=== PATIENT | male | born 1935 | race Caucasian/White ===

== ENCOUNTER 2019-10-06 13:11 | Observation (INO) | payer MEDICARE, OTHER, SELFPAY ==
[2019-10-06] VITALS (19 sets, daily range): BP systolic 125–166; BP diastolic 60–96; PULSE 50–80; RESP 14–20; TEMP 36–36.2; O2SAT 95–98; BMI 34.2
[2019-10-06 13:55] LABS: Add Manual Diff / Slide Review NO; Basophils Absolute Auto 100 /uL (0-100); Basophils Percent Auto 0.7 % (0-2); Eosinophils Absolute Auto 200 /uL (0-450); Eosinophils Percent Auto 2.9 % (2-4); Hematocrit 39.7 % (41-53); Hemoglobin 13.9 g/dL (13.5-17.5); Lymphocytes Absolute Auto 1700 /uL (1100-4500); Lymphocytes Percent Auto 21.8 % (25-40); Mean Corpuscular HGB Conc 35.1 % (30-36); Mean Corpuscular Hemoglobin 31.5 PG (26-34); Mean Corpuscular Volume 89.9 fL (80-100); Monocytes Absolute Auto 400 /uL (0-900); Monocytes Percent Auto 5.6 % (3-14); Neutrophils Absolute Auto 5500 /uL (1500-7000); Platelet Count 211 X10^3/uL (150-400); Prothrombin Time 11.9 SECONDS (10.1-12.7); Red Blood Cell Count 4.41 X10^6/uL (4.5-5.9); Red Cell Distribution Width 13.6 % (11.6-14.8); White Blood Cell Count 7.9 X10^3/uL (4.5-11.0)
[2019-10-06 14:00] LABS: Alanine Aminotransferase 28 IU/L (<50); Albumin 4.4 g/dL (3.5-5.0); Albumin Globulin Ratio 1.3 (1.0-2.8); Alkaline Phosphatase 88 U/L (38-126); Aspartate Aminotransferase 28 IU/L (17-59); BUN Creatinine Ratio 22.4 (6-22); Bilirubin Total 0.8 mg/dL (0.2-1.3); Blood Urea Nitrogen 32 mg/dL (9-20); Calcium 9.6 mg/dL (8.4-10.2); Carbon Dioxide 25 mmol/L (22-32); Chloride 96 mmol/L (98-107); Estimated Glomerular Filt Rate 47.3 mL/min (>60); Globulin 3.3 g/dL (1.7-4.1); HEMOLYSIS < 15 (0-50); Potassium 3.6 mmol/L (3.4-5.1); Sodium 133 mmol/L (137-145); Total Protein 7.7 g/dL (6.3-8.2)
[2019-10-06 14:11] LABS: Troponin I < 0.012 ng/mL (0.01-0.034)
[2019-10-06 14:18] LABS: Glucose 572 mg/dL (80-110)
--- NOTE | 2019-10-06 14:22 | DI.RAD.S_ITS ---
PROCEDURE: XR CHEST 1V INDICATIONS: dyspnea TECHNIQUE: One view of the chest was acquired. COMPARISON: None. FINDINGS: Surgical changes and devices: None. Lungs and pleura: Lungs are clear. No pleural effusions or pneumothorax. Mediastinum: Mediastinal contours appear normal. Heart size is normal. Bones and chest wall: No suspicious bony lesions. Overlying soft tissues appear unremarkable. IMPRESSION: No acute cardiopulmonary process is evident. Dictated by: Иван Rosario M.D. on 10/06/2019 at 14:09 Approved by: Иван Rosario M.D. on 10/06/2019 at 14:09
--- NOTE | 2019-10-06 14:24 | ED.GENADULT ---
HPI - General Adult General Chief complaint: Diabetic Problem Stated complaint: blood sugar elevated,thinks abn blood pressure Time Seen by Provider: 10/06/19 13:44 Source: patient Mode of arrival: Wheelchair Limitations: no limitations History of Present Illness HPI narrative: Patient brought here by son power of [employer], from retirement that his assisted living for multiple complaints.. Son is not completely sure of all of his medical problems and how long it has been going on but there is history of stroke. Patient is nonverbal. 3 days ago. Patient here for dyspnea right leg swelling high glucose. No prior history of diabetes. Again, unknown time onset of the symptoms Related Data Home Medications Medication Instructions Recorded Confirmed acetaminophen 650 mg PO Q4-6H PRN 10/06/19 10/06/19 albuterol sulfate 0.63 mg INHALATION Q4H PRN 10/06/19 10/06/19 cholecalciferol (vitamin D3) 50 mcg PO DAILY 10/06/19 10/06/19 [Vitamin D3] clopidogrel 75 mg PO DAILY 10/06/19 10/06/19 famotidine 20 mg PO DAILY 10/06/19 10/06/19 hydrochlorothiazide 25 mg PO DAILY 10/06/19 10/06/19 lactulose 30 g PO DAILY PRN 10/06/19 10/06/19 metformin 500 mg PO BIDAC 10/06/19 10/06/19 simvastatin 40 mg PO BEDTIME 10/06/19 10/06/19 tizanidine 2 mg PO DAILY 10/06/19 10/06/19 venlafaxine 75 mg PO BID 10/06/19 10/06/19 Allergies Allergy/AdvReac Type Severity Reaction Status Date / Time aspirin Allergy Verified 10/06/19 13:25 Penicillins Allergy Verified 10/06/19 13:25 Review of Systems Review of Systems Narrative: GENERAL: Denies chills, fatigue, malaise, fever, sweats. HEENT: Denies sinus pain, ear pain, sore throat, difficulty swallowing, dizziness. RESPIRATORY: Denies cough, wheezing, hemoptysis, sputum. Complains of dyspnea CARDIOVASCULAR: Denies chest pain, palpitations, orthopnea, edema, GASTROINTESTINAL: Denies nausea, vomiting, abdominal pain, diarrhea, constipation, melena. : Denies dysuria, frequency, incontinence, hematuria, urinary retention. MUSCULOSKELETAL: denies weakness, joint pain, or bony pain SKIN: Denies rash, skin lesions, or other NEUROLOGIC: Denies weakness, headache, numbness, change in speech, confusion, seizures, incoordination. PSYCHIATRIC: No concerning psychosocial issues. ROS Unobtainable: All systems reviewed & are unremarkable except as noted in HPI and below Patient History Social History household members: other Smoking Status: Former smoker alcohol intake: never Smoking Status: Former smoker Substance Use Type: does not use Exam Narrative Exam Narrative: GENERAL: patient appears stated age. Well-nourished, well-developed patient, in no distress, not toxic HEAD: Atraumatic. Normocephalic. EYES: Pupils equal round and reactive. Extraocular motions intact. No scleral icterus. No injection or drainage. ENT: Nose without bleeding, purulent drainage. Throat without erythema, tonsillar hypertrophy or exudate. Airway patent. NECK: Trachea midline. Non tender CARDIOVASCULAR: Regular rate and rhythm without murmurs, gallops, or rubs. RESPIRATORY: Clear to auscultation. Breath sounds equal bilaterally. No wheezes, rales, or rhonchi. GASTROINTESTINAL: Abdomen soft, non-tender, nondistended. EXTREMITIES: No edema or joint tenderness. Right leg and supportive splint, splint removed, right calf slightly grossly larger than the left, 2+ pedal edema, leg and foot warm soft and pink. BACK: Nontender without deformity or crepitance. No flank tenderness. 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 Right-sided deficits or weakness. SKIN: No rash or erythema of visible areas PSYCH: Not anxious, is cooperative Initial Vital Signs Initial Vital Signs: Vital Signs Temperature 97.0 F L 10/06/19 13:19 Pulse Rate 80 10/06/19 13:19 Respiratory Rate 18 10/06/19 13:19 Blood Pressure 163/79 H 10/06/19 13:19 Pulse Oximetry 98 10/06/19 13:19 Course Course Course Narrative: Patient was seen by hospitalist Dr. Cortez..will admit start insulin Decision to Admit Date: 10/06/19 Decision to Admit time: 18:36 Orders Ordered: Acetaminophen (Tylenol) 650 mg PO Q4H PRN PRN Reason: Pain (Scale Score 1-3) Clopidogrel Bisulfate (Plavix) 75 mg PO DAILY [facility] Dextrose (D50w) 25 gm IV PRN PRN PRN Reason: Hypoglycemia Enoxaparin Sodium (Lovenox) 40 mg SUBCUT DAILY [facility] Sodium Chloride (Normal Saline 0.9%) 1,000 mls @ 100 mls/hr IV CONT [facility] Last Admin: 10/06/19 23:44 Dose: 100 mls/hr Documented by: GEORGI Insulin Aspart (Novolog Flexpen) 0 unit SUBCUT ACHS [facility]; Protocol Last Admin: 10/06/19 21:38 Dose: 7 unit Documented by: ALEX Cosigned by: JUNAID Insulin Glargine (Lantus Solostar (Pen)) 15 unit SUBCUT 2100 [facility] Last Admin: 10/06/19 21:38 Dose: 15 unit Documented by: ALEX Cosigned by: JUNAID Naloxone HCl (Narcan) 0.2 mg IV Q2MIN PRN PRN Reason: Opiate Reversal Ondansetron HCl (Zofran) 4 mg IV Q8HR PRN PRN Reason: Nausea And Vomiting Simvastatin (Zocor) 40 mg PO BEDTIME [facility] Venlafaxine HCl (Effexor) 75 mg PO BID [facility] Discontinued Medications Sodium Chloride (Normal Saline 0.9%) 1,000 mls @ 1,000 mls/hr IV BOLUS ONE Stop: 10/06/19 21:39 Last Admin: 10/06/19 21:40 Dose: 1,000 mls/hr Documented by: ALEX Insulin Human NPH (Humulin N) 10 unit SUBCUT NOW ONE Stop: 10/06/19 18:36 Last Admin: 10/06/19 20:13 Dose: 10 unit Documented by: JUNAID Mckeonigned by: ALEX Potassium Chloride (Klor-Con M20) 40 meq PO NOW ONE Stop: 10/07/19 06:51 Reevaluation(s) Reevaluation #1: No new issues.. Awaiting evaluation by hospitalist which is now complete. Time: 18:36 Consultations Consultation #1: Spoke with hospitalist, he wants the patient before being admitted Vital Signs Vital signs: Vital Signs - 8 hr 10/06/19 13:19 10/06/19 15:30 10/06/19 16:36 Temperature 97.0 F L Pulse Rate 80 72 72 Respiratory Rate 18 16 20 Blood Pressure 163/79 H 138/63 132/75 Pulse Oximetry 98 97 96 10/06/19 17:40 Temperature Pulse Rate 70 Respiratory Rate 20 Blood Pressure 130/60 Pulse Oximetry 97 Medical Decision Making Lab Data Result diagrams: 10/07/19 05:38 10/07/19 05:38 Labs: Lab Results 10/06/19 10/06/19 10/06/19 Range/Units 13:40 13:40 13:40 WBC 7.9 (4.5-11.0) X10^3/uL RBC 4.41 L (4.5-5.9) X10^6/uL Hgb 13.9 (13.5-17.5) g/dL Hct 39.7 L (41-53) % MCV 89.9 (80-100) fL MCH 31.5 (26-34) PG MCHC 35.1 (30-36) % RDW 13.6 (11.6-14.8) % Plt Count 211 (150-400) X10^3/uL Neut % (Auto) 69.0 (50-75) % Lymph % (Auto) 21.8 L (25-40) % Morgan % (Auto) 5.6 (3-14) % Eos % (Auto) 2.9 (2-4) % Baso % (Auto) 0.7 (0-2) % Neut # (Auto) 5500 (4057-4504) /uL Lymph # (Auto) 1700 (8756-9415) /uL Morgan # (Auto) 400 (0-900) /uL Eos # (Auto) 200 (0-450) /uL Baso # (Auto) 100 (0-100) /uL PT 11.9 (10.1-12.7) SECONDS INR 1.0 (0.9-1.3) APTT (26.4-36.2) SECONDS D-Dimer (<230) ng/mL Sodium (137-145) mmol/L Potassium (3.4-5.1) mmol/L Chloride (98-107) mmol/L Carbon Dioxide (22-32) mmol/L BUN (9-20) mg/dL Creatinine (0.66-1.25) mg/dL Estimated GFR (>60) mL/min BUN/Creatinine Ratio (6-22) Glucose (80-110) mg/dL Hemoglobin A1c (4.0-6.0) % Calcium (8.4-10.2) mg/dL Total Bilirubin (0.2-1.3) mg/dL AST (17-59) IU/L ALT (<50) IU/L Alkaline Phosphatase (38-126) U/L Troponin I < 0.012 (0.01-0.034) ng/mL NT-Pro-B Natriuret Pep (<450) pg/mL Total Protein (6.3-8.2) g/dL Albumin (3.5-5.0) g/dL Globulin (1.7-4.1) g/dL Albumin/Globulin Ratio (1.0-2.8) Lipase (23-300) U/L Ketones (<0.27) mmol/L 10/06/19 10/06/19 10/06/19 Range/Units 13:40 13:40 13:40 WBC (4.5-11.0) X10^3/uL RBC (4.5-5.9) X10^6/uL Hgb (13.5-17.5) g/dL Hct (41-53) % MCV (80-100) fL MCH (26-34) PG MCHC (30-36) % RDW (11.6-14.8) % Plt Count (150-400) X10^3/uL Neut % (Auto) (50-75) % Lymph % (Auto) (25-40) % Morgan % (Auto) (3-14) % Eos % (Auto) (2-4) % Baso % (Auto) (0-2) % Neut # (Auto) (7010-9616) /uL Lymph # (Auto) (7944-5980) /uL Morgan # (Auto) (0-900) /uL Eos # (Auto) (0-450) /uL Baso # (Auto) (0-100) /uL PT (10.1-12.7) SECONDS INR (0.9-1.3) APTT 29 (26.4-36.2) SECONDS D-Dimer < 200 (<230) ng/mL Sodium 133 L (137-145) mmol/L Potassium 3.6 (3.4-5.1) mmol/L Chloride 96 L (98-107) mmol/L Carbon Dioxide 25 (22-32) mmol/L BUN 32 H (9-20) mg/dL Creatinine 1.43 H (0.66-1.25) mg/dL Estimated GFR 47.3 L (>60) mL/min BUN/Creatinine Ratio 22.4 H (6-22) Glucose 572 H* (80-110) mg/dL Hemoglobin A1c (4.0-6.0) % Calcium 9.6 (8.4-10.2) mg/dL Total Bilirubin 0.8 (0.2-1.3) mg/dL AST 28 (17-59) IU/L ALT 28 (<50) IU/L Alkaline Phosphatase 88 (38-126) U/L Troponin I (0.01-0.034) ng/mL NT-Pro-B Natriuret Pep (<450) pg/mL Total Protein 7.7 (6.3-8.2) g/dL Albumin 4.4 (3.5-5.0) g/dL Globulin 3.3 (1.7-4.1) g/dL Albumin/Globulin Ratio 1.3 (1.0-2.8) Lipase 50 (23-300) U/L Ketones (<0.27) mmol/L 10/06/19 10/06/19 10/06/19 Range/Units 13:40 13:40 16:20 WBC (4.5-11.0) X10^3/uL RBC (4.5-5.9) X10^6/uL Hgb (13.5-17.5) g/dL Hct (41-53) % MCV (80-100) fL MCH (26-34) PG MCHC (30-36) % RDW (11.6-14.8) % Plt Count (150-400) X10^3/uL Neut % (Auto) (50-75) % Lymph % (Auto) (25-40) % Morgan % (Auto) (3-14) % Eos % (Auto) (2-4) % Baso % (Auto) (0-2) % Neut # (Auto) (4679-0388) /uL Lymph # (Auto) (8348-0692) /uL Morgan # (Auto) (0-900) /uL Eos # (Auto) (0-450) /uL Baso # (Auto) (0-100) /uL PT (10.1-12.7) SECONDS INR (0.9-1.3) APTT (26.4-36.2) SECONDS D-Dimer (<230) ng/mL Sodium (137-145) mmol/L Potassium (3.4-5.1) mmol/L Chloride (98-107) mmol/L Carbon Dioxide (22-32) mmol/L BUN (9-20) mg/dL Creatinine (0.66-1.25) mg/dL Estimated GFR (>60) mL/min BUN/Creatinine Ratio (6-22) Glucose (80-110) mg/dL Hemoglobin A1c 9.7 H (4.0-6.0) % Calcium (8.4-10.2) mg/dL Total Bilirubin (0.2-1.3) mg/dL AST (17-59) IU/L ALT (<50) IU/L Alkaline Phosphatase (38-126) U/L Troponin I (0.01-0.034) ng/mL NT-Pro-B Natriuret Pep 210 (<450) pg/mL Total Protein (6.3-8.2) g/dL Albumin (3.5-5.0) g/dL Globulin (1.7-4.1) g/dL Albumin/Globulin Ratio (1.0-2.8) Lipase (23-300) U/L Ketones 0.13 (<0.27) mmol/L Imaging Data US - DVT: Radiologist's Impression: [place] [address] Ultrasound Report Signed Patient: Dhruv Hernandez [facility]#: [id number] : 8Acct:[id number] Age/Sex: 84 / MDate of Service: 10/06/19 Loc: ED Accession Number: [id number] Procedure: US periph venous low extrem rt Ordering Provider: Ray More MD PROCEDURE: US PERIPH VENOUS LOW EXTREM RT INDICATIONS: EDEMA TECHNIQUE: Real-time imaging, as well as color and pulse Doppler interrogation, were performed of the lower extremity deep veins from the inguinal ligament to the popliteal fossa. COMPARISON: None. FINDINGS: The common femoral, femoral and popliteal veins are normally compressible, and free of intraluminal thrombus. Color and pulse Doppler demonstrate normal phasic intraluminal flow. There is normal augmentation response to distal compression maneuver. IMPRESSION: No evidence of deep vein thrombosis involving the right lower extremity. Dictated by: Jessica Pedro MD, PhD on 10/06/2019 at 14:51 Approved by: Jessica Pedro MD, PhD on 10/06/2019 at 14:52 Chest x-ray: Radiologist's Impression: [place] [address] XRay Report Signed Patient: Dhruv Hernandez [facility]#: [id number] : 8Acct:[id number] Age/Sex: 84 / MDate of Service: 10/06/19 Loc: ED Accession Number: [id number] Procedure: XR chest 1V Ordering Provider: Ray More MD PROCEDURE: XR CHEST 1V INDICATIONS: dyspnea TECHNIQUE: One view of the chest was acquired. COMPARISON: None. FINDINGS: Surgical changes and devices: None. Lungs and pleura: Lungs are clear. No pleural effusions or pneumothorax. Mediastinum: Mediastinal contours appear normal. Heart size is normal. Bones and chest wall: No suspicious bony lesions. Overlying soft tissues appear unremarkable. IMPRESSION: No acute cardiopulmonary process is evident. Dictated by: Иван Rosario M.D. on 10/06/2019 at 14:09 Approved by: Иван Rosario M.D. on 10/06/2019 at 14:09 ECG Data Attestation: I personally reviewed and interpreted this ECG as follows: Interpretation: Sinus rhythm ventricular rate [address] elevation depression MDM Narrative Medical decision making narrative: Spoke with son regarding code status. There is a forming has that patient is full code however another form that patient is no any IV fluids or antibiotic treatment. Son is power of civil rights attorney he states as of right now he would like everything done. There is limited nursing care at the detention that patient is at. Appropriate for admission to the hospital today Discharge Plan Departure Patient Disposition: Admitted as Observation Clinical Impression: Acute hyperglycemia Discharge Date/Time: 10/06/19 19:00 Admit Date/Time: 10/06/19 18:26 Admit Provider: Daniel Cortez
[2019-10-06 14:37] LABS: Lipase 50 U/L (23-300)
[2019-10-06 14:38] LABS: PTT Partial Thromboplastin Tim 29 SECONDS (26.4-36.2)
[2019-10-06 14:40] LABS: D Dimer < 200 ng/mL (<230)
[2019-10-06 15:57] LABS: NT-proBNP (BNP-Adult 18+) 210 pg/mL (<450)
[2019-10-06 16:32] LABS: Ketones (Beta-Hydroxybutyrate) 0.13 mmol/L (<0.27)
--- NOTE | 2019-10-06 19:00 | PC.NURSE ---
NPH insulin ordered-acknowledged.No NPH available in the ED.Report given to incendiaries supervisor Marisela GRACIA with note that insulin has not been given because of unavailability.
--- NOTE | 2019-10-06 19:24 | P.HP_ITS ---
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 Patient's spouse and previous health care proxy 3 days ago and the son, jaylan COX, is present at the bed side. He does not know much about the patient's history given he took over now 3 days ago. He was told a similar story and we telephoned his living facility in [place]. Patient has had increasing blood sugars over the past few months, up to >500 today. He also has been appearing short of breath the past few days with little exertion and R lower extremity swelling more than usual. In the ER, patient's vitals were notable for mild HTN, but otherwise unremarkable. CBC was unremarkable. Sodium was 133, corrected normal for glucose of 572. Creatinine of 1.43 (unknown baseline). AG was 12. Ketones were negative. Troponin was negative. Covid 19 was negative. CXR negative and RLE US negative for DVT. Patient was admitted under observation status for hyperglycemia with possible HHS. Patient History Family & Social History Tobacco & Substance use: Smoking Status Former smoker Substance Use Type does not use Meds Home Medications and Allergies Home Medications Medication Instructions Recorded Confirmed Type acetaminophen 650 mg PO Q4-6H PRN 10/06/19 10/06/19 History albuterol sulfate 0.63 mg INHALATION Q4H PRN 10/06/19 10/06/19 History cholecalciferol (vitamin D3) 50 mcg PO DAILY 10/06/19 10/06/19 History [Vitamin D3] clopidogrel 75 mg PO DAILY 10/06/19 10/06/19 History famotidine 20 mg PO DAILY 10/06/19 10/06/19 History hydrochlorothiazide 25 mg PO DAILY 10/06/19 10/06/19 History lactulose 30 g PO DAILY PRN 10/06/19 10/06/19 History metformin 500 mg PO BIDAC 10/06/19 10/06/19 History simvastatin 40 mg PO BEDTIME 10/06/19 10/06/19 History tizanidine 2 mg PO DAILY 10/06/19 10/06/19 History venlafaxine 75 mg PO BID 10/06/19 10/06/19 History Allergies Allergy/AdvReac Type Severity Reaction Status Date / Time aspirin Allergy Verified 10/06/19 13:25 Penicillins Allergy Verified 10/06/19 13:25 Review of Systems Review of Systems Narrative: All other systems reviewed with the patient and are negative unless otherwise stated. Exam Vital Signs (past 8 hours): - 10/06/19 13:19 10/06/19 15:30 10/06/19 15:37 Temperature 97.0 F L Pulse Rate 80 72 71 Respiratory Rate 18 16 14 Blood Pressure 163/79 H 138/63 Pulse Oximetry 98 97 95 10/06/19 16:00 10/06/19 16:01 10/06/19 16:30 Temperature Pulse Rate 75 73 72 Respiratory Rate 15 14 17 Blood Pressure 166/78 H Pulse Oximetry 96 95 96 10/06/19 16:31 10/06/19 16:36 10/06/19 17:00 Temperature Pulse Rate 71 72 68 Respiratory Rate 17 20 14 Blood Pressure 132/75 132/75 135/65 Pulse Oximetry 96 96 95 10/06/19 17:30 10/06/19 17:31 10/06/19 17:40 Temperature Pulse Rate 68 70 70 Respiratory Rate 14 17 20 Blood Pressure 130/60 130/60 Pulse Oximetry 96 96 97 10/06/19 18:00 10/06/19 18:01 10/06/19 18:30 Temperature Pulse Rate 74 72 65 Respiratory Rate 20 18 14 Blood Pressure 146/96 H Pulse Oximetry 96 96 95 10/06/19 19:00 Temperature Pulse Rate 71 Respiratory Rate Blood Pressure Pulse Oximetry 96 Oxygen Delivery Method Room Air Narrative Exam Narrative: GENERAL APPEARANCE: Well developed, well nourished, in no acute distress. SKIN: Inspection of the skin reveals no rashes, ulcerations or petechiae. HEENT: Normocephalic atraumatic, extraocular muscles are intact, oropharynx is clear and mucous membranes are moist, neck is supple without adenopathy NECK: Supple and symmetric. There was no thyroid enlargement, and no tenderness, or masses were felt. CHEST: Normal AP diameter and normal contour without any kyphoscoliosis. LUNGS: Auscultation of the lungs revealed no wheezes, rhonchi, or rales. CARDIOVASCULAR: There was a regular rate and rhythm without any murmurs, gallops, rubs. Peripheral pulses were 2+ and symmetric. ABDOMEN: Soft and nontender with normal bowel sounds. MUSCULOSKELETAL: There was no tenderness or effusions noted. RLE in boot for foot drop. EXTREMITIES: No cyanosis, clubbing. Mild bilateral lower extremity edema, R somewhat > L. NEUROLOGIC: aphasic with R hemiplegia. Follows very simple commands sometimes but not others. Objective Labs Result Diagrams: 10/06/19 13:40 10/06/19 13:40 Labs: Laboratory Results - last 24 hr 10/06/19 10/06/19 10/06/19 13:40 13:40 13:40 WBC 7.9 RBC 4.41 L Hgb 13.9 Hct 39.7 L MCV 89.9 MCH 31.5 MCHC 35.1 RDW 13.6 Plt Count 211 Neut % (Auto) 69.0 Lymph % (Auto) 21.8 L Valley % (Auto) 5.6 Eos % (Auto) 2.9 Baso % (Auto) 0.7 Neut # (Auto) 5500 Lymph # (Auto) 1700 [place] # (Auto) 400 Eos # (Auto) 200 Baso # (Auto) 100 PT 11.9 INR 1.0 APTT D-Dimer Sodium Potassium Chloride Carbon Dioxide BUN Creatinine Estimated GFR BUN/Creatinine Ratio Glucose Calcium Total Bilirubin AST ALT Alkaline Phosphatase Troponin I < 0.012 NT-Pro-B Natriuret Pep Total Protein Albumin Globulin Albumin/Globulin Ratio Lipase Ketones 10/06/19 10/06/19 10/06/19 13:40 13:40 13:40 WBC RBC Hgb Hct MCV MCH MCHC RDW Plt Count Neut % (Auto) Lymph % (Auto) Valley % (Auto) Eos % (Auto) Baso % (Auto) Neut # (Auto) Lymph # (Auto) Valley # (Auto) Eos # (Auto) Baso # (Auto) PT INR APTT 29 D-Dimer < 200 Sodium 133 L Potassium 3.6 Chloride 96 L Carbon Dioxide 25 BUN 32 H Creatinine 1.43 H Estimated GFR 47.3 L BUN/Creatinine Ratio 22.4 H Glucose 572 H* Calcium 9.6 Total Bilirubin 0.8 AST 28 ALT 28 Alkaline Phosphatase 88 Troponin I NT-Pro-B Natriuret Pep Total Protein 7.7 Albumin 4.4 Globulin 3.3 Albumin/Globulin Ratio 1.3 Lipase 50 Ketones 10/06/19 10/06/19 13:40 16:20 WBC RBC Hgb Hct MCV MCH MCHC RDW Plt Count Neut % (Auto) Lymph % (Auto) Valley % (Auto) Eos % (Auto) Baso % (Auto) Neut # (Auto) Lymph # (Auto) Valley # (Auto) Eos # (Auto) Baso # (Auto) PT INR APTT D-Dimer Sodium Potassium Chloride Carbon Dioxide BUN Creatinine Estimated GFR BUN/Creatinine Ratio Glucose Calcium Total Bilirubin AST ALT Alkaline Phosphatase Troponin I NT-Pro-B Natriuret Pep 210 Total Protein Albumin Globulin Albumin/Globulin Ratio Lipase Ketones 0.13 Assessment & Plan Assessment & Plan narrative: Dhruv Hernandez is an 84 year old male with 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 1. type 2 diabetes with hyperglycemia and possible HHS. - patient with elevated glucose of 572 on admission with some reports of confusion and vague symptoms described by assisted living facility in [facility]. - no anion gap or ketones - patient was just started today on metformin despite rising blood sugars at care facility. - given 10 units of NPH in ER. Start lantus 15 units tonight with sliding scale and continue to adjust as necessary. - will give NS bolus and continue on 100 cc per hour for possible HHS 2. Elevated creatine - Cr 1.43 on admission. Unknown baseline. Possible JOSE C given presentation with relative dehydration in severe hyperglycemia. - continue to follow creatinine 3. Shortness of breath - reported by care facility, patient is not hypoxic and unable to futher communicate. Mild b/l LE edema. Pro-BNP 210. - will obtain TTE. May be vague symptoms in the setting of HHS and hyperglycemia. 4. prior CVA - contineu home plavix, lipitor 5. HTN - will hold home HCTZ given relative dehydration, consider alternative agent if hypertensive like an bessie or arb. Code: Full DVT: Lovenox daily
[2019-10-06] MEDS: INSULIN NPH 100 UNIT/ML VIAL 10 UNIT SUBCUT (20:13)
[2019-10-06 20:29] LABS: COVID19 -Nasal RAPID Negative (Negative)
--- NOTE | 2019-10-06 20:39 | PC.NURSE ---
Addendum entered by Nena Henderson R.N. 10/06/19 22:55: 2130 - ICU reports possible A-fib per cardiac rhythm strip. EKG obtained. Pt found to be SA/SB. Resting in bed. Original Note: Pt to room from ER. Expressive and Receptive aphasia, right sided paralysis as a result of a CVA 4 years ago per son. Pt uses a brace on RLE with activity and a quad cane for stand pivot transfers. Pt was his primary caregiver until the time of her 3 days ago. Pt son denies swallow issues, however reports that pt will spit out meds if not crushed, per Assisted Living Facility, [facility]. Pt son assisted with admission assessment. BG 423, 10 units NPH given per ER order (not previously administered). Lety Rodas notified of patient arrival.
[2019-10-06] MEDS: INSULIN GLARGINE 100 UNIT/ML 3ML PEN 15 UNIT SUBCUT (21:38)
[2019-10-06] MEDS: INSULIN ASPART 100 UNIT/ML INSULN PEN SUBCUT (21:38)
[2019-10-06] MEDS: SODIUM CHLORIDE 0.9% 1,000 ML 1000 ML IV (21:40)
--- NOTE | 2019-10-06 21:57 | DI.ECHO.S_ITS ---
[facility] +---------+ : : [address] : [address] : : : : [id number] : : : : Phone: [phone] Echocardiogram Report + + :Name: BRAD BUENO Study Date: 10/07/2019 Height: 66 in : :[facility] Weight: 211 lb : : Gender: Male BSA: 2.0 m2 : :: 1935 Age: 84 yrs BP: 135/55 mmHg: :Reason For Study: DYSPNEA : :Ordering Physician: HOSPITALIST, : :NANCY Performed By: Myra Beebe : :Referring: MELLY FERREIRA : + + Interpretation Summary The left ventricle is normal in size and wall thickness. Left ventricular systolic function is normal without focal wall motion abnormalities. The ejection fraction is estimated to be 55-60%. LVEF has not changed since prior study. Diastolic parameters suggest probable normal left ventricular diastolic function and normal filling pressures. The right ventricle is not well visualized. The right ventricle is grossly normal size. The right ventricular systolic function is normal. Right ventricular systolic pressure is estimated to be 22 mmHg plus the clinically estimated CVP which cannot be estimated on this exam. The left atrial size is normal. Right atrial size is normal. There is no significant valvular heart disease. Procedure: A two-dimensional transthoracic echocardiogram with color flow and Doppler was performed. The study quality was technically difficult. Comparison is made with the echocardiogram of 05/12/2013. The subcostal views were difficult to obtain and are suboptimal in quality. The heart rate ranged between 58-64 bpm during the study. Left Ventricle: The left ventricle is normal in size and wall thickness. Left ventricular systolic function is normal without focal wall motion abnormalities. The ejection fraction is estimated to be 55-60%. Diastolic parameters suggest probable normal left ventricular diastolic function and normal filling pressures. Right Ventricle: The right ventricle is not well visualized. The right ventricle is grossly normal size. The right ventricular systolic function is normal. Atria: The left atrial size is normal. Right atrial size is normal. There is no Doppler evidence for an interatrial shunt. Mitral Valve: The mitral valve leaflets appear mildly thickened, but open well. There is trace mitral regurgitation. Aortic Valve: The aortic valve is not well visualized. The aortic valve is mildly calcified. There is no aortic valve stenosis. No aortic regurgitation is present. Tricuspid Valve: The tricuspid valve is not well visualized, but is grossly normal. There is trace tricuspid regurgitation. Right ventricular systolic pressure is estimated to be 22 mmHg plus the clinically estimated CVP which cannot be estimated on this exam. Pulmonic Valve: The pulmonic valve is not well visualized. There is no pulmonic valvular regurgitation. There is no significant valvular heart disease. Great Vessels: The aortic root is not well visualized. The ascending aorta could not be visualized. The inferior vena cava was not well visualized. Pericardium/ Pleura There is an anterior echo-free space consistent with a fat pad. There is no pleural effusion. MMode/2D Measurements & Calculations LVIDd: 3.9 cm LA A2 area: 14.9 cm2 LVIDs: 2.7 cm LA A4 area: 15.6 cm2 FS: 31.1 % LA length (vol): 4.6 cm EPSS: 0.59 cm LA vol: 42.9 ml IVSd: 1.0 cm LA vol index: 21.0 ml/m2 LVPWd: 0.80 cm LV [place]. diameter/BSA (cm/m^2): 1.9 LV sys. diameter/BSA (cm/m^2): 1.3 RA long axis: 4.5 cm TAPSE: 2.0 cm RA area: 12.9 cm2 RA vol: 31.1 ml RA : 15.2 ml/m2 Doppler Measurements & Calculations Ao V2 max: 156.8 cm/sec LVOT Max Davion: 85.2 cm/sec Ao V2 mean: 117.8 cm/sec LV V1 max P.9 mmHg Ao max P.8 mmHg LV V1 VTI: 20.3 cm Ao mean P.0 mmHg sev ratio: 0.61 Ao V2 VTI: 33.2 cm MV E max davion: 76.5 cm/sec TR max davion: 235.9 cm/sec MV A max davion: 74.6 cm/sec TR max P.4 mmHg MV E/A: 1.0 PA V2 max: 83.5 cm/sec Med Peak E' Davion: 5.8 cm/sec PA V2 mean: 58.8 cm/sec E/E' med: 13.3 PA mean P.6 mmHg Lat Peak E' Davion: 6.7 cm/sec PA pr(Accel): 22.5 mmHg E/E' lat: 11.3 E/e' average: 12.3 MV dec time: 0.22 sec Reading Physician:03:30 PM
[2019-10-06 22:03] LABS: Hemoglobin A1C% w Est Avg Glu 9.7 % (4.0-6.0)
[2019-10-06] MEDS: SODIUM CHLORIDE 0.9% 1,000 ML 100 ML IV (23:44)
[2019-10-07] VITALS (7 sets, daily range): BP systolic 110–135; BP diastolic 50–71; PULSE 46–78; RESP 16–20; TEMP 36–36.7; O2SAT 93–98
--- NOTE | 2019-10-07 03:04 | PC.NURSE ---
Pt found to be in Afib, rate in 50's. VSS, asymptomatic - resting comfortably. FYI to MAURICIO Rodas. No new orders at this time.
[2019-10-07 05:53] LABS: Add Manual Diff / Slide Review NO; Basophils Absolute Auto 100 /uL (0-100); Basophils Percent Auto 0.8 % (0-2); Eosinophils Absolute Auto 300 /uL (0-450); Eosinophils Percent Auto 4.3 % (2-4); Hematocrit 36.2 % (41-53); Hemoglobin 12.7 g/dL (13.5-17.5); Lymphocytes Absolute Auto 2500 /uL (1100-4500); Lymphocytes Percent Auto 31.7 % (25-40); Mean Corpuscular HGB Conc 35.1 % (30-36); Mean Corpuscular Hemoglobin 31.3 PG (26-34); Mean Corpuscular Volume 89.1 fL (80-100); Monocytes Absolute Auto 500 /uL (0-900); Monocytes Percent Auto 6.7 % (3-14); Neutrophils Absolute Auto 4400 /uL (1500-7000); Neutrophils Percent Auto 56.5 % (50-75); Platelet Count 186 X10^3/uL (150-400); Red Blood Cell Count 4.06 X10^6/uL (4.5-5.9); Red Cell Distribution Width 13.7 % (11.6-14.8); White Blood Cell Count 7.7 X10^3/uL (4.5-11.0)
[2019-10-07 05:59] LABS: Alanine Aminotransferase 22 IU/L (<50); Albumin 3.7 g/dL (3.5-5.0); Albumin Globulin Ratio 1.2 (1.0-2.8); Alkaline Phosphatase 67 U/L (38-126); Aspartate Aminotransferase 23 IU/L (17-59); BUN Creatinine Ratio 23.5 (6-22); Bilirubin Total 0.7 mg/dL (0.2-1.3); Bilirubin Unconjugated 0.6 mg/dL (0.0-1.1); Blood Urea Nitrogen 27 mg/dL (9-20); Calcium 8.9 mg/dL (8.4-10.2); Carbon Dioxide 30 mmol/L (22-32); Chloride 100 mmol/L (98-107); Estimated Glomerular Filt Rate > 60.0 mL/min (>60); Globulin 3.1 g/dL (1.7-4.1); Glucose 216 mg/dL (80-110); HEMOLYSIS < 15 (0-50); Magnesium 1.8 mg/dL (1.6-2.3); Potassium 3.1 mmol/L (3.4-5.1); Sodium 136 mmol/L (137-145); Total Protein 6.8 g/dL (6.3-8.2)
[2019-10-07 06:35] LABS: TSH w/ Reflex to FT4 1.57 uIU/mL (0.47-4.68)
--- NOTE | 2019-10-07 06:52 | PC.NURSE ---
Addendum entered by Reji Amado R.N. 10/07/19 06:52: New replete K+ orders received. Original Note: K+ = 3.1. MAURICIO Rodas notified. No new orders.
[2019-10-07] MEDS: INSULIN ASPART 100 UNIT/ML INSULN PEN SUBCUT ×2 (09:33→13:16)
[2019-10-07] MEDS: VENLAFAXINE 37.5 MG TABLET 75 MG PO (10:20)
[2019-10-07] MEDS: CLOPIDOGREL 75 MG TABLET PO (10:20)
[2019-10-07] MEDS: ENOXAPARIN 40 MG/0.4 ML SYRINGE SUBCUT (10:21)
[2019-10-07] MEDS: POTASSIUM CHLORIDE 20 MEQ TAB 40 MEQ PO (10:21)
--- NOTE | 2019-10-07 12:35 | CM.IDA ---
Initial DCP Assessment Note Patient is an 84 yo male, resident [facility] [place]. Patient presents w/elevated blood sugar, increasing blood sugar over the last few months, SOB and LE swelling PCP: Dr Junior Payer: EPHRAIM/Maya Reviewed chart. Patient has h/o stroke and is non verbal. Patient's spouse 3 days ago and son Arnulfo has stepped in as DPOA. Patient's spouse and son Arnulfo's step mom, was the primary contact for patient and managed all details of patient's care and coordination. Spoke w/son Arnulfo today P# [phone], who admits he is only 4 days on the job and trying to learn more details about his Dad's care needs. Patient has been a resident at [facility] for 4 years since suffering from a stroke. [facility] provides total care and Arnulfo expects patient to return upon DC. Placed call to [facility] P# [phone], spoke w/ jeff Prakash. She expects patient to return home when medically cleared and requests DC Summary, DC instructions and Rx for Insulin (if going home on insulin) be faxed to F# [phone]. Transport TBD. Updated Dr Aguayo w/above. DC back to [facility] expected this afternoon. CORBY Blanco
--- NOTE | 2019-10-07 12:38 | PC.NURSE ---
DAy Shift- Pt's son Arnulfo visited this morning, stated pt is mainly non-verbal, does state yes, no, water. Not always consistent with the question being asked. Pt's son states pt is at his baseline. Pt OOB to BSC using right leg brace and 4 pronged cane pivot transfer from bed to BSC. Pt was able to move himself with little assist into sitting position from lying in bed, also from sitting to lying was able to lift both legs in the bed himself. Pt inc of urine in brief and also had large formed BM on BSC. ECHO done at 1230. Dr. evans aware echo was being performed at that time. Pt does use call light for TV control but does press call light assist button by mistake. High fall risk precautions in place, frequent rounding done. Pt appears comfortable.
--- NOTE | 2019-10-07 15:48 | DIET.PN ---
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 Per nursing, pt is mostly non-verbal, may answer yes/no, but occasionally answers c water. Pt has been observed attempting to pour apple sauce in cup and use spoon as straw. When set up with meals, pt able to successfully self-feed using L hand. Pt lives at adult family home which often have less rigorous dietary oversight than SNFs. Pt admitted c med list showing Metformin 500mg bid but no other DM meds. HT: 167.6cm WT: 96.1kg BMI:34.2 Labs:Admit BG 572 H, A1c 9.7, K+ 3.1 L Nutrition Diagnosis: altered nutrition-related laboratory values r/t endocrine dysfunction aeb A1c 9.7, admit BG 572. Interventions: 1. Recc relaying to [facility] dietary reccs for Consistant Carbohydrate Diet (45g per meal) in addition to hospitalist reccs for insulin dosing. Diet Order: CCD3
--- NOTE | 2019-10-07 15:51 | PM.DS.1 ---
History of Present Illness History of Present Illness Date Patient Seen: 10/06/19 Chief complaint: blood sugar elevated,thinks abn blood pressure Narrative: Written by Daniel Cortez: Dhruv Hernandez is an 84 year old male with 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 Patient's spouse and previous health care proxy 3 days ago and the son, jaylan COX, is present at the bedside. He does not know much about the patient's history given he took over now 3 days ago. He was told a similar story and we telephoned his living facility in [place]. Patient has had increasing blood sugars over the past few months, up to >500 today. He also has been appearing short of breath the past few days with little exertion and R lower extremity swelling more than usual. In the ER, patient's vitals were notable for mild HTN, but otherwise unremarkable. CBC was unremarkable. Sodium was 133, corrected normal for glucose of 572. Creatinine of 1.43 (unknown baseline). AG was 12. Ketones were negative. Troponin was negative. Covid 19 was negative. CXR negative and RLE US negative for DVT. Patient was admitted under observation status for hyperglycemia with possible HHS. Discharge Providers Provider Date of admission: 10/06/19 18:26 Discharge Date: 10/07/19 Primary care physician: Petros Junior MD Consults: 10/06/19 20:06 Consult to Dietitian, Adult Routine Comment: Reason For Exam: high risk Discharge provider: Liz Aguayo DO Summary Hospital Course Discharge Diagnosis: 1. Diabetes Mellitus type II with symptomatic HHS, present on admission. HHS resolved. 2. JOSE C, present on admission. Resolved. 3. Shortness of breath, likely secondary to HHS, present on admission. Resolved. 4. History of prior CVA with right-sided hemiparesis. 5. Hypertension, chronic, present on admission. Stable. Hospital Course: Dhruv Hernandez is an 84-year-old male with a past medical history significant for CVA 4 years ago with residual right-sided hemiparesis, aphasia, and difficulty with comprehension, diabetes, hypertension who presented from his assisted living facility with elevated blood sugars, blood pressures, and shortness of breath. 1. Diabetes Mellitus type II with symptomatic HHS, present on admission. HHS resolved. -Patient with elevated glucose of 572 on admission with some reports of confusion and vague symptoms described by assisted living facility in [place]. No anion gap or ketones. -Patient was just started today on metformin despite rising blood glucoses at care facility. -Received NPH 10 unitsx 1 in ED. Continued lantus 15 units and discharged on Tresiba which was on patients insurance coverage formulary. -Continued [facility] blood glucose checks and low dose correctional scale insulin. -Received 1 L blus NS and continued IV fluid hydration until adequately hydrated then discontinued. 2. JOSE C, present on admission. Resolved. -Secondary to dehydration and severe hyperglycemia. -Initial creatinine 1.43. Unknown baseline. Creatinine normalized at 1.15. -Continued IV fluid hydration until adequately hydrated then discontinued. -Continued to avoid nephrotoxic agents. 3. Shortness of breath, likely secondary to HHS, present on admission. Resolved. -Reported by care facility. -Patient was not hypoxemic and unable to futher communicate. Mild bilateral lower extremity edema that is chronic and likely due to venous insufficiency. -Chest x-ray did not demonstrate any acute cardiopulmonary process Pro-BNP 210. -Echocardiogram did not demonstrate any CHF or significant valve disease to cause shortness of breath. -Shortness of breath resolved with control of blood glucose. 4. History of prior CVA with right-sided hemiparesis. -Continued home Plavix 75 mg daily and simvastatin 40 mg daily at bedtime. 5. Hypertension, chronic, present on admission. Stable. -Initially held home hydrochlorothiazide due to HHS and dehydration. Restarted hydrochlorothiazide 25 mg daily at time of discharge. Exam Vital Signs (past 8 hours): - 10/07/19 08:00 10/07/19 09:30 10/07/19 12:00 Temperature 98.0 F 96.8 F L Pulse Rate 78 69 Respiratory Rate 18 16 Blood Pressure 128/50 L 135/55 L Pulse Oximetry 98 94 95 Oxygen Delivery Method Room Air Oxygen Flow Rate 0 Narrative Exam Narrative: General: Elderly male sitting in bed and in no acute distress, well-developed, well-nourished, aphasic and attempts to communicate but unable to do so. HEENT: Normocephalic, atraumatic. External ears without defect. Pupils equal, round, and reactive to light. Anicteric sclerae, moist conjunctivae, and no lid lag. Oropharynx free of erythema and cobble stoning with moist mucosa. Neck: Supple with full range of motion. No jugular venous distension. No lymphadenopathy or thyromegaly. Cardiovascular: Regular rate and rhythm without murmurs, rubs, or gallops appreciated. Pulmonary: Clear to auscultation bilaterally without crackles, wheezes, or rhonchi. Normal respiratory effort with no use of accessory muscles. Abdomen: Soft, bowel sounds present, nontender, nondistended. No hepatosplenomegaly or masses appreciated. Extremities: No clubbing or cyanosis. Mild bipedal edema. Skin: Normal temperature, turgor, and texture; no rash, ulcers, or subcutaneous nodules appreciated. Neurological: Aphasic. Right sided hemiparesis. Objective Labs Result Diagrams: 10/07/19 05:38 10/07/19 05:38 Labs: Laboratory Results - last 24 hr 10/06/19 10/06/19 10/06/19 13:40 13:40 16:20 WBC RBC Hgb Hct MCV MCH MCHC RDW Plt Count Neut % (Auto) Lymph % (Auto) Grimes % (Auto) Eos % (Auto) Baso % (Auto) Neut # (Auto) Lymph # (Auto) Grimes # (Auto) Eos # (Auto) Baso # (Auto) Sodium Potassium Chloride Carbon Dioxide BUN Creatinine Estimated GFR BUN/Creatinine Ratio Glucose Hemoglobin A1c 9.7 H Calcium Magnesium Total Bilirubin Conjugated Bilirubin Unconjugated Bilirubin AST ALT Alkaline Phosphatase NT-Pro-B Natriuret Pep 210 Total Protein Albumin Globulin Albumin/Globulin Ratio TSH Ketones 0.13 COVID-19 PCR 10/06/19 10/07/19 10/07/19 19:25 05:38 05:38 WBC 7.7 RBC 4.06 L Hgb 12.7 L Hct 36.2 L MCV 89.1 MCH 31.3 MCHC 35.1 RDW 13.7 Plt Count 186 Neut % (Auto) 56.5 Lymph % (Auto) 31.7 Grimes % (Auto) 6.7 Eos % (Auto) 4.3 H Baso % (Auto) 0.8 Neut # (Auto) 4400 Lymph # (Auto) 2500 Grimes # (Auto) 500 Eos # (Auto) 300 Baso # (Auto) 100 Sodium 136 L Potassium 3.1 L Chloride 100 Carbon Dioxide 30 BUN 27 H Creatinine 1.15 Estimated GFR > 60.0 BUN/Creatinine Ratio 23.5 H Glucose 216 H D Hemoglobin A1c Calcium 8.9 Magnesium 1.8 Total Bilirubin 0.7 Conjugated Bilirubin 0.0 Unconjugated Bilirubin 0.6 AST 23 ALT 22 Alkaline Phosphatase 67 NT-Pro-B Natriuret Pep Total Protein 6.8 Albumin 3.7 Globulin 3.1 Albumin/Globulin Ratio 1.2 TSH Ketones COVID-19 PCR Negative 10/07/19 05:38 WBC RBC Hgb Hct MCV MCH MCHC RDW Plt Count Neut % (Auto) Lymph % (Auto) Grimes % (Auto) Eos % (Auto) Baso % (Auto) Neut # (Auto) Lymph # (Auto) Grimes # (Auto) Eos # (Auto) Baso # (Auto) Sodium Potassium Chloride Carbon Dioxide BUN Creatinine Estimated GFR BUN/Creatinine Ratio Glucose Hemoglobin A1c Calcium Magnesium Total Bilirubin Conjugated Bilirubin Unconjugated Bilirubin AST ALT Alkaline Phosphatase NT-Pro-B Natriuret Pep Total Protein Albumin Globulin Albumin/Globulin Ratio TSH 1.57 Ketones COVID-19 PCR Discharge Plan Discharge Plan Patient Disposition: Assisted Living Transportation: Private vehicle Discharge comment: You are being discharged back to your adult family home. You had a high blood sugar due to uncontrolled diabetes mellitus type 2. Your hemoglobin A1c was 9.7% which correlates to an average blood sugar level of 200-250 at all times. Your goal hemoglobin A1c is 7.0% or less. You have been started on insulin called Tresiba 15 units daily at bedtime to better control blood sugar level. Continue metformin 500 mg twice daily and may want to considered increasing this medication and will defer this to his primary care physician. Please follow-up with his primary care physician, Dr. Junior, regarding his hospitalization and for tighter diabetic management. His echocardiogram did not demonstrate significant heart failure or reason for shortness of breath or swelling of extremities. He was likely short of breath due to the high blood sugar level. His intermittent lower extremity swelling is likely due to venous insufficiency or vein disease and could consider compression stockings and/or elevation of lower extremities as tolerated to help reduce swelling. Discharge orders & Medications Discharge Orders: Discharge (Order); Ordered 10/07/19 Ordered By: Liz Aguayo Prescriptions: New Tresiba FlexTouch U-100 100 unit/mL (3 mL) insulin pen 15 unit SUBCUT BEDTIME Qty: 15 RF: 0 Continued clopidogrel 75 mg tablet 75 mg PO DAILY RF: 0 albuterol sulfate 0.63 mg/3 mL Solution For Nebulization 0.63 mg INHALATION Q4H PRN (Reason: SOB) RF: 0 acetaminophen 325 mg Tablet 650 mg PO Q4-6H PRN (Reason: Pain (Scale Score 1-3)) RF: 0 venlafaxine 75 mg tablet 75 mg PO BID RF: 0 tizanidine 2 mg tablet 2 mg PO DAILY RF: 0 simvastatin 40 mg tablet 40 mg PO BEDTIME RF: 0 famotidine 20 mg tablet 20 mg PO DAILY RF: 0 lactulose 10 gram Packet 30 g PO DAILY PRN (Reason: Constipation) RF: 0 hydrochlorothiazide 25 mg tablet 25 mg PO DAILY RF: 0 metformin 500 mg Tablet Extended Release 24hr 500 mg PO BIDAC RF: 0 cholecalciferol (vitamin D3) [Vitamin D3] 50 mcg (2,000 unit) Tablet 50 mcg PO DAILY RF: 0 Follow up/Referrals: Petros Junior MD [Primary Care Provider] - 1 Week Diet/Activity/Treatments Diet: Carb-consistent/Diabetic, Low-fat, Low-sodium and Low-cholesterol Activity: Continue wheel chair and transfer as tolerated Visit Report/Discharge Packet Instructions: Chronic Venous Insufficiency, Glycosylated Hemoglobin Test, DI for High Blood Pressure, DI for Diabetes Type 2, How to Prevent Falls, DI for Hyperglycemia -- Adult Visit Report Forms: Patient Portal/API, Stroke Signs & Symptoms Discharge Data Primary Care Provider: Petros Junior Attending Provider: Daniel Cortez Admit Date/Time: 10/06/19 18:26 Discharges patient from system. Discharge Date/Time: 10/07/19 16:45 Quality VTE Deep Vein Thrombosis/Pulmonary Embolism Present on Admission: No
== END 2019-10-07 16:45 ==
LOC: ED 14:13 → AC 18:28
PROVIDERS: Admitting Provider Internal Medicine; Emergency Provider Emergency Medicine; Family Provider Family Medicine; PCP Family Medicine; Visit Provider Internal Medicine
DX: E11.65 Type 2 diabetes mellitus with hyperglycemia (principal); R06.02 Shortness of breath; I10 Essential (primary) hypertension; I69.320 Aphasia following cerebral infarction; I69.359 Hemiplegia and hemiparesis following cerebral infarction affecting unspecified side; I69.319 Unspecified symptoms and signs involving cognitive functions following cerebral infarction; Z79.84 Long term (current) use of oral hypoglycemic drugs; E86.0 Dehydration; Z11.59 Encounter for screening for other viral diseases
CPT/HCPCS: 36415; 71045; 80048; 80053; 80076; 82009; 82962; 83036; 83690; 83735; 83880; 84443; 84484; 85025; 85379; 85610; 85730; 87635; 93005; 93306; 93971; 96360; 96361; 96372; 99284; G0378; J1650

== ENCOUNTER 2019-12-30 14:43 | Emergency (ER) | payer MEDICARE, OTHER, SELFPAY ==
[2019-10-06 19:53] VITALS: BMI 34.2
[2019-12-30] VITALS (12 sets, daily range): BP systolic 135–171; BP diastolic 67–79; PULSE 61–90; RESP 12–20; TEMP 36.8; O2SAT 95–99; BMI 33.2
--- NOTE | 2019-12-30 15:21 | DI.RAD.S_ITS ---
PROCEDURE: XR CHEST 1V INDICATIONS: shaking, chills, headache TECHNIQUE: One view of the chest was acquired. COMPARISON: [facility], CR, CHEST 1VW (PORTABLE), 09/01/2013, 15:02. [facility], CR, CHEST 2VW, 08/05/2010, 12:20. [facility], CR, XR CHEST 1V, 10/06/2019, 14:53. FINDINGS: Surgical changes and devices: None. Lungs and pleura: Lungs are clear. No pleural effusions or pneumothorax. Mediastinum: Mediastinal contours appear normal. Heart size is normal. Bones and chest wall: No suspicious bony lesions. Overlying soft tissues appear unremarkable. 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 IMPRESSION: No acute cardiopulmonary disease. Dictated by: Deonte Paul M.D. on 12/30/2019 at 16:55 Approved by: Deonte Paul M.D. on 12/30/2019 at 16:56
--- NOTE | 2019-12-30 15:22 | PC.NURSE ---
patient came into to the ED and son is with him. Son was called by the [facility] and was informed that at 1000 am today his father woke up and was tired and slightly more confused than usual. The patient was also inconsistent. The patient had a stroke and was left aphasic as a result. He was recently diagnosed with diabetes and was given a prescription of metformin. He has been having diarrhea ever since
--- NOTE | 2019-12-30 15:24 | ED.GENADULT ---
HPI - General Adult General Chief complaint: Urogenital-Male Stated complaint: Chills, headache Time Seen by Provider: 12/30/19 15:06 Source: family (son) Mode of arrival: Wheelchair Limitations: language barrier History of Present Illness HPI narrative: This is an 84-year-old male who is brought by his son for chills and not feeling well. Patient has a history of stroke and has difficulty expressing himself verbally he also has right-sided deficits with near paralysis. Patient lives at a skilled facility. His son states he was with him last night and noticed that he seemed chills on and off, he has not had any documented fevers at the facility they have been checking regularly. He seemed to indicate he may have had a little bit of a headache, he has not had any cold cough or congestion, patient expresses no shortness of breath or chest pain. He has not had any vomiting. He has had diarrhea but that has been since he started metformin in the last several months. Patient does have urinary incontinence intermittently for the last 3 months since his . When asked if the patient has pain he expresses no. Patient also is a diabetic and is on insulin as well as metformin, medication for dyslipidemia, Plavix and several other medications. He does not have any prior surgeries that his son is aware of. He is allergic to aspirin and penicillins. Related Data Home Medications Medication Instructions Recorded Confirmed acetaminophen 650 mg PO Q4-6H PRN 10/06/19 10/06/19 albuterol sulfate 0.63 mg INHALATION Q4H PRN 10/06/19 10/06/19 cholecalciferol (vitamin D3) 50 mcg PO DAILY 10/06/19 10/06/19 [Vitamin D3] clopidogrel 75 mg PO DAILY 10/06/19 10/06/19 famotidine 20 mg PO DAILY 10/06/19 10/06/19 hydrochlorothiazide 25 mg PO DAILY 10/06/19 10/06/19 lactulose 30 g PO DAILY PRN 10/06/19 10/06/19 metformin 500 mg PO BIDAC 10/06/19 10/06/19 simvastatin 40 mg PO BEDTIME 10/06/19 10/06/19 tizanidine 2 mg PO DAILY 10/06/19 10/06/19 venlafaxine 75 mg PO BID 10/06/19 10/06/19 Previous Rx's Medication Instructions Recorded insulin degludec [Tresiba 15 unit SUBCUT BEDTIME #15 ml 10/07/19 FlexTouch U-100] Allergies Allergy/AdvReac Type Severity Reaction Status Date / Time aspirin Allergy Verified 10/06/19 13:25 Penicillins Allergy Verified 10/06/19 13:25 Review of Systems Review of Systems ROS Unobtainable: Unobtainable due to medical condition Patient History Medical History (Updated 12/30/19 @ 18:43 by Ree Marie DO) CVA (cerebral vascular accident) (Acute) Social History household members: other Smoking Status: Former smoker alcohol intake: never Smoking Status: Former smoker Substance Use Type: does not use Exam Narrative Exam Narrative: GEN: well nourished, well appearing male, alert, patient appears to be in no distress. HEENT: Atraumatic, pupils are equal round reactive to light, extraocular movements are intact, nares are clear, TMs are clear with no fluid, there is no conjunctival pallor. Throat is clear without any exudates, erythema, tonsillar enlargement or uvular deviation, no meningeal signs. HEART: Regular rate and rhythm without murmur, clicks, rubs. LUNGS:Lungs clear to auscultation, no wheezes, rales, crackles, chest moves symmetrically, no tachypnea, no accessory muscle use. ABD:bowel sounds normal, soft, non-tender, nondistended, no guarding, rebound, rigidity, no masses noted, no hepatosplenomegaly :No CVA tenderness MSCL: Non-tender, patient has a brace on the right leg. Decreased movement on the right side. NEURO:CN 2-12 intact SKIN: No rashes, erythema or other skin changes noted. Initial Vital Signs Initial Vital Signs: Vital Signs Temperature 98.2 F 12/30/19 15:11 Pulse Rate 63 12/30/19 15:11 Respiratory Rate 14 12/30/19 15:11 Blood Pressure 159/78 H 12/30/19 15:11 Pulse Oximetry 98 12/30/19 15:11 Course Orders Ordered: Discontinued Medications Sodium Chloride (Normal Saline 0.9%) 1,000 mls @ 125 mls/hr IV CONT LANDY Last Infusion: 12/30/19 16:55 Dose: 500 mls/hr Documented by: Admin: 12/30/19 15:57 Dose: 125 mls/hr Documented by: BOGDAN Sodium Chloride (Normal Saline 0.9%) 1,000 mls @ 500 mls/hr IV BOLUS ONE Stop: 12/30/19 18:52 Last Admin: 12/30/19 16:56 Dose: Not Given Documented by: BOGDAN Reevaluation(s) Reevaluation #1: Patient is feeling improved. He has had appropriate vitals besides hypertension in department, lactate is trending down. Patient unable to give ua and after discussion with son and patient they both prefer to return to facility knowing that UA is needed to rule out UTI. Plan to d/c home with plan for UA as outpatient. Time: 18:44 Vital Signs Vital signs: Vital Signs - 8 hr 12/30/19 15:11 12/30/19 15:23 12/30/19 15:30 Temperature 98.2 F Pulse Rate 63 67 63 Respiratory Rate 14 12 12 Blood Pressure 159/78 H 135/70 Pulse Oximetry 98 97 97 12/30/19 16:00 12/30/19 16:30 12/30/19 17:00 Temperature Pulse Rate 66 66 62 Respiratory Rate 16 13 12 Blood Pressure 142/76 H 154/79 H Pulse Oximetry 97 97 97 12/30/19 17:01 12/30/19 17:30 12/30/19 17:31 Temperature Pulse Rate 61 65 66 Respiratory Rate 12 19 19 Blood Pressure 171/67 H 145/71 H Pulse Oximetry 96 98 97 12/30/19 18:00 12/30/19 18:01 Temperature Pulse Rate 61 Respiratory Rate 17 Blood Pressure 161/71 H Pulse Oximetry 99 Medical Decision Making Lab Data Lab results reviewed: Yes I reviewed the patient's lab results. Result diagrams: 12/30/19 15:09 12/30/19 15:09 Labs: Lab Results 12/30/19 12/30/19 12/30/19 Range/Units 15:09 15:09 15:09 WBC 8.4 (4.5-11.0) X10^3/uL RBC 4.21 L (4.5-5.9) X10^6/uL Hgb 13.2 L (13.5-17.5) g/dL Hct 37.6 L (41-53) % MCV 89.3 (80-100) fL MCH 31.5 (26-34) PG MCHC 35.2 (30-36) % RDW 13.8 (11.6-14.8) % Plt Count 220 (150-400) X10^3/uL Neut % (Auto) 60.0 (50-75) % Lymph % (Auto) 26.7 (25-40) % Daniels % (Auto) 7.2 (3-14) % Eos % (Auto) 5.4 H (2-4) % Baso % (Auto) 0.7 (0-2) % Neut # (Auto) 5000 (1141-0880) /uL Lymph # (Auto) 2200 (6985-8077) /uL Daniels # (Auto) 600 (0-900) /uL Eos # (Auto) 400 (0-450) /uL Baso # (Auto) 100 (0-100) /uL PT 11.8 (10.1-12.7) SECONDS INR 1.0 (0.9-1.3) APTT 32 D (26.4-36.2) SECONDS Sodium 138 (137-145) mmol/L Potassium 3.7 (3.4-5.1) mmol/L Chloride 101 (98-107) mmol/L Carbon Dioxide 30 (22-32) mmol/L BUN 24 H (9-20) mg/dL Creatinine 1.12 (0.66-1.25) mg/dL Estimated GFR > 60.0 (>60) mL/min BUN/Creatinine Ratio 21.4 (6-22) Glucose 139 H (80-110) mg/dL Lactate (0.7-2.1) mmol/L Calcium 9.0 (8.4-10.2) mg/dL Total Bilirubin 0.7 (0.2-1.3) mg/dL AST 29 (17-59) IU/L ALT 23 (<50) IU/L Alkaline Phosphatase 49 (38-126) U/L Total Creatine Kinase (55-170) U/L CK-MB (CK-2) CK-MB (CK-2) Rel Index Troponin I (0.01-0.034) ng/mL NT-Pro-B Natriuret Pep (<450) pg/mL Total Protein 7.7 (6.3-8.2) g/dL Albumin 4.2 (3.5-5.0) g/dL Globulin 3.5 (1.7-4.1) g/dL Albumin/Globulin Ratio 1.2 (1.0-2.8) Procalcitonin (<0.5) ng/mL COVID-19 PCR (Negative) 12/30/19 12/30/19 12/30/19 Range/Units 15:09 15:09 15:09 WBC (4.5-11.0) X10^3/uL RBC (4.5-5.9) X10^6/uL Hgb (13.5-17.5) g/dL Hct (41-53) % MCV (80-100) fL MCH (26-34) PG MCHC (30-36) % RDW (11.6-14.8) % Plt Count (150-400) X10^3/uL Neut % (Auto) (50-75) % Lymph % (Auto) (25-40) % Daniels % (Auto) (3-14) % Eos % (Auto) (2-4) % Baso % (Auto) (0-2) % Neut # (Auto) (0141-7621) /uL Lymph # (Auto) (8301-0256) /uL Daniels # (Auto) (0-900) /uL Eos # (Auto) (0-450) /uL Baso # (Auto) (0-100) /uL PT (10.1-12.7) SECONDS INR (0.9-1.3) APTT (26.4-36.2) SECONDS Sodium (137-145) mmol/L Potassium (3.4-5.1) mmol/L Chloride (98-107) mmol/L Carbon Dioxide (22-32) mmol/L BUN (9-20) mg/dL Creatinine (0.66-1.25) mg/dL Estimated GFR (>60) mL/min BUN/Creatinine Ratio (6-22) Glucose (80-110) mg/dL Lactate 2.3 H (0.7-2.1) mmol/L Calcium (8.4-10.2) mg/dL Total Bilirubin (0.2-1.3) mg/dL AST (17-59) IU/L ALT (<50) IU/L Alkaline Phosphatase (38-126) U/L Total Creatine Kinase 66 (55-170) U/L CK-MB (CK-2) TNP CK-MB (CK-2) Rel Index TNP Troponin I < 0.012 (0.01-0.034) ng/mL NT-Pro-B Natriuret Pep 265 (<450) pg/mL Total Protein (6.3-8.2) g/dL Albumin (3.5-5.0) g/dL Globulin (1.7-4.1) g/dL Albumin/Globulin Ratio (1.0-2.8) Procalcitonin < 0.05 (<0.5) ng/mL COVID-19 PCR (Negative) 12/30/19 12/30/19 Range/Units 15:35 17:55 WBC (4.5-11.0) X10^3/uL RBC (4.5-5.9) X10^6/uL Hgb (13.5-17.5) g/dL Hct (41-53) % MCV (80-100) fL MCH (26-34) PG MCHC (30-36) % RDW (11.6-14.8) % Plt Count (150-400) X10^3/uL Neut % (Auto) (50-75) % Lymph % (Auto) (25-40) % Daniels % (Auto) (3-14) % Eos % (Auto) (2-4) % Baso % (Auto) (0-2) % Neut # (Auto) (7836-9129) /uL Lymph # (Auto) (4532-4016) /uL Daniels # (Auto) (0-900) /uL Eos # (Auto) (0-450) /uL Baso # (Auto) (0-100) /uL PT (10.1-12.7) SECONDS INR (0.9-1.3) APTT (26.4-36.2) SECONDS Sodium (137-145) mmol/L Potassium (3.4-5.1) mmol/L Chloride (98-107) mmol/L Carbon Dioxide (22-32) mmol/L BUN (9-20) mg/dL Creatinine (0.66-1.25) mg/dL Estimated GFR (>60) mL/min BUN/Creatinine Ratio (6-22) Glucose (80-110) mg/dL Lactate 1.8 (0.7-2.1) mmol/L Calcium (8.4-10.2) mg/dL Total Bilirubin (0.2-1.3) mg/dL AST (17-59) IU/L ALT (<50) IU/L Alkaline Phosphatase (38-126) U/L Total Creatine Kinase (55-170) U/L CK-MB (CK-2) CK-MB (CK-2) Rel Index Troponin I (0.01-0.034) ng/mL NT-Pro-B Natriuret Pep (<450) pg/mL Total Protein (6.3-8.2) g/dL Albumin (3.5-5.0) g/dL Globulin (1.7-4.1) g/dL Albumin/Globulin Ratio (1.0-2.8) Procalcitonin (<0.5) ng/mL COVID-19 PCR Negative (Negative) Imaging Data Chest x-ray: Radiologist's Impression: [address] [address] XRay Report Signed Patient: Dhruv Hernandez [facility]#: [id number] : 8Acct:[id number] Age/Sex: 84 / MDate of Service: 12/30/19 Loc: ED Accession Number: [id number] Procedure: XR chest 1V Ordering Provider: Ree Marie D.O. PROCEDURE: XR CHEST 1V INDICATIONS: shaking, chills, headache TECHNIQUE: One view of the chest was acquired. COMPARISON: [facility], CR, CHEST 1VW (PORTABLE), 09/01/2013, 15:02. [facility], CR, CHEST 2VW, 08/05/2010, 12:20. [facility], , XR CHEST 1V, 10/06/2019, 14:53. FINDINGS: Surgical changes and devices: None. Lungs and pleura: Lungs are clear. No pleural effusions or pneumothorax. Mediastinum: Mediastinal contours appear normal. Heart size is normal. Bones and chest wall: No suspicious bony lesions. Overlying soft tissues appear unremarkable. 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 IMPRESSION: No acute cardiopulmonary disease. Dictated by: Deonte Paul M.D. on 12/30/2019 at 16:55 Approved by: Deonte Paul M.D. on 12/30/2019 at 16:56 ECG Data Attestation: I personally reviewed and interpreted this ECG as follows: Interpretation: Sinus rhythm occasional supraventricular complex, rate of 69, pr 192, qrs of 88, qtc 429. No ST elevation, nonspecific. MDM Narrative Medical decision making narrative: Patient comes in with and nonspecific symptoms. Patient's labs show that is at baseline, lactate that is initially 2.3 but on repeat is 1.8 with a BUN of 24 and otherwise normal electrolytes and renal function. LFTs, troponin and BNP as well as procalcitonin are normal, covered is negative and patient's EKG does not show acute findings and chest x-ray is negative. Currently awaiting a urinalysis to evaluate for infection, patient has tried multiple times and they have not been able to obtain a catheter secondary to patient habitus. Patient's son and I discussed they are welcome to stay longer to try and get a sample but they prefer to return to there facility and obtain a sample. Discharge Plan Departure Patient Disposition: Home Clinical Impression: Chills Discharge Date/Time: 12/30/19 19:04 Activity Restrictions/Additional Instructions: Follow-up with your physician for urinalysis as we were not able to obtain one today, no other clear source of infection was found today. Patient may continue all other home medications as prescribed Return to the ER for fevers greater 100.4 F, new alterations in mental status, severe headaches, new chest pain or shortness of breath, difficulty breathing, persistent vomiting, black or bloody stools, inability to urinate or other new or concerning symptoms Prescriptions: No Action clopidogrel 75 mg tablet 75 mg PO DAILY RF: 0 albuterol sulfate 0.63 mg/3 mL Solution For Nebulization 0.63 mg INHALATION Q4H PRN (Reason: SOB) RF: 0 acetaminophen 325 mg Tablet 650 mg PO Q4-6H PRN (Reason: Pain (Scale Score 1-3)) RF: 0 venlafaxine 75 mg tablet 75 mg PO BID RF: 0 tizanidine 2 mg tablet 2 mg PO DAILY RF: 0 simvastatin 40 mg tablet 40 mg PO BEDTIME RF: 0 famotidine 20 mg tablet 20 mg PO DAILY RF: 0 lactulose 10 gram Packet 30 g PO DAILY PRN (Reason: Constipation) RF: 0 hydrochlorothiazide 25 mg tablet 25 mg PO DAILY RF: 0 metformin 500 mg Tablet Extended Release 24hr 500 mg PO BIDAC RF: 0 cholecalciferol (vitamin D3) [Vitamin D3] 50 mcg (2,000 unit) Tablet 50 mcg PO DAILY RF: 0 Tresiba FlexTouch U-100 100 unit/mL (3 mL) insulin pen 15 unit SUBCUT BEDTIME Qty: 15 RF: 0 Referrals: Petros Junior MD [Primary Care Provider] -
[2019-12-30 15:31] LABS: Prothrombin Time 11.8 SECONDS (10.1-12.7)
[2019-12-30 15:33] LABS: Add Manual Diff / Slide Review NO; Basophils Absolute Auto 100 /uL (0-100); Basophils Percent Auto 0.7 % (0-2); Eosinophils Absolute Auto 400 /uL (0-450); Eosinophils Percent Auto 5.4 % (2-4); Hematocrit 37.6 % (41-53); Hemoglobin 13.2 g/dL (13.5-17.5); Lymphocytes Absolute Auto 2200 /uL (1100-4500); Lymphocytes Percent Auto 26.7 % (25-40); Mean Corpuscular HGB Conc 35.2 % (30-36); Mean Corpuscular Hemoglobin 31.5 PG (26-34); Mean Corpuscular Volume 89.3 fL (80-100); Monocytes Absolute Auto 600 /uL (0-900); Monocytes Percent Auto 7.2 % (3-14); Neutrophils Absolute Auto 5000 /uL (1500-7000); Platelet Count 220 X10^3/uL (150-400); Red Blood Cell Count 4.21 X10^6/uL (4.5-5.9); Red Cell Distribution Width 13.8 % (11.6-14.8); White Blood Cell Count 8.4 X10^3/uL (4.5-11.0)
[2019-12-30 15:34] LABS: PTT Partial Thromboplastin Tim 32 SECONDS (26.4-36.2)
[2019-12-30 15:35] LABS: Lactate (Lactic Acid) 2.3 mmol/L (0.7-2.1)
[2019-12-30 15:36] LABS: Alanine Aminotransferase 23 IU/L (<50); Albumin 4.2 g/dL (3.5-5.0); Albumin Globulin Ratio 1.2 (1.0-2.8); Alkaline Phosphatase 49 U/L (38-126); Aspartate Aminotransferase 29 IU/L (17-59); BUN Creatinine Ratio 21.4 (6-22); Bilirubin Total 0.7 mg/dL (0.2-1.3); Blood Urea Nitrogen 24 mg/dL (9-20); Carbon Dioxide 30 mmol/L (22-32); Chloride 101 mmol/L (98-107); Estimated Glomerular Filt Rate > 60.0 mL/min (>60); Globulin 3.5 g/dL (1.7-4.1); Glucose 139 mg/dL (80-110); HEMOLYSIS 48 (0-50); Potassium 3.7 mmol/L (3.4-5.1); Sodium 138 mmol/L (137-145); Total Protein 7.7 g/dL (6.3-8.2)
[2019-12-30 15:45] LABS: Creatine Kinase 66 U/L (55-170)
[2019-12-30] MEDS: SODIUM CHLORIDE 0.9% 1,000 ML 125 ML IV (15:57)
[2019-12-30 15:59] LABS: NT-proBNP (BNP-Adult 18+) 265 pg/mL (<450); Troponin I < 0.012 ng/mL (0.01-0.034)
[2019-12-30 16:23] LABS: COVID19 -Nasal RAPID Negative (Negative)
[2019-12-30 17:26] LABS: Reflexed Lactate in 2 Hours Y
[2019-12-30 17:43] LABS: Procalcitonin < 0.05 ng/mL (<0.5)
[2019-12-30 18:17] LABS: Lactate 2HR (Lactic Acid Rflx) 1.8 mmol/L (0.7-2.1)
== END 2019-12-30 19:04 | disposition home or self-care (01) ==
PROVIDERS: Emergency Provider Emergency Medicine; Family Provider Family Medicine; PCP Family Medicine
DX: R68.83 Chills (without fever) (principal); R51.9 Headache, unspecified; Z86.73 Personal history of transient ischemic attack (TIA), and cerebral infarction without residual deficits; R07.9 Chest pain, unspecified
CPT/HCPCS: 36415; 71045; 80053; 82550; 83605; 83880; 84145; 84484; 85025; 85610; 85730; 87040; 87635; 93005; 93010; 96360; 99284

== ENCOUNTER 2023-08-11 20:08 | Inpatient (IN) | payer MEDICARE, OTHER, SELFPAY ==
[2019-10-06 19:53] VITALS: BMI 34.2
[2023-08-11] VITALS (8 sets, daily range): BP systolic 141–183; BP diastolic 69–80; PULSE 65–82; RESP 18–27; TEMP 36.3; O2SAT 94–98; BMI 33.2
--- NOTE | 2023-08-11 20:22 | DI.RAD.S_ITS ---
PROCEDURE: XR HIP W PEL IF DONE RT 2V INDICATIONS: GLF, thinners, pain TECHNIQUE: AP pelvis with lateral view(s) of the right hip(s). COMPARISON: None. FINDINGS: Bones: No acute fracture or dislocation. Pelvic ring appears intact. No suspicious bony lesions. There is mild asymmetric bilateral joint space narrowing and osteophytosis. Soft tissues: The visualized bowel gas pattern is normal. No suspicious soft tissue calcifications. IMPRESSION: No acute radiographic abnormality. Mild bilateral degenerative changes of the hip. If there is high clinical concern for internal derangement, recommend further evaluation with CT or MRI. Approved by: Diane Allison M.D.,Ph.D. on 08/11/2023 at 21:33
--- NOTE | 2023-08-11 21:46 | ED_ITS ---
HPI - Fall General Chief Complaint: Fall Stated Complaint: GLF Time Seen by Provider: 08/11/23 21:43 Source: patient and family Mode of arrival: Wheelchair History of Present Illness HPI Narrative: Patient is an 87-year-old male. Has a history of a CVA with right-sided deficits. He does use a walker/cane to ambulate but is able to put pressure on his lower extremities. He has a difficult time expressing himself given the history of the stroke. He was also an insulin-dependent diabetic. Not on anticoagulation. He is here with family. He sustained a fall earlier today where he landed on his right hip. There was no other apparent discomfort. Did not hit his head. No loss of consciousness. Patient arrived in a wheelchair and has been unable to put pressure on his right hip since the fall. Related Data Home Medications Medication Instructions Recorded Confirmed acetaminophen 325 mg tablet 650 mg PO Q4-6H PRN Pain (Scale 10/06/19 10/06/19 Score 1-3) albuterol sulfate 0.63 mg/3 mL 0.63 mg inhalation Q4H PRN SOB 10/06/19 10/06/19 solution for nebulization cholecalciferol (vitamin D3) 50 50 mcg PO DAILY 10/06/19 10/06/19 mcg (2,000 unit) tablet (Vitamin D3) clopidogrel 75 mg tablet 75 mg PO DAILY 10/06/19 10/06/19 famotidine 20 mg tablet 20 mg PO DAILY 10/06/19 10/06/19 hydrochlorothiazide 25 mg tablet 25 mg PO DAILY 10/06/19 10/06/19 lactulose 10 gram oral packet 30 g PO DAILY PRN Constipation 10/06/19 10/06/19 metformin 500 mg tablet,extended 500 mg PO BIDAC 10/06/19 10/06/19 release 24hr (osmotic) simvastatin 40 mg tablet 40 mg PO BEDTIME 10/06/19 10/06/19 tizanidine 2 mg tablet 2 mg PO DAILY 10/06/19 10/06/19 venlafaxine 75 mg tablet 75 mg PO BID 10/06/19 10/06/19 Previous Rx's Medication Instructions Recorded insulin degludec 100 unit/mL (3 15 unit (0.15 mL) SUBCUT BEDTIME 10/07/19 mL) subcutaneous pen (Tresiba #15 mL FlexTouch U-100 insulin) Allergies Allergy/AdvReac Type Severity Reaction Status Date / Time aspirin Allergy Verified 08/11/23 20:17 Penicillins Allergy Verified 08/11/23 20:17 Review of Systems Constitutional Constitutional: Reports system reviewed and no additional complaints, except as documented Musculoskeletal Musculoskeletal: Reports system reviewed and no additional complaints, except as documented Integumentary/Breasts Skin/Breast: Reports system reviewed and no additional complaints, except as documented Neurologic Neurologic: Reports system reviewed and no additional complaints, except as documented Hematologic/Lymphatic On Anticoagulants: No Patient History Medical History CVA (cerebral vascular accident) Social History household members: other Smoking Status: Former smoker alcohol intake: never Smoking Status: Former smoker Substance Use Type: does not use Exam Initial Vital Signs Initial Vital Signs: Vital Signs Temperature 97.3 F L 08/11/23 20:17 Pulse Rate 65 08/11/23 20:17 Respiratory Rate 18 08/11/23 20:17 Blood Pressure 158/74 H 08/11/23 20:17 Pulse Oximetry 98 08/11/23 20:17 Oxygen Delivery Method Room Air 08/11/23 20:17 HENMT Head: normal to inspection and normocephalic Resp Effort & Inspection: normal respiratory effort Auscultation: clear to auscultation bilaterally Cardio Rate: regular rate Rhythm: regular rhythm GI Inspection: normal to inspection and non-distended Neuro Other: Baseline neurologic status per his family at bedside. Extrem Other: Patient does have contractures of his right upper extremity but this is baseline. He does have a posterior brace on his right ankle which is baseline. Left upper extremity left lower extremity are unremarkable. Course Orders Ordered: ED Orders 08/11/23 20:22 XR hip w pel if done RT 2V Stat 08/11/23 21:47 CT pelvis wo con Stat 08/12/23 00:35 Consult to Orthopedic Surgery Stat Discontinued Medications Hydrocodone Bitart/Acetaminophen (Hydrocodone/Acet 5/325 Tablet) 1 tab PO NOW ONE Stop: 08/11/23 22:45 Last Admin: 08/11/23 22:51 Dose: 1 tab Documented By: SB Vital Signs Vital signs: Vital Signs - 8 hr 08/11/23 20:17 08/11/23 21:35 08/11/23 21:36 Temperature 97.3 F L Pulse Rate 65 82 Respiratory Rate 18 Blood Pressure 158/74 H 183/80 H Pulse Oximetry 98 95 Oxygen Delivery Method Room Air 08/11/23 21:36 08/11/23 22:00 08/11/23 22:30 Temperature Pulse Rate 81 77 74 Respiratory Rate 23 27 H Blood Pressure Pulse Oximetry 95 96 96 Oxygen Delivery Method 08/11/23 22:58 08/11/23 22:58 08/11/23 23:00 Temperature Pulse Rate 81 Respiratory Rate Blood Pressure 153/74 H 155/75 H Pulse Oximetry 95 Oxygen Delivery Method 08/11/23 23:00 08/11/23 23:30 08/11/23 23:30 Temperature Pulse Rate 77 75 Respiratory Rate 18 Blood Pressure 141/69 H Pulse Oximetry 96 94 Oxygen Delivery Method 08/12/23 00:00 08/12/23 00:00 Temperature Pulse Rate 71 Respiratory Rate 19 Blood Pressure 147/70 H Pulse Oximetry 95 Oxygen Delivery Method MDM - Fall Imaging Data Extremity x-ray #1: Radiologist's Impression: PROCEDURE: XR HIP W PEL IF DONE RT 2V INDICATIONS: GLF, thinners, pain TECHNIQUE: AP pelvis with lateral view(s) of the right hip(s). COMPARISON: None. FINDINGS: Bones: No acute fracture or dislocation. Pelvic ring appears intact. No suspicious bony lesions. There is mild asymmetric bilateral joint space narrowing and osteophytosis. Soft tissues: The visualized bowel gas pattern is normal. No suspicious soft tissue calcifications. IMPRESSION: No acute radiographic abnormality. Mild bilateral degenerative changes of the hip. If there is high clinical concern for internal derangement, recommend further evaluation with CT or MRI. CT scan - abdomen/pelvis: Radiologist's Impression: PROCEDURE: CT PEL WO CON INDICATIONS: R hip pain after fall TECHNIQUE: Noncontrast 3 mm axial sections acquired through the bony pelvis, with coronal and sagittal reformatting. [facility], 08/11/2023, 20:21. FINDINGS: Image quality: Excellent. Bones: Nondisplaced intra-articular fracture is seen involving the right acetabular rim superiorly. No definite involvement of the anterior or posterior columns. Proximal femurs are intact. No additional pelvic fracture is seen. Degenerative changes are seen in the hips and spine. Soft tissues: Small right hip effusion. The musculature surrounding the pelvis is symmetric. No acute abnormalities seen in the pelvic soft tissues. IMPRESSION: Nondisplaced intra-articular fracture of the superior right acetabular rim. MDM Narrative Medical decision making narrative: Initial x-ray shows no signs of a fracture however the patient could not put any pressure on his right lower extremity. A CT scan was ordered which does show an acetabular fracture. I did discuss the case with Dr. Sarabia on-call for Orthopedic surgery who recommended that I discuss the case with the orthopedic trauma service at [facility]. I then discussed the case with Dr. Latham with the Orthopedic Service who stated that currently this is a nonsurgical fracture. He recommended toe-touch weight-bearing or these protected weight-bearing to the patient's right lower extremity. He stated that patient should be seen by Physical therapy. Ambulated approximately 20 yd and then repeat x-rays to make sure that there was no displacement of the fracture. I then discussed the case with Dr. Sarabia with Orthopedic surgery once again who asked that the patient be admitted to the medicine service that she would consult. I then discussed the case with Dr. Mendoza hospitalist on-call who will admit. I did discuss the need for admission with the patient and his family. Family expressed understanding and agreement with plan. Discharge Plan Departure Patient Disposition: Admitted as Observation Clinical Impression: Acetabulum fracture, right Admit Date/Time: 08/12/23 00:45 Admit Provider: Jordi Benson
[2023-08-11] MEDS: HYDROCODONE/ACET 5/325 TABLET 1 TAB PO (22:51)
[2023-08-12] VITALS (9 sets, daily range): BP systolic 114–147; BP diastolic 56–71; PULSE 58–71; RESP 16–20; TEMP 36.2–36.9; O2SAT 93–96; BMI 33.2
--- NOTE | 2023-08-12 01:45 | PM.HP.1 ---
History of Present Illness History of Present Illness Date Patient Seen: 08/12/23 Time Patient Seen: 02:00 Chief complaint: GLF Narrative: 87 y/o with PMH of chronic right hemiparesis and expressive aphasia, from past Lt MCA CVA, who ambulates with a walker and cane, sustained ground level fall and landed on right hip. Xrays non-revealing but CT showing fracture of superior rim of Rt acetabulum. Orthopedic oracle security consultant recommended non-operative management, WBTT, pain management, PT, OT. Patient aphasic on admission, w/o family members that left earlier and Hx was practically unobtainable. [facility] Medical History (Updated 08/12/23 @ 03:44 by Jordi Mendoza MD) HTN (hypertension) Depression GERD (gastroesophageal reflux disease) History of stroke Hemiparesis affecting right side as late effect of cerebrovascular accident Expressive aphasia CVA (cerebral vascular accident) Social History household members: other Smoking Status: Former smoker alcohol intake: never Meds Home Medications and Allergies Home Medications Medication Instructions Recorded Confirmed Type acetaminophen 325 mg tablet 650 mg PO Q4-6H PRN Pain (Scale 10/06/19 10/06/19 History Score 1-3) albuterol sulfate 0.63 mg/3 mL 0.63 mg inhalation Q4H PRN SOB 10/06/19 10/06/19 History solution for nebulization cholecalciferol (vitamin D3) 50 50 mcg PO DAILY 10/06/19 08/12/23 History mcg (2,000 unit) tablet (Vitamin D3) clopidogrel 75 mg tablet 75 mg PO DAILY 10/06/19 08/12/23 History famotidine 20 mg tablet 20 mg PO DAILY 10/06/19 10/06/19 History hydrochlorothiazide 25 mg tablet 25 mg PO DAILY 10/06/19 10/06/19 History lactulose 10 gram oral packet 10 g PO DAILY PRN Constipation 10/06/19 08/12/23 History metformin 500 mg tablet,extended 500 mg PO BIDAC 10/06/19 10/06/19 History release 24hr (osmotic) simvastatin 40 mg tablet 40 mg PO BEDTIME 10/06/19 08/12/23 History tizanidine 2 mg tablet 2 mg PO BEDTIME 10/06/19 08/12/23 History venlafaxine 75 mg tablet 75 mg PO BID 10/06/19 08/12/23 History insulin degludec 100 unit/mL (3 15 unit (0.15 mL) SUBCUT BEDTIME 10/07/19 Rx mL) subcutaneous pen (Tresiba #15 mL FlexTouch U-100 insulin) Allergies Allergy/AdvReac Type Severity Reaction Status Date / Time aspirin Allergy Verified 08/11/23 20:17 Penicillins Allergy Verified 08/11/23 20:17 Review of Systems Review of Systems Narrative: Unobtainable due to aphasia Exam Vital Signs (past 8 hours): - 08/11/23 20:17 08/11/23 21:35 08/11/23 21:36 Temperature 97.3 F L Pulse Rate 65 82 Respiratory Rate 18 Blood Pressure 158/74 H 183/80 H Pulse Oximetry 98 95 Oxygen Delivery Method Room Air 08/11/23 21:36 08/11/23 22:00 08/11/23 22:30 Temperature Pulse Rate 81 77 74 Respiratory Rate 23 27 H Blood Pressure Pulse Oximetry 95 96 96 Oxygen Delivery Method 08/11/23 22:58 08/11/23 22:58 08/11/23 23:00 Temperature Pulse Rate 81 Respiratory Rate Blood Pressure 153/74 H 155/75 H Pulse Oximetry 95 Oxygen Delivery Method 08/11/23 23:00 08/11/23 23:30 08/11/23 23:30 Temperature Pulse Rate 77 75 Respiratory Rate 18 Blood Pressure 141/69 H Pulse Oximetry 96 94 Oxygen Delivery Method 08/12/23 00:00 08/12/23 00:00 08/12/23 00:30 Temperature Pulse Rate 71 70 Respiratory Rate 19 16 Blood Pressure 147/70 H Pulse Oximetry 95 94 Oxygen Delivery Method 08/12/23 00:31 08/12/23 00:31 08/12/23 01:00 Temperature Pulse Rate 71 68 Respiratory Rate 18 20 Blood Pressure 145/68 H Pulse Oximetry 94 93 Oxygen Delivery Method 08/12/23 01:01 08/12/23 01:01 Temperature Pulse Rate 67 Respiratory Rate 19 Blood Pressure 135/64 Pulse Oximetry 93 Oxygen Delivery Method Room Air Oxygen Delivery Method Room Air Narrative Exam Narrative: laying in bed in no distress HENMT Other: normocephalic Resp Other: normal respiratory effort Cardio Other: RRR GI Other: abdomen not distended Skin Other: w/o rashes Extrem Other: w/o swelling pain with Rt hip weightbearing and ROMs Psych Other: appropriate mood Assessment & Plan Assessment and plan (1) Acetabulum fracture, right: Status: Acute (2) Ground-level fall: Status: Acute (3) Impaired mobility and ADLs: Status: Acute (4) History of stroke: Status: Acute (5) Expressive aphasia: Status: Acute (6) Hemiparesis affecting right side as late effect of cerebrovascular accident: Status: Acute (7) HTN (hypertension): Status: Acute (8) GERD (gastroesophageal reflux disease): Status: Acute (9) Depression: Status: Acute Assessment & Plan narrative: Rt Acetabulum Fracture - due to GLF on right hip - small, superior rim. Orthopedist recommended WBTT and repeating images after he is able to walk at least short distance with PT - pain management - impaired mobility at baseline from old stroke, now worsened Hx of Lt MCA / chronic Rt HP and expressive aphasia - Plavix, statin, BP management - his left side is strong, hopefuly enough to compensate for right leg toe-touch WB HTN - HCTZ 25 mg daily DM - IDT2, Lantus, SS, CCD - GERD - Pepcid 20 mg daily Depression - Effexor 75 mg bid Constipation - laxatives DVT prophylaxis - Lovenox
[2023-08-12] MEDS: METFORMIN XR 500 MG TABLET PO ×2 (06:27→16:13)
--- NOTE | 2023-08-12 07:10 | PM.CN ---
History of Present Illness Consult details Date Patient Seen: 08/12/23 Time Patient Seen: 07:10 Chief complaint: GLF Reason for consult: r acetabulum fx Requesting provider: Adarsh Duff Narrative: 87 y/o with PMH of chronic right hemiparesis and expressive aphasia, from past Lt MCA CVA, who ambulates with a walker and cane, sustained ground level fall and landed on right hip. After fall patient was unable to weightbear and was brought to [facility]. CT showing nondisplaced fracture of superior rim of Rt acetabulum--this does go through the weight-bearing dome.--this was also discussed with the Orthopedic Trauma at [facility] and the patient has been recommended for non operative treatment. Was admitted for physical therapy occupational therapy, pain management and placement. Patient aphasic on admission, w/o family members that left earlier and Hx obtained from the chart. Patient is able to answer simple ?yeah/nah? to some questions. Endorses hip pain. Denies other pain. Meds Home Medications and Allergies Home Medications Medication Instructions Recorded Confirmed Type acetaminophen 325 mg tablet 650 mg PO Q4-6H PRN Pain (Scale 10/06/19 10/06/19 History Score 1-3) albuterol sulfate 0.63 mg/3 mL 0.63 mg inhalation Q4H PRN SOB 10/06/19 10/06/19 History solution for nebulization cholecalciferol (vitamin D3) 50 50 mcg PO DAILY 10/06/19 08/12/23 History mcg (2,000 unit) tablet (Vitamin D3) clopidogrel 75 mg tablet 75 mg PO DAILY 10/06/19 08/12/23 History famotidine 20 mg tablet 20 mg PO DAILY 10/06/19 10/06/19 History hydrochlorothiazide 25 mg tablet 25 mg PO DAILY 10/06/19 10/06/19 History lactulose 10 gram oral packet 10 g PO DAILY PRN Constipation 10/06/19 08/12/23 History metformin 500 mg tablet,extended 500 mg PO BIDAC 10/06/19 10/06/19 History release 24hr (osmotic) simvastatin 40 mg tablet 40 mg PO BEDTIME 10/06/19 08/12/23 History tizanidine 2 mg tablet 2 mg PO BEDTIME 10/06/19 08/12/23 History venlafaxine 75 mg tablet 75 mg PO BID 10/06/19 08/12/23 History insulin degludec 100 unit/mL (3 15 unit (0.15 mL) SUBCUT BEDTIME 10/07/19 Rx mL) subcutaneous pen (Tresiba #15 mL FlexTouch U-100 insulin) Allergies Allergy/AdvReac Type Severity Reaction Status Date / Time aspirin Allergy Verified 08/11/23 20:17 Penicillins Allergy Verified 08/11/23 20:17 Review of Systems Review of Systems Narrative: Unobtainable due to aphasia Exam Vital Signs (past 8 hours): - 08/11/23 23:30 08/11/23 23:30 08/12/23 00:00 Temperature Pulse Rate 75 71 Respiratory Rate 18 19 Blood Pressure 141/69 H Pulse Oximetry 94 95 Oxygen Delivery Method Oxygen Flow Rate 08/12/23 00:00 08/12/23 00:30 08/12/23 00:31 Temperature Pulse Rate 70 71 Respiratory Rate 16 18 Blood Pressure 147/70 H Pulse Oximetry 94 94 Oxygen Delivery Method Oxygen Flow Rate 08/12/23 00:31 08/12/23 01:00 08/12/23 01:01 Temperature Pulse Rate 68 Respiratory Rate 20 Blood Pressure 145/68 H 135/64 Pulse Oximetry 93 Oxygen Delivery Method Oxygen Flow Rate 08/12/23 01:01 08/12/23 01:29 08/12/23 01:30 Temperature 97.1 F L Pulse Rate 67 63 Respiratory Rate 19 16 Blood Pressure 119/60 Pulse Oximetry 93 95 Oxygen Delivery Method Room Air Room Air Oxygen Flow Rate 0 Oxygen Delivery Method Room Air Oxygen Flow Rate 0 Narrative Exam Narrative: Lying in bed. Predominantly aphasic answers with a ?yes? to most simple questions No acute distress Hemiparesis of right side no active motion of right upper extremity, contractures present. Right lower extremity no active motion of dorsiflexion or plantar flexion. There has an equinus contracture. He has AFO that is sitting at bedside. No swelling or pain around the knee and thigh with palpation. Endorses pain around the hip. No visible bruises or wounds. Left lower extremity demonstrates active dorsiflexion and plantar flexion. No tenderness to palpation. No gross deformities. Left upper extremity demonstrates full range of motion without limitations no tenderness. Barnett in place. Bilateral palpable dorsalis pedis pulses Objective Imaging CT scan pelvis: My impression: Nondisplaced right acetabular rim and does fracture extends into the mid weight-bearing dome best seen on series 3, image 57 Radiologist's impression: IMPRESSION:??Nondisplaced?intra-articular?fracture?of?the?superior?right?acetabular?rim Labs 08/12/23 06:02 [facility] Medical History HTN (hypertension) Depression GERD (gastroesophageal reflux disease) History of stroke Hemiparesis affecting right side as late effect of cerebrovascular accident Expressive aphasia CVA (cerebral vascular accident) Social History household members: other Tobacco & Substance Use Smoking Status: Former smoker alcohol intake: never Assessment & Plan Assessment and plan (1) Acetabulum fracture, right: Qualifiers: Encounter type: initial encounter Sublocation of acetabulum: dome Fracture type: closed Fracture alignment: nondisplaced Qualified Code(s): S32.484A - Nondisplaced dome fracture of right acetabulum, initial encounter for closed fracture Status: Acute Plan Nondisplaced right acetabulum fracture does extend through dome. Nondisplaced. Recommend non operative treatment with toe-touch weight-bearing on the right. This may be a significant challenge due to the patient's underlying hemiparesis. And may require predominantly wheelchair mobilization for the next 6 weeks, but may be touchdown weight-bearing on the right side with a walker if he is able to complete that. He will need to work with physical therapy and occupational therapy and may need additional placement regarding care, turning and pressure sore prevention. He will work with physical therapy and occupational therapy. If he is able to get up and mobilize toe-touch weight-bearing and walk at least 20 yd , then we would do repeat x-rays afterwards. If he has not able to complete this mobilization while in the hospital then would do repeat x-rays in 7-10 days this would be an AP pelvis and Judet views of the acetabulum try the iliac (external) oblique and obturator (internal) oblique views. If he is unable to lift himself these will need to be done at [facility] and not in the orthopedic clinic. We will maintain toe-touch or wheelchair use for the next 6 weeks then advance weight-bearing as tolerated after that. If displacement is noted then would have consultation with arthroplasty partner. will need DVT prophylaxis. Recommend Lovenox 40 mg subcutaneous daily times 35 days--- (oral alternative would be Xarelto 10 mg daily for 35 days)-- then after this is finished, can be converted to aspirin 81 mg b.i.d.
[2023-08-12 07:17] LABS: BUN Creatinine Ratio 20.3 (6-22); Blood Urea Nitrogen 29 mg/dL (9-20); Calcium 8.7 mg/dL (8.4-10.2); Carbon Dioxide 25 mmol/L (22-32); Chloride 103 mmol/L (98-107); Estimated Glomerular Filt Rate 48 mL/min (>60); Glucose 135 mg/dL (80-110); HEMOLYSIS 25 (0-50); Potassium 4.5 mmol/L (3.4-5.1); Sodium 134 mmol/L (137-145)
[2023-08-12 07:25] LABS: NT-proBNP (BNP-Adult 18+) 496 pg/mL (<450)
--- NOTE | 2023-08-12 07:57 | P.HP_ITS ---
History of Present Illness History of Present Illness Chief complaint: GLF Narrative: From overnight provider: 87 y/o with PMH of chronic right hemiparesis and expressive aphasia, from past Lt MCA CVA, who ambulates with a walker and cane, sustained ground level fall and landed on right hip. Xrays non-revealing but CT showing fracture of superior rim of Rt acetabulum. Orthopedic organizational development consultant recommended non-operative management, WBTT, pain management, PT, OT. Patient aphasic on admission, w/o family members that left earlier and Hx was practically unobtainable. This morning: Patient worked with PT/OT and SNF recommended. He is max 2 person assist. [facility] where he lives assessed and are hopeful for SNF before taking him back there. Patient is aphasic and cannot tell me if he is in pain, but he appears comfortable. [facility] Medical History HTN (hypertension) Depression GERD (gastroesophageal reflux disease) History of stroke Hemiparesis affecting right side as late effect of cerebrovascular accident Expressive aphasia CVA (cerebral vascular accident) Social History household members: other Smoking Status: Former smoker alcohol intake: never Meds Home Medications and Allergies Home Medications Medication Instructions Recorded Confirmed Type acetaminophen 325 mg tablet 650 mg PO Q4-6H PRN Pain (Scale 10/06/19 08/12/23 History Score 1-3) albuterol sulfate 0.63 mg/3 mL 0.63 mg inhalation Q4H PRN SOB 10/06/19 08/12/23 History solution for nebulization cholecalciferol (vitamin D3) 50 50 mcg PO DAILY 10/06/19 08/12/23 History mcg (2,000 unit) tablet (Vitamin D3) clopidogrel 75 mg tablet 75 mg PO DAILY 10/06/19 08/12/23 History famotidine 20 mg tablet 20 mg PO DAILY PRN GERD 10/06/19 08/12/23 History metformin 500 mg tablet,extended 500 mg PO BIDAC 10/06/19 08/12/23 History release 24hr (osmotic) tizanidine 2 mg tablet 2 mg PO BEDTIME 10/06/19 08/12/23 History venlafaxine 75 mg tablet 75 mg PO BID 10/06/19 08/12/23 History insulin degludec 100 unit/mL (3 15 unit (0.15 mL) SUBCUT BEDTIME 10/07/19 08/12/23 Rx mL) subcutaneous pen (Tresiba #15 mL FlexTouch U-100 insulin) amlodipine 5 mg tablet 7.5 mg PO DAILY 08/12/23 08/12/23 History atorvastatin 40 mg tablet 40 mg PO BEDTIME 08/12/23 08/12/23 History losartan 100 mg tablet 100 mg PO DAILY 08/12/23 08/12/23 History Allergies Allergy/AdvReac Type Severity Reaction Status Date / Time aspirin Allergy Verified 08/11/23 20:17 Penicillins Allergy Verified 08/11/23 20:17 Review of Systems Review of Systems Narrative: Unobtainable due to aphasia Exam Vital Signs (past 8 hours): - 08/12/23 00:00 08/12/23 00:00 08/12/23 00:30 Temperature Pulse Rate 71 70 Respiratory Rate 19 16 Blood Pressure 147/70 H Pulse Oximetry 95 94 Oxygen Delivery Method Oxygen Flow Rate 08/12/23 00:31 08/12/23 00:31 08/12/23 01:00 Temperature Pulse Rate 71 68 Respiratory Rate 18 20 Blood Pressure 145/68 H Pulse Oximetry 94 93 Oxygen Delivery Method Oxygen Flow Rate 08/12/23 01:01 08/12/23 01:01 08/12/23 01:29 Temperature 97.1 F L Pulse Rate 67 63 Respiratory Rate 19 16 Blood Pressure 135/64 119/60 Pulse Oximetry 93 95 Oxygen Delivery Method Room Air Oxygen Flow Rate 0 08/12/23 01:30 Temperature Pulse Rate Respiratory Rate Blood Pressure Pulse Oximetry Oxygen Delivery Method Room Air Oxygen Flow Rate Oxygen Delivery Method Room Air Oxygen Flow Rate 0 Narrative Exam Narrative: laying in bed in no distress, aphasic HENMT Other: normocephalic Resp Other: normal respiratory effort Cardio Other: RRR GI Other: abdomen not distended Skin Other: w/o rashes Extrem Other: w/o swelling pain with Rt hip weightbearing and ROMs Psych Other: appropriate mood Objective Labs 08/12/23 06:02 Labs: Laboratory Results - last 24 hr 08/12/23 06:02 Sodium 134 L Potassium 4.5 Chloride 103 Carbon Dioxide 25 BUN 29 H Creatinine 1.43 H Estimated GFR 48 L BUN/Creatinine Ratio 20.3 Glucose 135 H Calcium 8.7 NT-Pro-B Natriuret Pep 496 H Assessment & Plan Assessment & Plan narrative: Rt Acetabulum Fracture - due to GLF on right hip, ortho consulted - small, superior rim. Orthopedist recommended WBTT and repeating images after he is able to walk at least short distance with PT - PT/OT rec SNF - pain management - impaired mobility at baseline from old stroke, now worsened Hx of Lt MCA / chronic Rt HP and expressive aphasia - Plavix, statin, BP management HTN - HCTZ 25 mg daily DM - IDT2, Lantus, SS, CCD GERD - Pepcid 20 mg daily Depression - Effexor 75 mg bid Constipation - laxatives DVT prophylaxis - Lovenox Dispo: Likely to SNF on 08/14.
[2023-08-12] MEDS: hydroCHLOROthiazide 25 MG TABLET PO (09:55)
[2023-08-12] MEDS: CLOPIDOGREL 75 MG TABLET PO (09:55)
[2023-08-12] MEDS: TIZANIDINE 4 MG TABLET 2 MG PO (09:55)
[2023-08-12] MEDS: FAMOTIDINE 20 MG TABLET PO (09:56)
[2023-08-12] MEDS: VENLAFAXINE 37.5 MG TABLET 75 MG PO ×2 (09:56→20:15)
[2023-08-12] MEDS: DOCUSATE 100 MG CAPSULE PO ×2 (09:56→20:15)
[2023-08-12] MEDS: ENOXAPARIN 40 MG/0.4 ML SYRINGE SUBCUT (09:56)
--- NOTE | 2023-08-12 11:10 | PT.IIE ---
Current Diagnoses Depression, unspecified (08/12/23) Essential (primary) hypertension (08/12/23) Hemiplegia and hemiparesis following cerebral infarction affecting right dominant side (08/12/23) Gastro-esophageal reflux disease without esophagitis (08/12/23) Aphasia (08/12/23) Unspecified fracture of right acetabulum, initial encounter for closed fracture (08/12/23) Nondisplaced dome fracture of right acetabulum, initial encounter for closed fracture (08/12/23) Fall on same level, unspecified, initial encounter (08/12/23) Other reduced mobility (08/12/23) Other specified health status (08/12/23) Personal history of transient ischemic attack (TIA), and cerebral infarction without residual deficits (08/12/23) Medical History (Last Reviewed 08/12/23 @ 07:35 by Twila Sarabia MD) CVA (cerebral vascular accident) Depression Expressive aphasia GERD (gastroesophageal reflux disease) Hemiparesis affecting right side as late effect of cerebrovascular accident History of stroke HTN (hypertension) Physical Therapy Inpatient Evaluation/Re-Eval M1 PT/OT-IP Prior Functional Status Start: 08/12/23 13:56 Freq: NEEDED Status: Active Protocol: Document 08/12/23 11:10 AB (Rec: 08/12/23 14:18 AB [id number]) Medical Review Prior Functional Status Medical History Reviewed Yes Communication pt with h/o CVA and has aphasia; able to follow one step commands inconsistently Mobility and Gait PLOF and home set up obtained from pt's son: stated that pt requires assists with all mobility with one person assist him with bed mobility, transfers and ambulation using a SBQC. pt usually just ambulates in/out toilet using SBQC and usually sits on a chair. pt has a power w/c but only uses outdoors and with supervision due to safety issues; pt has a manual w/c but needs assist with maneuvering w/c. pt uses a R AFO. Activities of Daily Living and IADL's per OT note: Pt gets assist for all his ADL and IADL needs . Pt able to do eating and grooming after set-up assist. Social History Household Members other Living Arrangements Adult Family Home Number of Floors (Floors) One Floor Number of Stairs To Enter/Railing? pt lives at [facility] has a ramp to enter Home Environment High Toilet,Walk in Shower, Ramp Home Equipment Quad Cane,Manual Wheelchair, Power Wheelchair/Scooter, Bedside Commode,Shower Seat with Backrest,Grab Bars In Shower Additional Social History Comment pt has an adjustable bed with bilateral bed canes M2 PT-IP Current Condition Start: 08/12/23 13:56 Freq: NEEDED Status: Active Protocol: Document 08/12/23 11:10 AB (Rec: 08/12/23 14:18 AB [id number]) Physical Therapy Current Condition Current Condition Evaluation Date 08/12/23 Treatment Diagnosis GLF; R acetabular fx; difficulty in walking Onset Date 08/12/23 M3 PT-IP Subjective Start: 08/12/23 13:56 Freq: NEEDED Status: Active Protocol: Document 08/12/23 11:10 AB (Rec: 08/12/23 14:18 AB [id number]) Subjective Physical Therapy Visit Type Type Initial Evaluation Visit Start Time 11:10 Visit Stop Time 12:00 Number of AMBULATORY CARE NURSE Visits 0 Therapy Pain Assessment Pain When Pain Assessed At Rest Pain Present Pain Present Pain Reported Location Right Hip Scale Used a lot of pain per pt but unable to stated pain scale Pain Behaviors Guarding,Holding Area Pain Management Techniques Distraction,Modification of Treatment,Re-positioning, Timing of Activity with Medications M4 PT-IP Mobility and Gait Start: 08/12/23 13:56 Freq: NEEDED Status: Active Protocol: Document 08/12/23 11:10 AB (Rec: 08/12/23 14:18 AB [id number]) PT-Bed Mobility Assessment Supine to Sit Supine to Sit Maximum Assistance,2 Person Assistance,Head of Bed Elevated,Bedrails Scooting Scooting to Edge of Bed Maximum Assistance PT-Transfer Assessment Sit to and From Stand Sit to and from Stand Maximum Assistance,2 Person Assistance,Use of Upper Extremities Equipment Transfer Assistive Device Magdiel Walker Orthotic/Prosthetic Devices or Brace: Yes Transfers Transfer Destination Chair Transfer Technique Squat Pivot Transfer Ability Level of Assist Maximum Assistance,2 Person Assistance,Use of Upper Extremities Comments Mobility Comments pt supine in bed. pt's son in room and provided pt's PLOF and home set up. pt with h/o CVA ~ 8 years and has R sided weakness and uses R AFO. pt completed supine to sit max A x 2 and max cues with HOB elevated and use of bed rail. pt requiring mod A for initial sitting balance but able to sit SBA after repositioning. pt is impulsive and needs cues for safety. Per ortho MD: pt is TTWB but pt will not be able to follow TTWB and PT opted to do NWB on RLE for safety at this time. pt educated on weight bearing restriction and how to maintain NWB on RLE. pt completed sit to stand max A x 2 and max cues using hemiwalker for support. pt required max A for maintaining NWB on RLE. pt only tolerated ~ 3 sec partial standing max A and needs to sit down. (+) SOB: o2 satP 92 -95%. BP: 138/78. pt agreed to stand again max A x 2 and max cues and able to stand more upright max A x 2 for standing balance using hemiwalker. pt tolerated ~ 5 sec of standing. pt completed squat pivot transfer to chair max A x 2 and max cues with one person assisting to maintain NWB on RLE. positioned pt on the chair. Left pt with OT. PT-Balance Assessment Sitting Balance and Reactions Static Sitting Balance Ability Good Dynamic Sitting Balance Ability Fair Standing Balance and Reactions Static Standing Balance Ability Poor Dynamic Standing Balance Ability Poor Device Used hemiwalker M5 PT-IP Objective Assessments Start: 08/12/23 13:56 Freq: NEEDED Status: Active Protocol: Document 08/12/23 11:10 AB (Rec: 08/12/23 14:18 AB [id number]) Orientation Orientation/Cognition Level of Alertness Confusional State Orientation Name Language Function Ability Expressive Aphasia,Receptive Aphasia Safety Awareness Decreased Safety Awareness Gross Range of Motion Lower Extremity ROM Assessment Right Impaired Impairments R ankle tightness with limitied DF Strength Lower Extremity Strength Assessment Right Impaired Hip 3-/5 Knee 3+/5 Ankle 0/5 Muscle Tone Muscle Tone Location Right Upper Extremity Type of Tone Hypotonicity Severity of Tone Moderate Other Assessments Other Other Assessments with hand/finger contractures M6 PT-IP Treatment Start: 08/12/23 13:56 Freq: NEEDED Status: Active Protocol: Document 08/12/23 11:10 AB (Rec: 08/12/23 14:18 AB [id number]) Physical Therapy Treatment Education Education Provided Safety M7 PT-IP Assessment and Plan Start: 08/12/23 13:56 Freq: NEEDED Status: Active Protocol: Document 08/12/23 11:10 AB (Rec: 08/12/23 14:18 AB [id number]) PT Summary Assessment and Plan Potential Rehabilitation Potential Fair Status of Condition at Evaluation Evolving Summary Impairments Pain,ROM,Strength,Balance, Coordination,Sensation,Tone, Cognition,Bed Mobility, Transfers,Gait,Activity Tolerance Assessment Summary Pt is an 87 y/o M who had a GLF and sustained a R acetabular fx. pt's fx is non- operative at this time and per ortho MD: TTWB. pt with h/o CVA with R sided weakness and with aphasia. PT opted to do NWB at this time for safety due to pt's inability to follow TTWB. pt requiring max A x 2 and max cues with bed mobility and transfers and is non-ambulatory at this time. Recommending mechanical lift transfers with nursing staff. pt will benefit from SNF rehab . will continue to assess progress. Goals Bed Mobility Goal Minimal Assistance Transfer Goal Moderate Assistance Days to Meet Goals 10 Frequency of Treatment Frequency Of Treatment Once a Day Treatment Plan Physical Therapy Treatment Plan Bed Mobility Training,Transfer Training,Gait Training, Therapeutic Exercise,Balance Retraining,Discharge Planning, Hot or Cold Pack,Neuromuscular Re-ed,Coordination Retraining ,Manual Therapy Precautions Other Precautions falls Weight Bearing Status Weight Bearing Status Touch Down Weight Bearing Allowed Weight Bearing Amount (enter % RLE TTWB or #) (%) Recommendations To Nursing Amount of Assist Needed Mechanical Lift Discharge Recommendations PT Discharge Recommendations SNF Rehab Transportation Needs at Discharge Wheelchair/Cabulance,Stretcher /Ambulance
--- NOTE | 2023-08-12 11:57 | OT.IP.EVAL ---
Current Diagnoses Depression, unspecified (08/12/23) Essential (primary) hypertension (08/12/23) Hemiplegia and hemiparesis following cerebral infarction affecting right dominant side (08/12/23) Gastro-esophageal reflux disease without esophagitis (08/12/23) Aphasia (08/12/23) Unspecified fracture of right acetabulum, initial encounter for closed fracture (08/12/23) Nondisplaced dome fracture of right acetabulum, initial encounter for closed fracture (08/12/23) Fall on same level, unspecified, initial encounter (08/12/23) Other reduced mobility (08/12/23) Other specified health status (08/12/23) Personal history of transient ischemic attack (TIA), and cerebral infarction without residual deficits (08/12/23) Past Medical History (Last Reviewed 08/12/23 @ 07:35 by Twila Sarabia MD) CVA (cerebral vascular accident) Depression Expressive aphasia GERD (gastroesophageal reflux disease) Hemiparesis affecting right side as late effect of cerebrovascular accident History of stroke HTN (hypertension) Occupational Therapy Inpatient Evaluation/Re-Eval M1 PT/OT-IP Prior Functional Status Start: 08/12/23 12:14 Freq: NEEDED Status: Active Protocol: Document 08/12/23 12:14 [facility] (Rec: 08/12/23 12:44 [facility] [id number]) Medical Review Prior Functional Status Communication Pt has aphasia. Mobility and Gait Pt uses a SBQC to get around with one person assist mainly just for in home distances. Pt also has a manual wc, which someone has to push him or use of power chair which is questionable for safety for pt to use per son. Activities of Daily Living and IADL's Pt gets assist for all his ADL and IADL needs. Pt able to do eating and grooming after set -up assist. Prior Functional Level (Other details) Pt lives at [facility]. Social History Household Members other Living Arrangements Assisted Living Number of Floors (Floors) One Floor Number of Stairs To Enter/Railing? Pt lives on the first floor and has a ramp to enter. Home Environment High Toilet,Walk in Shower Home Equipment Quad Cane,Manual Wheelchair, Power Wheelchair/Scooter, Bedside Commode,Shower Seat with Backrest,Grab Bars In Shower Additional Social History Comment Pt has had a CVA approx 8 years ago resulting in right sided deficits RUE> RLE. M2 OT-IP Current Condition Start: 08/12/23 12:14 Freq: Status: Active Protocol: Document 08/12/23 12:14 [facility] (Rec: 08/12/23 12:44 [facility] [id number]) Occupational Therapy Current Condition Current Condition Evaluation Date 08/12/23 Treatment Diagnosis GLF with right acetabular fracture Diagnosis Onset Date 08/12/23 Weight Bearing Status Weight Bearing Status Touch Down Weight Bearing Allowed Weight Bearing Amount (enter % RLE TTWB at this time. or #) (%) M3 OT- IP Subjective and Pain Start: 08/12/23 12:14 Freq: Status: Active Protocol: Document 08/12/23 12:14 [facility] (Rec: 08/12/23 12:44 [facility] [id number]) OT- Subjective Occupational Therapy Visit Type Type Initial Evaluation Visit Start Time 11:10 Visit Stop Time 11:57 Occupational Therapy Visit Comments Patient Comments Pt agreed to get up and his son present in the room. Patient/Caregiver Goals To get better. OT Pain Assessment Pain When Pain Assessed During Mobility Pain Present Pain Present Pain Reported Location Right Hip Pain Behaviors Facial Grimacing,Holding Area, Moaning M4 OT- IP ADL's Start: 08/12/23 12:14 Freq: Status: Active Protocol: Document 08/12/23 12:14 [facility] (Rec: 08/12/23 12:44 [facility] [id number]) OT [id number] Comments OT Self-Feeding Comments At this time pt valeri need set- up assist for all eating needs . OT ADL-Grooming General Evaluation Grooming Ability Standby Assistance Areas Needing Assistance Retrieving/Set-up of Grooming Items Comments OT Grooming Comments Set-up assist due to right hand contracture and decreased functional use of RUE. OT ADL-Oral Care General Eval Oral Care Ability Standby Assistance Areas of Assistance Retrieving/Set-Up of Items Comments Oral Care Comments Set-up assist while in the recliner. OT ADL-Dressing General Eval Upper Body Dressing Ability Maximum Assistance Lower Body Dressing Ability Total Assistance Areas Needing Assistance Socks,Shoes,Orthosis/ Prosthesis Comments OT Dressing Comments MODA to assist with gown management needs and total assist for socks, shoes and right AFO. OT ADL-Toileting Comments OT Toileting Comments Pt not having to go at this time. OT ADL-Bathing Bathing Type Bathing Type Sponge Bath Comments OT Bathing Comments Sponge bath more appropriate at this time. M5 OT- IP IADL's Start: 08/12/23 12:14 Freq: Status: Active Protocol: Document 08/12/23 12:14 [facility] (Rec: 08/12/23 12:44 [facility] [id number]) OT-Instrumental Activities of Daily Living Home Safety Awareness Awareness of Need for Assistance at Home Decreased Awareness Ability to Problem Solve Emergency Unable to Problem Solve Situations Medication Management Medication Management Caregiver Administers Money Management Money Management Caregiver Provides Assistance Meal Preparation Meal Preparation Caregiver Provides Assist Gre Instructor Gre Instructor Caregiver Provides Assist M6 OT- IP Functional Cognition Start: 08/12/23 12:14 Freq: Status: Active Protocol: Document 08/12/23 12:14 [facility] (Rec: 08/12/23 12:44 [facility] [id number]) Cognitive Factors Limiting Selfcare Function Cognitive Ability Level of Alertness Alert Patient Orientation Name Attention Span Ability Capable of Focused Attention, Unable to Sustain Attention Ability to Follow Commands Able to Follow One Step Commands with Increased Time, Able to Follow One Step Commands with Repetition Memory Description Short Term Impaired,Asset Accountant Impaired,Working Impaired Safety Awareness Underestimates Need for Assistance Problem Solving Ability Unable to Identify Errors, Needs Assist to Identify Solutions Cognitive Comments Cognitive Assessment Comments Pt has aphasia and able to follow simple routine needs for oral care. Pt needing step by step commands to follow, in addition to visual and tactile cues. Pt is a bit impulsive at time, but once able to understand what is being said, does much better. OT- Vision and Hearing OT- Vision Assessment Visual Acuity Glasses All The Time Visual Attentiveness WFL Occular Pursuits WFL M7 OT- IP Mobility and Balance Start: 08/12/23 12:14 Freq: Status: Active Protocol: Document 08/12/23 12:14 [facility] (Rec: 08/12/23 12:44 [facility] [id number]) OT- Bed Mobility Assessment Rolling Level of Assistance Moderate Assistance,Maximum Assistance,2 Person Assistance ,Head of Bed Elevated Scooting Scooting to Edge of Bed Moderate Assistance,1 Person Assistance OT-Transfer Assessment Sit to and From Stand Sit to and from Stand Maximum Assistance,2 Person Assistance Transfers Transfer Ability Maximum Assistance,2 Person Assistance Technique Transfer Destination Bed,Chair Transfer Technique Stand Step Pivot Devices Transfer Assistive Devices Gait Belt,Magdiel Walker Comments Mobility Comments MOD/MAX A x2 with HOB to get to the edge of the bed. MAX AX 2 to stand to the magdiel walker and assist to help keep pt off his RLE as not able to follow TTWB for RLE at this time, especially while having his AFO on. Able to transfer squat pivot with MAXA X 2 assist for RLE and RUE and to assist to pivot to the recliner. At this time safer to use patrizia lift for nursing needs. OT- Balance Assessment Sitting Balance and Reactions Static Sitting Balance Ability Good Dynamic Sitting Balance Ability Fair Standing Balance and Reactions Static Standing Balance Ability Poor Dynamic Standing Balance Ability Poor M8 OT- IP Objective Assessments Start: 08/12/23 12:14 Freq: Status: Active Protocol: Document 08/12/23 12:14 [facility] (Rec: 08/12/23 12:44 [facility] [id number]) OT Gross Range of Motion Upper Extremity Range of Motion Assessment Right Impaired OT Strength Upper Extremity Strength Assessment Right Impaired Comments Strength Comments RUE internally rotated, with right wrist and finger flexion . Pt does not have any use of his RUE or movements- per pt pt had a CVA 8 years ago. OT- Coordination Assessment Upper Extremity Finger to Nose Test Right UE Impaired Finger Tapping Test Right UE Impaired OT-Muscle Tone Assessment Muscle Tone WNL No Comments Muscle Tone Comments Increased tone with RUE and RLE M9 OT- IP Assessment and Plan Start: 08/12/23 12:14 Freq: Status: Active Protocol: Document 08/12/23 12:14 [facility] (Rec: 08/12/23 12:44 [facility] [id number]) OT Summary Assessment and Plan Potential Rehabilitation Potential Fair Analytic Complexity at Evaluation Moderate Summary OT Impairments Pain,Strength,Balance, Functional Mobility,Toilet Transfers,Shower Transfers Progress Towards Goals Progressing Toward Goals Assessment Summary Pt MOD complexity and nathan barriers are pain, having prior history of CVA with right sided deficits, now TTWB for RLE and now needing extensive two person assist for all ADL and mobility needs. Prior pt is mostly one person assist at his Adult family home. Pt will benefit from skilled rehab to increased overall independence with mobility needs to one person assist so able to go back to his adult family home. Able to talk to pt's son for equipment needs, especially if wanting to go back to his adult family home- would benefit from patrizia lift and other equipment needs. Goals Toilet Transfer Goal Moderate Assistance,Bedside Commode Shower Transfer Goal Moderate Assistance,Shower Chair,Tub Transfer Bench Days to Meet Goals 15 Frequency of Treatment Frequency Of Treatment Once a Day Treatment Plan OT Treatment Plan ADL Training,Functional Mobility,Patient/Family Education,Discharge Planning Other Treatment Recommendations and Next squat pivot transfer to drop Treatment Focus arm BSC with MODA X 2 and hemiwalker. Discharge Recommendations OT Discharge Recommendations SNF Rehab Transportation Needs at Discharge Wheelchair/Cabulance
--- NOTE | 2023-08-12 14:32 | CM.DANOTE ---
Addendum entered by CORBY Terry 08/12/23 15:40: From Kelly at , likely able to accept but asked for this CM team to continue to check in/update her closer to dc date for bed availability. SL Original Note: DCP Assessment Note Pt is a 87yo M here under INPT status under the care of the hospital team/ortho surgeons consulting. Pt had a GLF resulting in a non operable Nondisplaced right acetabulum fracture. Current ortho rec is toe touch or w/c use then advance to weight-bearing as tolerated. PCP Dr. Edenilson Martinez(?) in [place] Payer Medicare and [facility] CRISIS COUNSELOR reviewed EMR. Per PT/OT, rec SNF placement at this time. CRISIS COUNSELOR met with pt, son Arnulfo ( [phone]) and Mirta/Dorothy, owners of the [facility] pt lives at, [place]. Pt approved CM team contacted Arnulfo/giving appropriate DCP information to Arnulfo and Mirta/Dorothy. Pt has a PMH of expressive aphasia from previous CVA that limits his ability to articulate, however, is able to yes/no throughout conversation to express preferences and understanding. Pt lives at [facility] and uses a walker/cane at baseline. [facility] owners retired a few years ago and are no longer an active facility per say, but remain as essentially private caregivers for Arnulfo as their sole remaining resident. CRISIS COUNSELOR reviewed INS benefit/SNF placement options/barriers to dc. CRISIS COUNSELOR explained the 3 midnight of INPT status, Medicare benefit timeline, and that if after 3 midnights of INPT status they decide to DC home, Medicare SNF benefit remains an option it just needs to be arranged by PCP not hospital and it could take a few days. Pt/son expressed understanding. After Mirta/Dorothy completed their bedside assessment, they determined based on pt's current needs he would be better served at SNF for rehab prior to returning home. Mirta/Dorothy would be willing to rereview throughout pt's stay here and if he improves, they would be willing to take him back home/to their [facility]. As backup, Mirta/Dorothy plan to get different equip/hospital bed (working to contact PCP for hospital bed) for pt's either dc from here or after rehab. If pt decides to dc home, pt/son/Mirta/Dorothy hopeful for w/c van transport, report verbal understanding that it would be PP and could likely be a few hundred dollars but this CRISIS COUNSELOR is not able to give an exact cost estimate. CRISIS COUNSELOR spoke with Kelly from [facility] to review referral. DANICA Liya kindly agreed to email clinicals. Acceptance pending. CRISIS COUNSELOR updated RN/hospitalist. P: Home to [facility] with the support of CGs/son, transport via wheelchair van vs [facility], pending acceptance. PASRR needed if SNF. Pt preference pending improvement with therapies. DC anticipated for Friday for 3rd midnight INPT. CORBY Terry Discharge Planning/Care Management CM Discharge Assessment Start: 08/12/23 14:28 Freq: Status: Active Protocol: Document 08/12/23 14:28 (Rec: 08/12/23 14:32 [id number]) Discharge Planning Assessment Assigned Skip Tracer CORBY Wade DPOA/Assigned Designee Name nancy Arredondo Contact Information [phone] Advance Directives? Yes Advance Directives on File Yes History Provided By Family Member Prior Living Arrangements Assisted Living Household Members other Type of transporation used prior to Relies on Others admit Facility Name Admitted From: [facility] Willing to Return to Facility? Yes Independent with ADL's No Is patient alert and oriented? Yes Needs Assistance With Meal Prep,Managing Medications ,Home Chores / Shopping DME Already Rented / Owned FWW / Walker,Cane Patient/Family Preference Group Home Facility Comment SNF vs return to [facility] Discharge Plan Group Home Facility Transportation Arrangement wheelchair van transport Referrals Initiated Group Home SNF/HH Preference [facility] Has Agency SNF been contacted Yes Comment Kelly from [facility] reviewing Whiteboard Updated in Patient Room with Yes name and ext. # of Skip Tracer Review Status In Process Please Provide Date Initial DC 08/12/23 Assessment Was Performed Next Review Type Continued Stay Review
--- NOTE | 2023-08-12 16:43 | PC.NURSE ---
Pt requested to get back into bed. Hoyered back to bed-tolerated well. Attempted to place condom cath but Pt was unable to retain in place. Brief changed. Pt set up for dinner and bed alarm is on for safety.
[2023-08-12] MEDS: SENNOSIDES 8.6 MG TABLET 17.2 MG PO (20:15)
[2023-08-12] MEDS: ATORVASTATIN 20 MG TABLET PO (20:15)
[2023-08-12] MEDS: INSULIN GLARGINE 100 UNIT/ML 3ML PEN 15 UNIT SUBCUT (20:55)
[2023-08-13 04:35] VITALS: BP 138/48; PULSE 71; RESP 20; TEMP 36.6; O2SAT 93
[2023-08-13] MEDS: METFORMIN XR 500 MG TABLET PO (06:09)
--- NOTE | 2023-08-13 07:47 | PM.PN.1 ---
Subjective Subjective Date Patient Seen: 08/13/23 Time Patient Seen: 07:48 Interval history: Arnulfo is lying comfortably in bed. He is able to point to his right hip as to where he has pain. He is only able to answer directed questions in a yes or no fashion. When asked if he is currently in pain he says no. Exam Vital Signs (past 8 hours): - 08/13/23 04:35 Temperature 97.9 F Pulse Rate 71 Respiratory Rate 20 Blood Pressure 138/48 L Pulse Oximetry 93 Oxygen Flow Rate 0 Oxygen Delivery Method Room Air Oxygen Flow Rate 0 Narrative Exam Narrative: Hemiparesis of right side no active motion of right upper extremity, contractures present. Right lower extremity no active motion of dorsiflexion or plantar flexion. Patient states he has no increase in pain to palpation over the right greater trochanteric region. Does point he has pain along the right inguinal canal. No swelling or pain around the right knee and thigh with palpation or compression. Left lower extremity demonstrates active dorsiflexion and plantar flexion. No tenderness to palpation. No gross deformities. Left upper extremity demonstrates full range of motion without limitations no tenderness. Bilateral pedal pulses intact. SCDs are on bilaterally of the calves. Const General: comfortable Resp Effort & Inspection: normal respiratory effort and able to speak in complete sentences (Understands directed questions, but can only respond with yah or nay) Objective Labs 08/12/23 06:02 [facility] Medical History HTN (hypertension) Depression GERD (gastroesophageal reflux disease) History of stroke Hemiparesis affecting right side as late effect of cerebrovascular accident Expressive aphasia CVA (cerebral vascular accident) Social History household members: other Smoking Status: Former smoker alcohol intake: never Assessment & Plan Assessment & Plan narrative: Assessment: Acetabulum fracture, right Plan: Recommend non operative treatment with toe-touch weight-bearing on the right. He may require predominantly wheelchair mobilization for the next 6 weeks, but may be touchdown weight-bearing on the right side with a walker if he is able to complete that. He will need to work with physical therapy and occupational therapy and may need additional placement regarding care, turning and pressure sore prevention. He will work with physical therapy and occupational therapy. If he is able to get up and mobilize toe-touch weight-bearing and walk at least 20 yd , then we would do repeat x-rays afterwards. If he has not able to complete this mobilization while in the hospital then would do repeat x-rays in 7-10 days this would be an AP pelvis and Judet views of the acetabulum try the iliac (external) oblique and obturator (internal) oblique views. If he is unable to lift himself these will need to be done at [facility] and not in the orthopedic clinic. If displacement is noted then would have consultation with arthroplasty surgeon. Will need DVT prophylaxis. Recommend Lovenox 40 mg subcutaneous daily times 35 days--- (oral alternative would be Xarelto 10 mg daily for 35 days)-- then after this is finished, can be converted to aspirin 81 mg b.i.d. Position and turn q2hr Continue with SCD's while admitted. Time Spent With Patient Time with patient: less than 30 minutes
[2023-08-13] MEDS: VENLAFAXINE 37.5 MG TABLET 75 MG PO ×2 (10:21→20:40)
[2023-08-13] MEDS: CLOPIDOGREL 75 MG TABLET PO (10:22)
[2023-08-13] MEDS: FAMOTIDINE 20 MG TABLET PO (10:22)
[2023-08-13] MEDS: TIZANIDINE 4 MG TABLET 2 MG PO (10:22)
[2023-08-13] MEDS: hydroCHLOROthiazide 25 MG TABLET PO (10:22)
[2023-08-13] MEDS: ENOXAPARIN 40 MG/0.4 ML SYRINGE SUBCUT (10:22)
[2023-08-13] MEDS: ACETAMINOPHEN 325 MG TABLET 650 MG PO (10:35)
[2023-08-13 12:00] VITALS: BP 137/70; PULSE 71; RESP 18; TEMP 37.1; O2SAT 94
--- NOTE | 2023-08-13 12:14 | PT.IPTN ---
Current Diagnoses Depression, unspecified (08/12/23) Essential (primary) hypertension (08/12/23) Hemiplegia and hemiparesis following cerebral infarction affecting right dominant side (08/12/23) Gastro-esophageal reflux disease without esophagitis (08/12/23) Aphasia (08/12/23) Unspecified fracture of right acetabulum, initial encounter for closed fracture (08/12/23) Nondisplaced dome fracture of right acetabulum, initial encounter for closed fracture (08/12/23) Fall on same level, unspecified, initial encounter (08/12/23) Other reduced mobility (08/12/23) Other specified health status (08/12/23) Personal history of transient ischemic attack (TIA), and cerebral infarction without residual deficits (08/12/23) Physical Therapy Treatment Note M2 PT-IP Current Condition Start: 08/12/23 13:56 Freq: NEEDED Status: Active Protocol: Document 08/12/23 11:10 AB (Rec: 08/12/23 14:18 AB [id number]) Physical Therapy Current Condition Current Condition Evaluation Date 08/12/23 Treatment Diagnosis GLF; R acetabular fx; difficulty in walking Onset Date 08/12/23 M3 PT-IP Subjective Start: 08/12/23 13:56 Freq: NEEDED Status: Active Protocol: Document 08/13/23 12:57 TS (Rec: 08/13/23 13:10 TS [id number]) Subjective Physical Therapy Visit Type Type Treatment Note Visit Start Time 12:14 Visit Stop Time 12:44 Number of MANAGER SMALL BUSINESS Visits 1 Physical Therapy Visit Comments Patient Comments Pt found sitting EOB, pt is agreeable to PT. Therapy Pain Assessment Pain When Pain Assessed During Mobility Pain Present Pain Present Pain Reported M4 PT-IP Mobility and Gait Start: 08/12/23 13:56 Freq: NEEDED Status: Active Protocol: Document 08/13/23 12:57 TS (Rec: 08/13/23 13:10 TS [id number]) PT-Transfer Assessment Sit to and From Stand Sit to and from Stand Moderate Assistance,2 Person Assistance Equipment Transfer Assistive Device Gait Belt,Magdiel Walker Orthotic/Prosthetic Devices or Brace: Yes Transfers Transfer Destination Chair Transfer Technique Stand Step Pivot Transfer Ability Level of Assist Moderate Assistance,Maximum Assistance,2 Person Assistance Comments Mobility Comments Pt performed STS from EOB ModA x2 with support of LLE, pt follows cues well. Pt attempted stand pivot to chair with hemiwalker, could not maintain TTWB on RLE, pt required to sit down. He performed squat pivot to chair with max cues and ModA x2. Pt performed slideboard transfer to bed from chair with MaxA x2 with max cue for sequencing . Sldieboard transfer back to chair MaxA x2 with support of RLE. Pt was left in chair, all needs met. Gait Assessment Comments Gait Comments Unable PT-Balance Assessment Sitting Balance and Reactions Static Sitting Balance Ability Good Dynamic Sitting Balance Ability Fair Standing Balance and Reactions Static Standing Balance Ability Fair Dynamic Standing Balance Ability Poor Device Used hemiwalker M5 PT-IP Objective Assessments Start: 08/12/23 13:56 Freq: NEEDED Status: Active Protocol: Document 08/12/23 11:10 AB (Rec: 08/12/23 14:18 AB [id number]) Orientation Orientation/Cognition Level of Alertness Confusional State Orientation Name Language Function Ability Expressive Aphasia,Receptive Aphasia Safety Awareness Decreased Safety Awareness Gross Range of Motion Lower Extremity ROM Assessment Right Impaired Impairments R ankle tightness with limitied DF Strength Lower Extremity Strength Assessment Right Impaired Hip 3-/5 Knee 3+/5 Ankle 0/5 Muscle Tone Muscle Tone Location Right Upper Extremity Type of Tone Hypotonicity Severity of Tone Moderate Other Assessments Other Other Assessments with hand/finger contractures M6 PT-IP Treatment Start: 08/12/23 13:56 Freq: NEEDED Status: Active Protocol: Document 08/13/23 12:57 TS (Rec: 08/13/23 13:10 TS [id number]) Physical Therapy Treatment Education Education Provided Safety M7 PT-IP Assessment and Plan Start: 08/12/23 13:56 Freq: NEEDED Status: Active Protocol: Document 08/13/23 12:57 TS (Rec: 08/13/23 13:10 TS [id number]) PT Summary Assessment and Plan Potential Rehabilitation Potential Fair Summary Impairments Pain,ROM,Strength,Balance, Coordination,Sensation,Tone, Cognition,Bed Mobility, Transfers,Gait,Activity Tolerance Progress Towards Goals Slow Progress due to Pain,Slow Progress due to Activity Tolerance Assessment Summary Arnulfo is making some progress with his mobility but remains limited. He performed STS ModA x2 with use of hemiwalker. Pt attempted to perform pivot transfer to chair with hemiwalker but could no complete. He completed squat pivot to chair ModA x2 with max cues and performed x2 slideboard transfers with MaxA x2. Pt requires RLE maintained off ground to complete all transfers. He follows instructions most of the time, can be impulsive. PT is recommending Home vs SNF at this time. Goals Bed Mobility Goal Minimal Assistance Transfer Goal Moderate Assistance Days to Meet Goals 10 Frequency of Treatment Frequency Of Treatment Once a Day Treatment Plan Physical Therapy Treatment Plan Bed Mobility Training,Transfer Training,Gait Training, Therapeutic Exercise,Balance Retraining,Discharge Planning, Hot or Cold Pack,Neuromuscular Re-ed,Coordination Retraining ,Manual Therapy Precautions Other Precautions falls Weight Bearing Status Weight Bearing Status Touch Down Weight Bearing Allowed Weight Bearing Amount (enter % RLE TTWB at this time. or #) (%) Recommendations To Nursing Amount of Assist Needed Mechanical Lift Discharge Recommendations PT Discharge Recommendations Home with 30/09 Assist Available,Home Health,SNF Rehab,Home vs SNF Transportation Needs at Discharge Wheelchair/Cabulance,Stretcher /Ambulance
[2023-08-13] MEDS: OXYCODONE IR 5 MG TABLET PO (12:28)
--- NOTE | 2023-08-13 12:45 | OT.IP.TRT ---
Current Diagnoses Depression, unspecified (08/12/23) Essential (primary) hypertension (08/12/23) Hemiplegia and hemiparesis following cerebral infarction affecting right dominant side (08/12/23) Gastro-esophageal reflux disease without esophagitis (08/12/23) Aphasia (08/12/23) Unspecified fracture of right acetabulum, initial encounter for closed fracture (08/12/23) Nondisplaced dome fracture of right acetabulum, initial encounter for closed fracture (08/12/23) Fall on same level, unspecified, initial encounter (08/12/23) Other reduced mobility (08/12/23) Other specified health status (08/12/23) Personal history of transient ischemic attack (TIA), and cerebral infarction without residual deficits (08/12/23) Occupational Therapy Treatment Note M2 OT-IP Current Condition Start: 08/12/23 12:14 Freq: Status: Active Protocol: Document 08/12/23 12:14 [facility] (Rec: 08/12/23 12:44 [facility] [id number]) Occupational Therapy Current Condition Current Condition Evaluation Date 08/12/23 Treatment Diagnosis GLF with right acetabular fracture Diagnosis Onset Date 08/12/23 Weight Bearing Status Weight Bearing Status Touch Down Weight Bearing Allowed Weight Bearing Amount (enter % RLE TTWB at this time. or #) (%) M3 OT- IP Subjective and Pain Start: 08/12/23 12:14 Freq: Status: Active Protocol: Document 08/13/23 12:53 [facility] (Rec: 08/13/23 13:20 [facility] [id number]) OT- Subjective Occupational Therapy Visit Type Type Treatment Note Visit Start Time 12:05 Visit Stop Time 12:34 Occupational Therapy Visit Comments Patient Comments Pt agreed to get up. CHILD PSYCHOLOGIST present for complex transfer as pt is TTWB for RLE. Patient/Caregiver Goals To get better. OT Pain Assessment Pain When Pain Assessed During Mobility Pain Present Pain Present Pain Reported Location Right Hip Pain Behaviors Facial Grimacing,Moaning M4 OT- IP ADL's Start: 08/12/23 12:14 Freq: Status: Active Protocol: Document 08/13/23 12:53 [facility] (Rec: 08/13/23 13:20 [facility] [id number]) OT [id number] Comments OT Self-Feeding Comments Pt needs set-up assist. When drinking water, noted pt coughing and voice sounding wet, suggested to nursing for DRYING FRAME OPERATOR eval. OT ADL-Grooming Comments OT Grooming Comments Not performed. OT ADL-Oral Care Comments Oral Care Comments Not performed. OT ADL-Dressing General Eval Upper Body Dressing Ability Maximum Assistance Lower Body Dressing Ability Total Assistance Areas Needing Assistance Socks,Shoes,Orthosis/ Prosthesis OT ADL-Toileting General Evaluation Toileting Ability Total Assistance Comments OT Toileting Comments Pt has an external catheter on . OT ADL-Bathing Comments OT Bathing Comments Sponge bath more appropriate at this time, or use of rolling shower chair. M5 OT- IP IADL's Start: 08/12/23 12:14 Freq: Status: Active Protocol: Document 08/12/23 12:14 [facility] (Rec: 08/12/23 12:44 [facility] [id number]) OT-Instrumental Activities of Daily Living Home Safety Awareness Awareness of Need for Assistance at Home Decreased Awareness Ability to Problem Solve Emergency Unable to Problem Solve Situations Medication Management Medication Management Caregiver Administers Money Management Money Management Caregiver Provides Assistance Meal Preparation Meal Preparation Caregiver Provides Assist Tool Machinist Tool Machinist Caregiver Provides Assist M6 OT- IP Functional Cognition Start: 08/12/23 12:14 Freq: Status: Active Protocol: Document 08/13/23 12:53 [facility] (Rec: 08/13/23 13:20 [facility] [id number]) Cognitive Factors Limiting Selfcare Function Cognitive Comments Cognitive Assessment Comments Pt is inconsistent with yes/no questions at this time, however did finally agreed to pain medications. Pt is pleasant, cooperative but has difficulty to follow commands and can be a little impulsive. M7 OT- IP Mobility and Balance Start: 08/12/23 12:14 Freq: Status: Active Protocol: Document 08/13/23 12:53 [facility] (Rec: 08/13/23 13:20 [facility] [id number]) OT- Bed Mobility Assessment Supine to Sit Supine to Sit Assist Maximum Assistance,Total Assistance,Head of Bed Elevated Scooting Scooting to Edge of Bed Moderate Assistance,1 Person Assistance OT-Transfer Assessment Sit to and From Stand Sit to and from Stand Moderate Assistance,Maximum Assistance,2 Person Assistance Transfers Transfer Ability Moderate Assistance,Maximum Assistance,2 Person Assistance Technique Transfer Destination Bed,Chair Transfer Technique Stand Step Pivot Devices Transfer Assistive Devices Gait Belt,Magdiel Walker Comments Mobility Comments MAXAx1 to get to the edge of the bed. Pt able to move his RLE better, but still needing MAUDE at times. Assist to get his trunk upright and scoot to the edge of the bed. MODA X 2 squat pivot to the recliner, assist to hold his RLE and for balance. Able to try sliding board to the left with use of bed rail and able to do with MODA X 2. As pt tired pt needing more assist when going back to the recliner and needing MAX AX 2. At this time much safer to use the patrizia for mobility needs. OT- Balance Assessment Sitting Balance and Reactions Static Sitting Balance Ability Good Dynamic Sitting Balance Ability Fair Standing Balance and Reactions Static Standing Balance Ability Poor Dynamic Standing Balance Ability Poor M8 OT- IP Objective Assessments Start: 08/12/23 12:14 Freq: Status: Active Protocol: Document 08/12/23 12:14 [facility] (Rec: 08/12/23 12:44 [facility] [id number]) OT Gross Range of Motion Upper Extremity Range of Motion Assessment Right Impaired OT Strength Upper Extremity Strength Assessment Right Impaired Comments Strength Comments RUE internally rotated, with right wrist and finger flexion . Pt does not have any use of his RUE or movements- per pt pt had a CVA 8 years ago. OT- Coordination Assessment Upper Extremity Finger to Nose Test Right UE Impaired Finger Tapping Test Right UE Impaired OT-Muscle Tone Assessment Muscle Tone WNL No Comments Muscle Tone Comments Increased tone with RUE and RLE M9 OT- IP Assessment and Plan Start: 08/12/23 12:14 Freq: Status: Active Protocol: Document 08/13/23 12:53 [facility] (Rec: 08/13/23 13:20 [facility] [id number]) OT Summary Assessment and Plan Potential Rehabilitation Potential Good Analytic Complexity at Evaluation Moderate Summary OT Impairments Pain,Strength,Balance, Functional Mobility,Toilet Transfers,Shower Transfers Progress Towards Goals Progressing Toward Goals Assessment Summary Pt able to participate in several transfers and coming to stand with hemiwalker today but needing 2 person extensive assist. Pt would greatly benefit from skilled rehab to improve his independence and consistency for transfers especially. Otherwise pending if his adult family home is equipped to be able to care for him as may need to use the patrizia lift at times for his safety. Pt very inconsistent with his yes/no verbally and also not fully consistent when pointing to a sign that states yes versus no. Noted pt coughing on thin liquids and appears to sound wet in his voice and suggested pt to have a DRYING FRAME OPERATOR eval. Goals Toilet Transfer Goal Moderate Assistance,Bedside Commode Shower Transfer Goal Moderate Assistance,Shower Chair,Tub Transfer Bench Days to Meet Goals 14 Frequency of Treatment Frequency Of Treatment Once a Day Treatment Plan OT Treatment Plan ADL Training,Functional Mobility,Patient/Family Education,Discharge Planning Other Treatment Recommendations and Next squat pivot transfer to drop Treatment Focus arm BSC with MODA X 2 and hemiwalker. Discharge Recommendations OT Discharge Recommendations SNF Rehab Other Discharge Recommendations Pending assist and equipment set-up, possibly home with / assist and home health. Transportation Needs at Discharge Wheelchair/Cabulance
--- NOTE | 2023-08-13 12:55 | DI.RAD.S_ITS ---
PROCEDURE: XR CHEST 1V INDICATIONS: new wheezing TECHNIQUE: One view of the chest was acquired. COMPARISON: [facility], CR, XR CHEST 1V, 12/30/2019, 15:32. [facility], CR, XR CHEST 1V, 10/06/2019, 14:53. FINDINGS: Surgical changes and devices: None. Lungs and pleura: Lungs are clear. No pleural effusions or pneumothorax. Mediastinum: Mediastinal contours appear normal. Heart size is normal. Bones and chest wall: No suspicious bony lesions. Overlying soft tissues appear unremarkable. IMPRESSION: No acute cardiopulmonary abnormality is seen. Dictated by: Ashok Sexton M.D. on 08/13/2023 at 13:41 Approved by: Ashok Sexton M.D. on 08/13/2023 at 13:41
--- NOTE | 2023-08-13 13:04 | P.PN_ITS ---
Subjective Subjective Interval history: Patient is more wheezy today. OT noted some swallowing difficulty and recommended VETERANS SERVICE REPRESENTATIVE eval. CXR and duonebs ordered. Exam Vital Signs (past 8 hours): - 08/13/23 10:00 Oxygen Delivery Method Room Air Oxygen Delivery Method Room Air Oxygen Flow Rate 0 Narrative Exam Narrative: laying in bed in no distress, aphasic HENMT Other: normocephalic Resp Other: expiratory wheezes present Cardio Other: RRR GI Other: abdomen not distended Skin Other: w/o rashes Extrem Other: w/o swelling pain with Rt hip weightbearing and ROMs Psych Other: appropriate mood Objective Labs 08/12/23 06:02 [facility] Medical History HTN (hypertension) Depression GERD (gastroesophageal reflux disease) History of stroke Hemiparesis affecting right side as late effect of cerebrovascular accident Expressive aphasia CVA (cerebral vascular accident) Social History household members: other Smoking Status: Former smoker alcohol intake: never Assessment & Plan Assessment & Plan narrative: Rt Acetabulum Fracture - due to GLF on right hip, ortho consulted - small, superior rim. Orthopedist recommended WBTT and repeating images after he is able to walk at least short distance with PT - PT/OT rec SNF - pain management - impaired mobility at baseline from old stroke, now worsened Wheezing -obtain CXR -duonebs PRN -VETERANS SERVICE REPRESENTATIVE eval as OT had concerns for aspiration Hx of Lt MCA / chronic Rt HP and expressive aphasia - Plavix, statin, BP management HTN - HCTZ 25 mg daily DM - IDT2, Lantus, SS, CCD GERD - Pepcid 20 mg daily Depression - Effexor 75 mg bid Constipation - laxatives DVT prophylaxis - Lovenox Dispo: Likely to SNF on 08/14.
[2023-08-13] MEDS: ALBUTEROL/IPRATROPIUM 3 ML AMPUL INH (14:17)
--- NOTE | 2023-08-13 14:53 | CM.DPNOTE ---
DCP Note FIXTURE FABRICATOR REPAIRER reviewed EMR. Per chart review, pt remains 2PMA with PT/OT. BUNG REMOVER Shilo confirms wheelchair van/cabulance would remain likely safest transportation plan for pt. FIXTURE FABRICATOR REPAIRER attempted to meet with pt in room. Pt getting breathing treatment from RT. Pt being visited by caregiver Mirta. Mirta reports they are working on getting equipt for pt but would still like to reassess their ability to meet his needs based on pt's presentation Friday. FIXTURE FABRICATOR REPAIRER updated Mirta on pt's likely acceptance to [facility] but that they were unsure of bed availability Friday. Mirta expressed understanding and reported he would pass the information along to son Arnulfo. FIXTURE FABRICATOR REPAIRER completed Level 1 PASRR. Level 2 eval indicated by pt's history of depression/anticipated 6 weeks of being toe touch weight barring. FIXTURE FABRICATOR REPAIRER spoke with Lelo [facility] coordinator. After reviewing case, Lelo invalided the level 1. FIXTURE FABRICATOR REPAIRER faxed level 1 PASRR to Lelo for review. P: home with [facility] vs [facility] Friday (3rd midnight), pending ability of [facility] to meet pt's needs and pt preference. Transport with wheelchair cabluance- CM team will assist in arranging closer to Friday. CM team will continue to follow closely. CORBY Terry
--- NOTE | 2023-08-13 19:43 | PC.NURSE ---
19:36- Received call from patients caregiver, Sampson Ashford, stating that there was some confusion as to whether patient takes metformin and it was added to the medication list. He said that he wanted to clarify that he went back over patients medications and he does not take metformin.
[2023-08-13 20:19] VITALS: BP 168/54; PULSE 72; RESP 18; TEMP 36.5; O2SAT 94
[2023-08-13] MEDS: ATORVASTATIN 20 MG TABLET PO (20:40)
[2023-08-13] MEDS: SENNOSIDES 8.6 MG TABLET 17.2 MG PO (20:40)
[2023-08-13] MEDS: INSULIN GLARGINE 100 UNIT/ML 3ML PEN 15 UNIT SUBCUT (20:47)
[2023-08-14 04:56] VITALS: BP 127/66; PULSE 72; RESP 19; TEMP 36.7; O2SAT 94
[2023-08-14 06:58] LABS: Hemoglobin A1C% w Est Avg Glu 6.4 % (4.0-6.0)
[2023-08-14 08:00] VITALS: BP 116/60; PULSE 75; RESP 16; TEMP 37.2; O2SAT 98
[2023-08-14] MEDS: FAMOTIDINE 20 MG TABLET PO (09:00)
[2023-08-14] MEDS: VENLAFAXINE 37.5 MG TABLET 75 MG PO ×2 (09:00→21:11)
[2023-08-14] MEDS: CLOPIDOGREL 75 MG TABLET PO (09:00)
[2023-08-14] MEDS: hydroCHLOROthiazide 25 MG TABLET PO (09:00)
[2023-08-14] MEDS: METFORMIN HCL 500 MG TABLET PO ×2 (09:00→21:12)
[2023-08-14] MEDS: DOCUSATE 100 MG CAPSULE PO ×2 (09:00→21:11)
[2023-08-14] MEDS: TIZANIDINE 4 MG TABLET 2 MG PO (09:01)
[2023-08-14] MEDS: ENOXAPARIN 40 MG/0.4 ML SYRINGE SUBCUT (09:01)
--- NOTE | 2023-08-14 10:27 | P.PN_ITS ---
Subjective Subjective Interval history: Denies pain Exam Vital Signs (past 8 hours): - 08/14/23 04:56 08/14/23 08:00 Temperature 98.1 F 98.9 F Pulse Rate 72 75 Respiratory Rate 19 16 Blood Pressure 127/66 116/60 Pulse Oximetry 94 98 Oxygen Flow Rate 0 Oxygen Delivery Method Room Air Oxygen Flow Rate 0 Narrative Exam Narrative: 87-year-old male resting comfortably in bed in no apparent distress. Hemiparesis right side with no active motion of the right upper extremity. Right lower extremity no active motion of the ankle. Left lower extremity motor function intact able to dorsiflex plantar flex. No tenderness to palpation. Bilateral palpable dorsalis pedis pulses Const General: comfortable Nutritional Appearance: average body habitus Orientation: alert Objective Labs 08/12/23 06:02 Labs: Laboratory Results - last 24 hr 08/14/23 06:25 Hemoglobin A1c 6.4 H [facility] Medical History HTN (hypertension) Depression GERD (gastroesophageal reflux disease) History of stroke Hemiparesis affecting right side as late effect of cerebrovascular accident Expressive aphasia CVA (cerebral vascular accident) Social History household members: other Smoking Status: Former smoker alcohol intake: never Assessment & Plan Assessment & Plan narrative: Right acetabulum fracture, nondisplaced Dr. Leslie has recommended nonoperative treatment with toe-touch weight-bearing on the right for 6 weeks then advance weight-bearing as tolerated after that. May require predominantly wheelchair for the next 6 weeks due to underlying hemiparesis. Patient has not been able to mobilize/ambulate with physical therapy. Once able to mobilize with toe-touch weight-bearing and walk at least 20 yd he will need a repeat x-ray. If not able to complete 20 yd toe-touch weight-bearing while inpatient he will need repeat x-rays sometime between August 19, 2023 and August 22, 2023. Xrays to include: AP pelvis and Judet views of the acetabulum try the iliac (external) oblique and obturator (internal) oblique views. If he is unable to lift himself these will need to be done at [facility] and not in the orthopedic clinic. If any displacement on repeat x-rays Dr. Sarabia recommends consultation with Dr. Liu or Dr. Cortez. Lovenox 40 mg subcutaneous daily times 35 days or oral alternative would be Xarelto 10 mg daily for 35 days he can then be converted to aspirin 81 mg b.i.d. for DVT prophylaxis. Disposition, per Internal Medicine
--- NOTE | 2023-08-14 11:44 | ST.IPCSEOM ---
Visit Care Team Role Provider Type Twila Sarabia MD Other Providers Physician Specialty: Orthopedics Orthopedic Surgery Address: [address] [place] [address], [place], [address] Email: [email or web address] Petros Junior MD Family Provider Non-Staff Primary Care Provider Specialty: Medical Address: [address] [place] [address], [id number] Email: Adarsh Duff DO Emergency Provider Physician Referring Provider Specialty: Emergency Medicine Address: [address] [place] [address], [address] Email: [email or web address] Jordi Mendoza MD Admit Provider Physician Attending Provider Specialty: Internal Medicine Address: [address] [place] [address], [id number] Email: [email or web address] Diagnoses Depression, unspecified (08/12/23) Essential (primary) hypertension (08/12/23) Hemiplegia and hemiparesis following cerebral infarction affecting right dominant side (08/12/23) Gastro-esophageal reflux disease without esophagitis (08/12/23) Aphasia (08/12/23) Unspecified fracture of right acetabulum, initial encounter for closed fracture (08/12/23) Nondisplaced dome fracture of right acetabulum, initial encounter for closed fracture (08/12/23) Fall on same level, unspecified, initial encounter (08/12/23) Other reduced mobility (08/12/23) Other specified health status (08/12/23) Personal history of transient ischemic attack (TIA), and cerebral infarction without residual deficits (08/12/23) Past Medical History (Last Reviewed 08/14/23 @ 10:29 by Roland Bass PA-C) CVA (cerebral vascular accident) (Medical) right sided deficit and expressive aphasia Depression (Medical) Expressive aphasia (Medical) GERD (gastroesophageal reflux disease) (Medical) Hemiparesis affecting right side as late effect of cerebrovascular accident (Medical) History of stroke (Medical) HTN (hypertension) (Medical) Speech-Language Pathology Swallow Evaluation SOCIAL RESEARCH ASSISTANT Clinical Swallow Evaluation Start: 08/14/23 10:35 Freq: Status: Active Protocol: Document 08/14/23 10:35 MA (Rec: 08/14/23 10:38 MA [id number]) Clinical Swallow Evaluation Session Time Visit Start Time 09:15 Visit Stop Time 09:40 Total Visit Minutes 25 Visit Information Visit Number [address] Eagle Reason for Referral Coughing on thin liquids Setting Assessment Location Acute Care Visit Type Note Type Initial evaluation Next Note Type Next Note Type Treatment Note Patient Information Identification Type Name,Wristband History Per H&P: 87 y/o with PMH of chronic right hemiparesis and expressive aphasia, from past Lt MCA CVA, who ambulates with a walker and cane, sustained ground level fall and landed on right hip. Xrays non-revealing but CT showing fracture of superior rim of Rt acetabulum. Orthopedic siebel consultant recommended non-operative management, WBTT, pain management, PT, OT. Patient aphasic on admission, w/o family members that left earlier and Hx was practically unobtainable. This morning: Patient worked with PT/OT and SNF recommended. He is max 2 person assist. [facility] where he lives assessed and are hopeful for SNF before taking him back there. Patient is aphasic and cannot tell me if he is in pain, but he appears comfortable. PMHx significant for: HTN (hypertension) Depression GERD (gastroesophageal reflux disease) History of stroke Hemiparesis affecting right side as late effect of cerebrovascular accident Expressive aphasia CVA (cerebral vascular accident) Pt referred for ST evaluation d/t OT reporting Pt observed coughing on thin liquids with wet vocal quality. ST to determine safest and most efficient least restrictive diet. Subjective Observations Pt sitting upright in bed, awake, alert. Pt with expressive aphasia at baseline . Nursing reports Pt was coughing on thin liquids when drinking liquids in bed while reclined, however has not showed signs miguel angel coughing on liquids while sitting upright in bed. Reported by Patient/Caregiver Pain/Discomfort No Other Symptoms Coughing,Difficulty swallowing liquids Current Diet Regular (IDDSI 7) Baseline Feeding Method Needs some assistance The IDDSI Framework Protocol: IDDSI.1 Objective Assessment Mental Status Alert,Responsive,Cooperative Comment Unable to complete formal oroal motor exam d/t Pt with difficulties following commands, however Pt with natural dentition, fair condition. Informal assessment indicated Pt with generalized labial and lingual weakness. Pt responded primarily by stating yeah. Food and Liquid Trials Position During Assessment Upright (90 degrees) Liquids Trialed Thin (IDDSI 0) Solid Trials Regular (IDDSI 7) Administration Type Straw,Self-feeding,Needs some assistance Oral Impairment Mildly impaired Oral Phase Comments Pt consumed won crackers and about 8 oz of thin water via straw. He required mild set up assistance, however able to eat and drink independently. For won crackers he exhibited adequate bite size and rate, prolonged mastication however adequate bolus formation and control, minimal oral stasis, extended ap transport. For thin water via straw Pt exhibited consecutive sips, adequate suction, good oral acceptance and containment. Pharyngeal Impairment Mildly impaired Pharyngeal Phase Comments For won crackers Pt demonstrated no overt s/s of aspiration or swallow difficulties. For thin water via straw Pt exhibited suspected delay in swallow, audible swallow reflex, no overt s/s of aspiration such as coughing/choking. Fatigue/Endurance Endurance WNL The IDDSI Framework Protocol: IDDSI.1 Findings Swallowing Function Oropharyngeal phase dysphagia Severity of Swallow Impairment Mildly impaired Prognosis Good Impact on Safety and Functioning No limitations Recommendations Instrumental Assessment No Swallowing Treatment Yes Frequency Daily while inpatient Recommended Solids Regular (IDDSI 7) Recommended Liquids Thin (IDDSI 0) Other Recommendations ST recommends IDDSI 7/IDDSI 0 with the below mentioned safe swallowing strategies in place . ST recommends Pt sitting upright 90 degrees for all PO intake. Safety Precautions/Swallowing 1 to 1 distant supervision, Recommendations Remain upright (90 degrees) during all oral intake,Upright position at least 30 minutes after meals,Small bites and sips when eating,Slow rate; swallow between bites, Alternate liquids and solids, Strict oral care after intake Medication Recommendations As Tolerated Education Patient/Caregiver Education Described results of evaluation Goals Short-term Goals STG 1: Patient will tolerate IDDSI 7 with no clinical s/s of dysphagia 100% of the time in order to consume least restrictive diet. STG 2: Patient will tolerate thin liquids with no clinical s/s of dysphagia 100% of the time in order to consume least restrictive diet. Long-term Goals LTG: Patient will tolerate safest and most efficient diet with no clinical s/s of aspiration or dysphagia 100% of the time in order to consume least restrictive diet .
--- NOTE | 2023-08-14 11:55 | OT.IPNOTE ---
Pt adamantly not wanting to get up at this time and wanting to rest. Pt seems to able to state yeah versus neah more consistently at this time.
--- NOTE | 2023-08-14 13:21 | P.PN_ITS ---
Subjective Subjective Interval history: Patient appears comfortable. Plan is to take him back to his [facility] tomorrow instead of SNF. Exam Vital Signs (past 8 hours): - 08/14/23 08:00 Temperature 98.9 F Pulse Rate 75 Respiratory Rate 16 Blood Pressure 116/60 Pulse Oximetry 98 Oxygen Delivery Method Room Air Oxygen Flow Rate 0 Narrative Exam Narrative: laying in bed in no distress, aphasic HENMT Other: normocephalic Resp Other: expiratory wheezes present Cardio Other: RRR GI Other: abdomen not distended Skin Other: w/o rashes Extrem Other: w/o swelling pain with Rt hip weightbearing and ROMs Psych Other: appropriate mood Objective Labs 08/12/23 06:02 Labs: Laboratory Results - last 24 hr 08/14/23 06:25 Hemoglobin A1c 6.4 H [facility] Medical History HTN (hypertension) Depression GERD (gastroesophageal reflux disease) History of stroke Hemiparesis affecting right side as late effect of cerebrovascular accident Expressive aphasia CVA (cerebral vascular accident) Social History household members: other Smoking Status: Former smoker alcohol intake: never Assessment & Plan Assessment & Plan narrative: Rt Acetabulum Fracture - due to GLF on right hip, ortho consulted - small, superior rim. Orthopedist recommended WBTT and repeating images after he is able to walk at least short distance with PT. If unable to walk will need 6 weeks in wheelchair. Then needs repeat XR's during week of 08/18 per ortho. - PT/OT rec SNF, however patient can be managed at his [facility] as he has 30/09 care - pain management -per ortho Lovenox 40 mg subcutaneous daily times 35 days or oral alternative would be Xarelto 10 mg daily for 35 days he can then be converted to aspirin 81 mg b.i.d. for DVT prophylaxis. Wheezing, now resolved -CXR normal -duonebs PRN -BRIM PLATER eval as OT had concerns for aspiration, placed recs Hx of Lt MCA / chronic Rt HP and expressive aphasia - Plavix, statin, BP management HTN - HCTZ 25 mg daily DM - IDT2, Lantus, SS, CCD GERD - Pepcid 20 mg daily Depression - Effexor 75 mg bid Constipation - laxatives DVT prophylaxis - Lovenox Dispo: Back to [facility] at 10am on 08/14.
--- NOTE | 2023-08-14 13:34 | PT.IPTN ---
Current Diagnoses Depression, unspecified (08/12/23) Essential (primary) hypertension (08/12/23) Hemiplegia and hemiparesis following cerebral infarction affecting right dominant side (08/12/23) Gastro-esophageal reflux disease without esophagitis (08/12/23) Aphasia (08/12/23) Unspecified fracture of right acetabulum, initial encounter for closed fracture (08/12/23) Nondisplaced dome fracture of right acetabulum, initial encounter for closed fracture (08/12/23) Fall on same level, unspecified, initial encounter (08/12/23) Other reduced mobility (08/12/23) Other specified health status (08/12/23) Personal history of transient ischemic attack (TIA), and cerebral infarction without residual deficits (08/12/23) Physical Therapy Treatment Note M2 PT-IP Current Condition Start: 08/12/23 13:56 Freq: NEEDED Status: Active Protocol: Document 08/12/23 11:10 AB (Rec: 08/12/23 14:18 AB [id number]) Physical Therapy Current Condition Current Condition Evaluation Date 08/12/23 Treatment Diagnosis GLF; R acetabular fx; difficulty in walking Onset Date 08/12/23 M3 PT-IP Subjective Start: 08/12/23 13:56 Freq: NEEDED Status: Active Protocol: Document 08/14/23 13:50 TS (Rec: 08/14/23 14:03 TS [id number]) Subjective Physical Therapy Visit Type Type Treatment Note Visit Start Time 13:34 Visit Stop Time 13:50 Number of BLOCK LAYER Visits 2 Physical Therapy Visit Comments Patient Comments Pt found resting in bed, is agreeable to PT. Therapy Pain Assessment Pain When Pain Assessed During Mobility Pain Present Pain Present Pain Reported M4 PT-IP Mobility and Gait Start: 08/12/23 13:56 Freq: NEEDED Status: Active Protocol: Document 08/14/23 13:50 TS (Rec: 08/14/23 14:03 TS [id number]) PT-Bed Mobility Assessment Supine to Sit Supine to Sit Moderate Assistance,Total Assistance,Head of Bed Elevated,Bedrails Scooting Scooting to Edge of Bed Maximum Assistance PT-Transfer Assessment Transfers Transfer Destination Chair Transfer Technique Squat Pivot Transfer Ability Level of Assist Moderate Assistance,2 Person Assistance Comments Mobility Comments Supine to sit ModA for uprighting trunk with handheld assist. He required MaxA for scooting to EOB with use of transfer pad. He performed a squat pivot to the chair ModA x2 with cues for sequencing. Pt required assist maintaing RLE off the ground during transfer. Pt was left in chair , all needs met. PT-Balance Assessment Sitting Balance and Reactions Static Sitting Balance Ability Good Dynamic Sitting Balance Ability Fair M5 PT-IP Objective Assessments Start: 08/12/23 13:56 Freq: NEEDED Status: Active Protocol: Document 08/12/23 11:10 AB (Rec: 08/12/23 14:18 AB [id number]) Orientation Orientation/Cognition Level of Alertness Confusional State Orientation Name Language Function Ability Expressive Aphasia,Receptive Aphasia Safety Awareness Decreased Safety Awareness Gross Range of Motion Lower Extremity ROM Assessment Right Impaired Impairments R ankle tightness with limitied DF Strength Lower Extremity Strength Assessment Right Impaired Hip 3-/5 Knee 3+/5 Ankle 0/5 Muscle Tone Muscle Tone Location Right Upper Extremity Type of Tone Hypotonicity Severity of Tone Moderate Other Assessments Other Other Assessments with hand/finger contractures M6 PT-IP Treatment Start: 08/12/23 13:56 Freq: NEEDED Status: Active Protocol: Document 08/14/23 13:50 TS (Rec: 08/14/23 14:03 TS [id number]) Physical Therapy Treatment Education Education Provided Safety M7 PT-IP Assessment and Plan Start: 08/12/23 13:56 Freq: NEEDED Status: Active Protocol: Document 08/14/23 13:50 TS (Rec: 08/14/23 14:03 TS [id number]) PT Summary Assessment and Plan Potential Rehabilitation Potential Fair Summary Impairments Pain,ROM,Strength,Balance, Coordination,Sensation,Tone, Cognition,Bed Mobility, Transfers,Gait,Activity Tolerance Progress Towards Goals Progressing Toward Goals Assessment Summary Arnulfo is making some progress with his mobility thise session. He required decreased assist to ModA x1 for bed mobility with HOB elevated. He continues to require ModA x2 for squat pivot transfer to chair. He requires assistance maintaining RLE off ground for TTWB status. PT is recommending Home 30/09 vs SNF. Goals Bed Mobility Goal Minimal Assistance Transfer Goal Moderate Assistance Days to Meet Goals 10 Frequency of Treatment Frequency Of Treatment Once a Day Treatment Plan Physical Therapy Treatment Plan Bed Mobility Training,Transfer Training,Gait Training, Therapeutic Exercise,Balance Retraining,Discharge Planning, Hot or Cold Pack,Neuromuscular Re-ed,Coordination Retraining ,Manual Therapy Precautions Other Precautions falls Weight Bearing Status Weight Bearing Status Touch Down Weight Bearing Allowed Weight Bearing Amount (enter % RLE TTWB at this time. or #) (%) Recommendations To Nursing Amount of Assist Needed Total Assistance Discharge Recommendations PT Discharge Recommendations Home with 30/09 Assist Available,Home Health,SNF Rehab,Home vs SNF Transportation Needs at Discharge Wheelchair/Cabulance
--- NOTE | 2023-08-14 15:09 | CM.DPNOTE ---
DCP Cont Patient medically ready for discharge tomorrow 6.09.30. According to Kelly at [facility], SNF bed will not be available until Friday. Placed call to nancy Arredondo who explained that caregivers Dorothy and Mirta Ashford (Dorothy P [phone]) have been taking care of patient for 10 years and feel they have what they need, both ability and needed DME, to provide the necessary care to patient while he is non weight bearing. Discussed transport and nancy Arredondo agreeable to paying for patient's cabulance ride home. Arnulfo then requested this STORE MGR coordinate ongoing details with caregiver Dorothy. Spoke with Dorothy who reported their physical address as [address] [place] [address]. Dorothy requests mirta AQUINO RN/PT/OT/DIRECTOR LEARNING, says patient has had INTERMEDIATE DESIGNER in the past and patient is maximized on that service, no longer benefits. F2F and HH order completed and HOANG Nickerson kindly agreed to send this referral to mirta AQUINO. [facility] contacted and transport arranged for 08.15.23 at 1000. [facility] planned to contact nancy Arredondo directly to discuss payment and update with transport time. Therapies clearing patient for this plan; caregivers report they have the DME to care for patient at home. Updated Kelly at [facility] with plan. In addition, for PASRR configuration consultant Lelo Lua with new DCP Plan: Discharge planned for tomorrow, home with caregivers via [facility] at 1000, mirta AQUINO RN/PT/OT/DIRECTOR LEARNING CM team following closely for coordination. ROMÁN
--- NOTE | 2023-08-14 15:36 | OT.IPNOTE ---
Able to talk to pt and family member, pt content to stay in the recliner. Plan is for pt to return to his adult family home and in which there are all equipment needs in place. No charge.
[2023-08-14 16:00] VITALS: BP 106/62; PULSE 76; RESP 16; TEMP 36.1; O2SAT 95
[2023-08-14 20:00] VITALS: BP 128/51; PULSE 58; RESP 16; TEMP 37.2; O2SAT 95
[2023-08-14] MEDS: SENNOSIDES 8.6 MG TABLET 17.2 MG PO (21:11)
[2023-08-14] MEDS: ATORVASTATIN 20 MG TABLET PO (21:12)
[2023-08-14] MEDS: INSULIN GLARGINE 100 UNIT/ML 3ML PEN 15 UNIT SUBCUT (21:21)
[2023-08-15 04:00] VITALS: BP 123/53; PULSE 64; RESP 16; TEMP 36.3; O2SAT 94
[2023-08-15 08:00] VITALS: BP 125/73; PULSE 72; RESP 17; TEMP 35.9; O2SAT 94
[2023-08-15] MEDS: METFORMIN HCL 500 MG TABLET PO (09:09)
[2023-08-15] MEDS: FAMOTIDINE 20 MG TABLET PO (09:09)
[2023-08-15] MEDS: DOCUSATE 100 MG CAPSULE PO (09:09)
[2023-08-15] MEDS: CLOPIDOGREL 75 MG TABLET PO (09:09)
[2023-08-15] MEDS: VENLAFAXINE 37.5 MG TABLET 75 MG PO (09:09)
[2023-08-15] MEDS: hydroCHLOROthiazide 25 MG TABLET PO (09:09)
[2023-08-15] MEDS: ENOXAPARIN 40 MG/0.4 ML SYRINGE SUBCUT (09:10)
[2023-08-15] MEDS: TIZANIDINE 4 MG TABLET 2 MG PO (09:10)
--- NOTE | 2023-08-15 09:42 | P.DS_ITS ---
History of Present Illness History of Present Illness Date Patient Seen: 08/15/23 Time Patient Seen: 09:42 Chief complaint: GLF Narrative: From overnight provider: 87 y/o with PMH of chronic right hemiparesis and expressive aphasia, from past Lt MCA CVA, who ambulates with a walker and cane, sustained ground level fall and landed on right hip. Xrays non-revealing but CT showing fracture of superior rim of Rt acetabulum. Orthopedic performance management consultant recommended non-operative management, WBTT, pain management, PT, OT. Patient aphasic on admission, w/o family members that left earlier and Hx was practically unobtainable. This morning: Patient worked with PT/OT and SNF recommended. He is max 2 person assist. [facility] where he lives assessed and are hopeful for SNF before taking him back there. Patient is aphasic and cannot tell me if he is in pain, but he appears comfortable. Discharge Providers Provider Date of admission: 08/12/23 00:45 Discharge Date: 08/15/23 Primary care physician: Petros Junior MD Consults: 08/12/23 00:35 Consult to Orthopedic Surgery Stat Comment: Consulting Provider: Twila Sarabia Reason for consultation: Acetabular fracture Has provider been notified: Yes 08/12/23 01:44 Consult to Occupational Therapy Evaluate & Treat Comment: Physician Instructions: Evaluate and treat Consult to Physical Therapy Evaluate & Treat Comment: Physician Instructions: Evaluate and Treat 08/12/23 08:00 Consult to [facility] DIRECTOR - Manager Pediatric Routine Comment: will likely need SNF 08/13/23 12:46 Consult to Speech Therapy Evaluate & Treat Comment: Physician Instructions: Evaluate and treat 08/14/23 12:35 Consult to Home Health Routine Comment: Reason For Exam: Home health services upon discharge Discharge provider: Daniel Cortez DO Summary Hospital Course Discharge Diagnosis: Rt Acetabulum Fracture Wheezing, now resolved Hx of Lt MCA / chronic Rt HP and expressive aphasia HTN DM GERD Depression Constipation Hospital Course: This is an 87 year old male with PMH of prior CVA with aphasia, DM, HTN, GERD, depression who was admitted with a R acetabular fracture. Orthopedist recommended toe touch weight bearing, but patient unable to ambulate. Will likely need 6 weeks wheelchair. Recommended outpatient repeat imaging as well to check on healing. His pain was controlled with tylenol only in the wheelchair only. Orthopedics recommended prescription of apixaban full dose AC on discharge for DVT prevention which was sent to [facility] local pharmacy ([facility]). Speech did evaluate for possible aspiration possibly noticed during his admission, and recommended more behavioral modifications to prevent aspiration without change of diet consistency. Time Spent with Patient Time spent: Greater than 30 minutes Exam Vital Signs (past 8 hours): - 08/15/23 04:00 08/15/23 08:00 Temperature 97.3 F L 96.6 F L Pulse Rate 64 72 Respiratory Rate 16 17 Blood Pressure 123/53 L 125/73 Pulse Oximetry 94 94 Oxygen Flow Rate 0 Oxygen Delivery Method Room Air Oxygen Flow Rate 0 Narrative Exam Narrative: laying in bed in no distress, aphasic HENMT Other: normocephalic Resp Other: expiratory wheezes present Cardio Other: RRR GI Other: abdomen not distended Skin Other: w/o rashes Extrem Other: w/o swelling pain with Rt hip weightbearing and ROMs Psych Other: appropriate mood Objective Labs 08/12/23 06:02 [facility] Medical History HTN (hypertension) Depression GERD (gastroesophageal reflux disease) History of stroke Hemiparesis affecting right side as late effect of cerebrovascular accident Expressive aphasia CVA (cerebral vascular accident) Social History household members: other Smoking Status: Former smoker alcohol intake: never Discharge Plan Discharge Plan Patient Disposition: Released, Other Other facility: adult family home Provider Discharge Comment: 87 M with R acetabular fracture, return to adult family home. Pain controlled with tylenol as needed now. No changes needed to home medications on discharge, tresiba is not a new medication. Discharge orders & Medications Discharge Orders: Discharge (Order); Ordered 08/15/23 Ordered By: Daniel Cortez Prescriptions: New insulin degludec [Tresiba FlexTouch U-100] 100 unit/mL (3 mL) insulin pen 15 unit SUBCUT BEDTIME 30 Days Qty: 15 0RF apixaban 5 mg tablet 5 mg PO BID 30 Days Qty: 60 0RF Continued clopidogrel 75 mg tablet 75 mg PO DAILY albuterol sulfate 0.63 mg/3 mL Solution For Nebulization 0.63 mg INHALATION Q4H PRN (Reason: SOB) acetaminophen 325 mg Tablet 650 mg PO Q4-6H PRN (Reason: Pain (Scale Score 1-3)) venlafaxine 75 mg tablet 75 mg PO BID tizanidine 2 mg tablet 2 mg PO BEDTIME Patient Comments: May take one more tablet as needed famotidine 20 mg tablet 20 mg PO DAILY PRN (Reason: GERD) cholecalciferol (vitamin D3) [Vitamin D3] 50 mcg (2,000 unit) Tablet 50 mcg PO DAILY atorvastatin 40 mg tablet 40 mg PO BEDTIME amlodipine 5 mg tablet 7.5 mg PO DAILY losartan 100 mg tablet 100 mg PO DAILY metformin 500 mg Tablet 500 mg PO BID Follow up/Referrals: Twila Sarabia MD [Physician] - (No follow up w/ ortho needed until xrays as follows: Once able to mobilize with toe-touch weight-bearing and walk at least 20 yd he will need a repeat x-ray. If not able to complete 20 yd toe-touch weight-bearing while inpatient he will need repeat x-rays sometime between August 19, 2023 and August 22, 2023. Xrays to include: AP pelvis and Judet views of the acetabulum try the iliac (external) oblique and obturator (internal) oblique views. If he is unable to lift himself these will need to be done at [facility] and not in the orthopedic clinic. If any displacement on repeat x-rays Dr. Sarabia recommends consultation with Dr. Liu or Dr. Cortez.) Petros Junior MD [Primary Care Provider] - Discharge Health Status Multidrug resistant organism: No MDRO Precautions: [place] Diet/Activity/Treatments Diet: Diet as Tolerated, Regular and Carb-consistent/Diabetic Liquid consistency: Normal/Thin Food texture: Regular Diet comment: As tolerated no restrictions Activity: Toe-touch weight-bearing on the right for 6 weeks then advance weight- bearing as tolerated after that. May require predominantly wheelchair for the next 6 weeks due to underlying hemiparesis. Discharge Data Primary Care Provider: Petros Junior
--- NOTE | 2023-08-15 10:52 | PC.NURSE ---
Patient is alert this a.m. He denies any pain without movement. VSS, afebrile on RA. He is cleared medically for discharge home today with follow up with ortho. Son at bedside assisting with discharge and reviews discharge instructions. He verbalizes understanding of medications, activity limitations, as well as follow up plan with ortho. Cabulance transporter arrives at 10 a.m. to transport patient. Patient is patrizia lifted to wheel chair and discharges at approximately 1015 this a.m. to adult family home where he resides.
--- NOTE | 2023-08-15 12:04 | CM.DPNOTE ---
DCP Cont Patient has been discharged home w/caregivers Dorothy Munson [phone] and Mirta Ashford. Son Arnulfo here to help get patient situated. [facility] here this morning at 1000 to provide wheelchair transport. Will ask that HOANG Nickerson, contact mirta AQUINO to update. Plan: Discharge home w/caregivers to their [facility], [facility] [address] [address] ([facility] known as [facility]), w/mirta AQUINO RN/PT/OT/LEG MAN via [facility]. Patient and family/caregivers aware and agreeable to plan. ROMÁN
== END 2023-08-15 10:15 | disposition home health service (06) | DRG 536 ==
LOC: ED 08-12 00:45 → AC 08-12 01:22
PROVIDERS: Student in an Organized Health Care Education/Training Program; Admitting Provider Internal Medicine; Emergency Provider Emergency Medicine; Family Provider Family Medicine; PCP Family Medicine; Referring Provider Emergency Medicine; Visit Provider Internal Medicine
DX: S32.484A Nondisplaced dome fracture of right acetabulum, initial encounter for closed fracture (principal); I69.351 Hemiplegia and hemiparesis following cerebral infarction affecting right dominant side; I69.320 Aphasia following cerebral infarction; I10 Essential (primary) hypertension; E11.9 Type 2 diabetes mellitus without complications; K21.9 Gastro-esophageal reflux disease without esophagitis; F32.A Depression, unspecified; K59.00 Constipation, unspecified; R06.2 Wheezing; W18.30XA Fall on same level, unspecified, initial encounter; Z79.02 Long term (current) use of antithrombotics/antiplatelets; Z79.84 Long term (current) use of oral hypoglycemic drugs; Z87.891 Personal history of nicotine dependence
CPT/HCPCS: 36415; 71045; 72192; 73502; 80048; 82962; 83036; 83880; 92610; 94640; 97163; 97166; 97530; 99283; 99284; A9270; J1650

== ENCOUNTER 2023-11-13 13:33 | Emergency (ER) | payer MEDICARE, OTHER, SELFPAY ==
[2023-08-12 00:53] VITALS: BMI 33.2
[2023-11-13] VITALS (15 sets, daily range): BP systolic 114–140; BP diastolic 58–77; PULSE 52–68; RESP 15–28; TEMP 36.3–36.8; O2SAT 96–98
--- NOTE | 2023-11-13 13:57 | DI.RAD.S_ITS ---
PROCEDURE: XR CHEST 1V INDICATIONS: Shortness of breath TECHNIQUE: One view of the chest was acquired. COMPARISON: [facility], CR, XR CHEST 1V, 08/13/2023, 12:58. FINDINGS: Surgical changes and devices: None. Lungs and pleura: Lungs are clear. No pleural effusions or pneumothorax. Mediastinum: Mediastinal contours appear normal. Heart size is normal. Bones and chest wall: No suspicious bony lesions. Overlying soft tissues appear unremarkable. IMPRESSION: No acute pulmonary process. Dictated by: Uzma James M.D. on 11/13/2023 at 15:36 Approved by: Uzma James M.D. on 11/13/2023 at 15:36
--- NOTE | 2023-11-13 14:23 | EKG_ITS ---
[facility] [address] [place] [address] Test Date: 2023-11-13 Pat Name: Dhruv Hernandez Department: Room: Gender: Male Transitional Nurse: : 1935 Requested By: Order Number: [id number] Reading MD: Rogers Fox MD Measurements Intervals [place] Rate: 59 P: 39 MA: 198 QRS: 78 QRSD: 128 T: 41 QT: 460 QTc: 455 Interpretive Statements Sinus bradycardia Right bundle branch block (new) Electronically Signed On 11-13-2023 16:27:35 PDT by Rogers Fox MD
[2023-11-13 14:25] LABS: Add Manual Diff / Slide Review NO; Basophils Absolute Auto 100 /uL (0-100); Basophils Percent Auto 0.8 % (0-2); Eosinophils Absolute Auto 800 /uL (0-450); Eosinophils Percent Auto 8.5 % (2-4); Hematocrit 37.3 % (41-53); Hemoglobin 12.8 g/dL (13.5-17.5); Lymphocytes Absolute Auto 2100 /uL (1100-4500); Lymphocytes Percent Auto 23.6 % (25-40); Mean Corpuscular HGB Conc 34.2 % (30-36); Mean Corpuscular Hemoglobin 30.5 PG (26-34); Mean Corpuscular Volume 89.4 fL (80-100); Monocytes Absolute Auto 500 /uL (0-900); Monocytes Percent Auto 5.9 % (3-14); Neutrophils Absolute Auto 5500 /uL (1500-7000); Neutrophils Percent Auto 61.2 % (50-75); Platelet Count 257 X10^3/uL (150-400); Red Blood Cell Count 4.18 X10^6/uL (4.5-5.9); Red Cell Distribution Width 14.5 % (11.6-14.8)
[2023-11-13 14:38] LABS: Prothrombin Time 11.6 SECONDS (9.4-12.5)
[2023-11-13 14:40] LABS: Alanine Aminotransferase 28 IU/L (<50); Albumin 4.5 g/dL (3.5-5.0); Albumin Globulin Ratio 1.3 (1.0-2.8); Alkaline Phosphatase 77 U/L (38-126); Aspartate Aminotransferase 27 IU/L (17-59); Bilirubin Total 0.7 mg/dL (0.2-1.3); Blood Urea Nitrogen 29 mg/dL (9-20); Calcium 9.2 mg/dL (8.4-10.2); Carbon Dioxide 19 mmol/L (22-32); Chloride 106 mmol/L (98-107); Estimated Glomerular Filt Rate 47 mL/min (>60); Globulin 3.4 g/dL (1.7-4.1); Glucose 183 mg/dL (80-110); HEMOLYSIS < 15 (0-50); Lactate (Lactic Acid) 2.1 mmol/L (0.7-2.1); Potassium 4.3 mmol/L (3.4-5.1); Sodium 137 mmol/L (137-145); Total Protein 7.9 g/dL (6.3-8.2)
[2023-11-13 14:52] LABS: NT-proBNP (BNP-Adult 18+) 841 pg/mL (<450); Troponin I < 0.012 ng/mL (0.01-0.034)
[2023-11-13 15:57] LABS: Reflexed Lactate in 2 Hours Y
[2023-11-13 16:27] LABS: Lactate 2HR (Lactic Acid Rflx) 1.5 mmol/L (0.7-2.1)
--- NOTE | 2023-11-13 17:01 | ED.GENADULT ---
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 Some swelling to the legs noted as well. No recent changes in medication. He lives with , who has not had any recent respiratory illness symptoms. No grandchildren or other persons with respiratory illness symptoms have been visiting. Related Data Home Medications Medication Instructions Recorded Confirmed acetaminophen 325 mg tablet 650 mg PO Q4-6H PRN Pain (Scale 10/06/19 08/12/23 Score 1-3) albuterol sulfate 0.63 mg/3 mL 0.63 mg inhalation Q4H PRN SOB 10/06/19 08/12/23 solution for nebulization cholecalciferol (vitamin D3) 50 50 mcg PO DAILY 10/06/19 08/12/23 mcg (2,000 unit) tablet (Vitamin D3) clopidogrel 75 mg tablet 75 mg PO DAILY 10/06/19 08/12/23 famotidine 20 mg tablet 20 mg PO DAILY PRN GERD 10/06/19 08/12/23 tizanidine 2 mg tablet 2 mg PO BEDTIME 10/06/19 08/12/23 venlafaxine 75 mg tablet 75 mg PO BID 10/06/19 08/12/23 amlodipine 5 mg tablet 7.5 mg PO DAILY 08/12/23 08/12/23 atorvastatin 40 mg tablet 40 mg PO BEDTIME 08/12/23 08/12/23 losartan 100 mg tablet 100 mg PO DAILY 08/12/23 08/12/23 metformin 500 mg tablet 500 mg PO BID 08/13/23 08/13/23 Previous Rx's Medication Instructions Recorded prednisone 20 mg tablet 40 mg (2 x 20 mg) PO DAILY 5 days 11/13/23 #10 tabs Allergies Allergy/AdvReac Type Severity Reaction Status Date / Time aspirin Allergy Verified 08/11/23 20:17 Penicillins Allergy Verified 08/11/23 20:17 Review of Systems Review of Systems Narrative: see HPI Patient History Medical History HTN (hypertension) Depression GERD (gastroesophageal reflux disease) History of stroke Hemiparesis affecting right side as late effect of cerebrovascular accident Expressive aphasia CVA (cerebral vascular accident) Social History household members: other Smoking Status: Former smoker alcohol intake: never Smoking Status: Former smoker Substance Use Type: does not use Exam Narrative Exam Narrative: GENERAL: Well-developed patient, in mild distress. HEAD: Atraumatic. Normocephalic. EYES: Pupils equal round and reactive. Extraocular motions intact. No scleral icterus. No injection or drainage. ENT: Nose without bleeding, purulent drainage. Throat without erythema, tonsillar hypertrophy or exudate. Airway patent. NECK: Trachea midline. Non tender CARDIOVASCULAR: Regular rate and rhythm without murmurs, gallops, or rubs. RESPIRATORY: Audible wheezing, some suprasternal retractions, alert, no crackles, some end expiratory wheezes, speech not evaluated due to aphasia GASTROINTESTINAL: Abdomen soft, non-tender, nondistended. EXTREMITIES: No edema or joint tenderness. Slight edema to both feet. BACK: Nontender without deformity or crepitance. No flank tenderness. NEURO: AOx3. Aphasia, follows direction, does not speak. Has right hemiparesis with some atrophy upper extremity noted, wearing right AFO. SKIN: No rash or erythema of visible areas Initial Vital Signs Initial Vital Signs: Vital Signs Temperature 98.3 F 11/13/23 13:51 Pulse Rate 58 L 11/13/23 13:51 Respiratory Rate 18 11/13/23 13:51 Blood Pressure 124/60 11/13/23 13:51 Pulse Oximetry 98 11/13/23 13:51 Oxygen Delivery Method Room Air 11/13/23 13:51 Course Orders Ordered: ED Orders 11/13/23 13:57 XR chest 1V Stat EKG-12 Lead Stat Measure peak expiratory flow ONCE RT Consult Eval and Treat NOW 11/13/23 14:14 Complete Blood Count AUTO DIFF Stat Comprehensive Metabolic Panel Stat Lactate (Lactic Acid) Stat NT-proBNP (BNP-Adult 18+) Stat Prothrombin Time INR Stat Troponin I Stat Discontinued Medications Albuterol (Albuterol 2.5 Mg/3 Ml Neb (Adult)) 2.5 mg INH NOW ONE Stop: 11/13/23 19:03 Last Admin: 11/13/23 19:21 Dose: 2.5 mg Documented By: JESICA Albuterol/Ipratropium (Albuterol/Ipratropium 3 Ml Ampul) 9 ml INH NOW ONE Stop: 11/13/23 17:23 Last Admin: 11/13/23 17:18 Dose: 9 ml Documented By: MANUELA Furosemide (Furosemide 40 Mg/4 Ml Vial) 40 mg IV NOW ONE Stop: 11/13/23 16:58 Last Admin: 11/13/23 17:12 Dose: 40 mg Documented By: Methylprednisolone (Methylprednisolone 125 Mg/2 Ml Vial) 125 mg IV NOW ONE Stop: 11/13/23 17:20 Last Admin: 11/13/23 17:22 Dose: 125 mg Documented By: Vital Signs Vital signs: Vital Signs - 8 hr 11/13/23 13:51 11/13/23 15:54 11/13/23 15:56 Temperature 98.3 F 97.3 F L Pulse Rate 58 L 64 55 L Respiratory Rate 18 15 Blood Pressure 124/60 117/58 L Pulse Oximetry 98 97 96 Oxygen Delivery Method Room Air Room Air Oxygen Flow Rate Fraction of Inspired Oxygen 11/13/23 15:56 11/13/23 15:56 11/13/23 16:00 Temperature Pulse Rate 58 L Respiratory Rate 16 Blood Pressure 114/77 117/58 L Pulse Oximetry 96 Oxygen Delivery Method Oxygen Flow Rate Fraction of Inspired Oxygen 11/13/23 16:00 11/13/23 16:30 11/13/23 16:30 Temperature Pulse Rate 55 L 52 L Respiratory Rate 16 28 H Blood Pressure 128/63 Pulse Oximetry 97 96 Oxygen Delivery Method Oxygen Flow Rate Fraction of Inspired Oxygen 11/13/23 17:00 11/13/23 17:01 11/13/23 17:01 Temperature Pulse Rate 56 L 57 L Respiratory Rate 18 18 Blood Pressure 140/61 Pulse Oximetry 96 97 Oxygen Delivery Method Oxygen Flow Rate Fraction of Inspired Oxygen 11/13/23 17:18 11/13/23 17:30 11/13/23 17:31 Temperature Pulse Rate 56 L 59 L Respiratory Rate 18 18 Blood Pressure 126/59 L Pulse Oximetry 97 97 Oxygen Delivery Method Room Air Oxygen Flow Rate 0 Fraction of Inspired Oxygen 21 11/13/23 17:31 11/13/23 18:00 11/13/23 18:30 Temperature Pulse Rate 58 L 61 63 Respiratory Rate 19 19 22 Blood Pressure Pulse Oximetry 98 98 98 Oxygen Delivery Method Oxygen Flow Rate Fraction of Inspired Oxygen 11/13/23 19:00 11/13/23 19:27 11/13/23 19:34 Temperature 97.5 F L Pulse Rate 64 68 Respiratory Rate 18 18 Blood Pressure Pulse Oximetry 97 98 Oxygen Delivery Method Room Air Room Air Oxygen Flow Rate Fraction of Inspired Oxygen Medical Decision Making Lab Data 11/13/23 14:14 11/13/23 14:14 Labs: Lab Results 11/13/23 11/13/23 Range/Units 14:14 16:07 WBC 9.0 (4.5-11.0) X10^3/uL RBC 4.18 L (4.5-5.9) X10^6/uL Hgb 12.8 L (13.5-17.5) g/dL Hct 37.3 L (41-53) % MCV 89.4 (80-100) fL MCH 30.5 (26-34) PG MCHC 34.2 (30-36) % RDW 14.5 (11.6-14.8) % Plt Count 257 (150-400) X10^3/uL Neut % (Auto) 61.2 (50-75) % Lymph % (Auto) 23.6 L (25-40) % Vance % (Auto) 5.9 (3-14) % Eos % (Auto) 8.5 H (2-4) % Baso % (Auto) 0.8 (0-2) % Neut # (Auto) 5500 (8602-6576) /uL Lymph # (Auto) 2100 (9494-2608) /uL Vance # (Auto) 500 (0-900) /uL Eos # (Auto) 800 H (0-450) /uL Baso # (Auto) 100 (0-100) /uL PT 11.6 (9.4-12.5) SECONDS INR 1.0 (0.9-1.3) Sodium 137 (137-145) mmol/L Potassium 4.3 (3.4-5.1) mmol/L Chloride 106 (98-107) mmol/L Carbon Dioxide 19 L (22-32) mmol/L BUN 29 H (9-20) mg/dL Creatinine 1.45 H (0.66-1.25) mg/dL Estimated GFR 47 L (>60) mL/min BUN/Creatinine Ratio 20.0 (6-22) Glucose 183 H (80-110) mg/dL Lactate 2.1 1.5 (0.7-2.1) mmol/L Calcium 9.2 (8.4-10.2) mg/dL Total Bilirubin 0.7 (0.2-1.3) mg/dL AST 27 (17-59) IU/L ALT 28 (<50) IU/L Alkaline Phosphatase 77 (38-126) U/L Troponin I < 0.012 (0.01-0.034) ng/mL NT-Pro-B Natriuret Pep 841 H (<450) pg/mL Total Protein 7.9 (6.3-8.2) g/dL Albumin 4.5 (3.5-5.0) g/dL Globulin 3.4 (1.7-4.1) g/dL Albumin/Globulin Ratio 1.3 (1.0-2.8) ECG Data Attestation: I personally reviewed and interpreted this ECG as follows: Interpretation: Sinus bradycardia with rate 59, no obvious ST segment elevation or depression changes. Right bundle branch block noted. SC 198, QRS 128, QTC 455. [facility] Narrative Medical decision making narrative: 88-year-old with history of COPD, right hemiparesis, previous aspiration pneumonia, with 5 days duration of cough and increasing shortness of breath. Marked audible wheezing, however 95-97% on room air. History of aphasia and right hemiparesis post stroke noted. Screening chest x-ray shows no obvious aspiration or other infiltrate pattern. Respiratory panel requested, pending results at this time. EKG shows sinus bradycardia. Initial troponin negative. BNP mildly elevated. IV Lasix dose given. IV Solu-Medrol. Continuous SVN DuoNeb Resipratory panel negative. Improved, still slight wheeze, Albuterol SVN. Home neb machine in place with Rx Albut to use if needed. Prednisone pulse Rx sent to his pharmacy. Home with family Discharge Plan Departure Patient Disposition: Home Clinical Impression: Acute dyspnea, COPD exacerbation Activity Restrictions/Additional Instructions: Recent cough and increased shortness of breath, history of stroke with right-sided weakness, prior aspiration pneumonia problems, chest x-ray did not show aspiration or other pneumonia changes at this time. COVID and influenza negative. Wheezing on exam, although oxygenation was adequate on room air. IV steroids Solu-Medrol given, breathing treatments with albuterol and ipratropium given. Wheezing decreased. Further steroids to take by mouth. You have breathing machine and medication to use at home, give breathing treatments every 4-6 hours at home. Consider recheck with your regular provider on Friday. Return to this/nearest emergency department for any change worsening symptoms or any concerns prior Prescriptions: New prednisone 20 mg tablet 40 mg PO DAILY 5 Days Qty: 10 0RF No Action clopidogrel 75 mg tablet 75 mg PO DAILY albuterol sulfate 0.63 mg/3 mL Solution For Nebulization 0.63 mg INHALATION Q4H PRN (Reason: SOB) acetaminophen 325 mg Tablet 650 mg PO Q4-6H PRN (Reason: Pain (Scale Score 1-3)) venlafaxine 75 mg tablet 75 mg PO BID tizanidine 2 mg tablet 2 mg PO BEDTIME Patient Comments: May take one more tablet as needed famotidine 20 mg tablet 20 mg PO DAILY PRN (Reason: GERD) cholecalciferol (vitamin D3) [Vitamin D3] 50 mcg (2,000 unit) Tablet 50 mcg PO DAILY atorvastatin 40 mg tablet 40 mg PO BEDTIME amlodipine 5 mg tablet 7.5 mg PO DAILY losartan 100 mg tablet 100 mg PO DAILY metformin 500 mg Tablet 500 mg PO BID Referrals: Petros Junior MD [Primary Care Provider] - Stand Alone Forms: Patient Portal/API
[2023-11-13] MEDS: FUROSEMIDE 40 MG/4 ML VIAL IV (17:12)
[2023-11-13] MEDS: ALBUTEROL/IPRATROPIUM 3 ML AMPUL 9 ML INH (17:18)
[2023-11-13] MEDS: methylPREDNISolone 125 MG/2 ML VIAL IV (17:22)
[2023-11-13] MEDS: ALBUTEROL 2.5 MG/3 ML NEB (ADULT) INH (19:21)
== END 2023-11-13 20:07 | disposition home or self-care (01) ==
PROVIDERS: Emergency Provider Emergency Medicine; Family Provider Family Medicine; PCP Family Medicine
DX: J44.1 Chronic obstructive pulmonary disease with (acute) exacerbation (principal); R06.00 Dyspnea, unspecified; R00.1 Bradycardia, unspecified; Z79.899 Other long term (current) drug therapy
CPT/HCPCS: 36415; 71045; 80053; 83605; 83880; 84484; 85025; 85610; 93005; 93010; 94640; 96374; 96375; 99284; J1940; J2919; J7613

== ENCOUNTER 2024-01-26 17:36 | Emergency (ER) | payer MEDICARE, OTHER, SELFPAY ==
[2023-08-12 00:53] VITALS: BMI 33.2
[2024-01-26] VITALS (14 sets, daily range): BP systolic 112–154; BP diastolic 59–67; PULSE 67–74; RESP 20–36; TEMP 37.6–37.9; O2SAT 96–98
--- NOTE | 2024-01-26 17:52 | EKG_ITS ---
[address] [address] Test Date: 2024-01-26 Pat Name: Dhruv Hernandez Department: Room: Gender: Male Surveillance Systems Analyst: JEANETTE : 1935 Requested By: Order Number: [id number] Reading MD: Daniel Cortez Measurements Intervals [place] Rate: 75 P: 47 IA: 168 QRS: 70 QRSD: 122 T: 57 QT: 406 QTc: 453 Interpretive Statements Sinus rhythm with premature atrial complexes Right bundle branch block Cannot rule out Inferior infarct , age undetermined Electronically Signed On 01-28-2024 19:03:15 PST by Daniel Cortez
--- NOTE | 2024-01-26 18:02 | DI.RAD.S_ITS ---
PROCEDURE: XR CHEST 1V INDICATIONS: suspected sepsis TECHNIQUE: One view of the chest was acquired. COMPARISON: [facility], CR, XR CHEST 1V, 11/13/2023, 14:39. [facility], CR, XR CHEST 1V, 08/13/2023, 12:58. FINDINGS: Surgical changes and devices: None. Lungs and pleura: Small left pleural effusion with left basilar atelectasis. Right lung is clear. No pneumothorax. Mediastinum: Cardiac silhouette is enlarged. Bones and chest wall: No suspicious bony lesions. Overlying soft tissues appear unremarkable. IMPRESSION: Cardiomegaly. Small left pleural effusion with left basilar atelectasis. Approved by: Nnamdi Dewitt M.D. on 01/26/2024 at 19:34
[2024-01-26 18:16] LABS: Hematocrit 38.2 % (41-53); Hemoglobin 12.9 g/dL (13.5-17.5); Mean Corpuscular HGB Conc 33.8 % (30-36); Mean Corpuscular Hemoglobin 30.3 PG (26-34); Mean Corpuscular Volume 89.6 fL (80-100); Platelet Count 225 X10^3/uL (150-400); Red Blood Cell Count 4.26 X10^6/uL (4.5-5.9); Red Cell Distribution Width 14.3 % (11.6-14.8); White Blood Cell Count 20.2 X10^3/uL (4.5-11.0)
[2024-01-26 18:17] LABS: Add Manual Diff / Slide Review YES
[2024-01-26 18:22] LABS: INR 1.2 (0.9-1.3); Prothrombin Time 13.5 SECONDS (9.4-12.5)
[2024-01-26 18:25] LABS: PTT Partial Thromboplastin Tim 34 SECONDS (25.1-36.5)
[2024-01-26 18:29] LABS: Lactate (Lactic Acid) 1.7 mmol/L (0.7-2.1)
[2024-01-26 18:30] LABS: Alanine Aminotransferase 29 IU/L (<50); Albumin 4.1 g/dL (3.5-5.0); Albumin Globulin Ratio 1.1 (1.0-2.8); Alkaline Phosphatase 72 U/L (38-126); Aspartate Aminotransferase 30 IU/L (17-59); BUN Creatinine Ratio 15.4 (6-22); Bilirubin Total 1.8 mg/dL (0.2-1.3); Blood Urea Nitrogen 26 mg/dL (9-20); Calcium 9.2 mg/dL (8.4-10.2); Carbon Dioxide 20 mmol/L (22-32); Chloride 102 mmol/L (98-107); Creatine Kinase 108 U/L (55-170); Estimated Glomerular Filt Rate 39 mL/min (>60); Globulin 3.6 g/dL (1.7-4.1); Glucose 181 mg/dL (80-110); HEMOLYSIS < 15 (0-50); Lipase 34 U/L (23-300); Potassium 4.3 mmol/L (3.4-5.1); Sodium 130 mmol/L (137-145); Total Protein 7.7 g/dL (6.3-8.2)
[2024-01-26 18:42] LABS: NT-proBNP (BNP-Adult 18+) 2970 pg/mL (<450); Troponin I 0.016 ng/mL (0.01-0.034)
[2024-01-26 18:47] LABS: Neutrophils Absolute Manual 16362 /uL (3000-5900); Procalcitonin 0.422 ng/mL (<0.5); Total Cells Counted 100
[2024-01-26 18:48] LABS: RBC Morphology Normal Morphology
[2024-01-26] MEDS: LIDOCAINE 2% (GLYDO) 6 ML GEL TOP ×2 (19:28→20:03)
[2024-01-26] MEDS: cefTRIAXone 1,000 MG in SODIUM CHLORIDE 0.9% 100 ML 200 MG IV (19:51)
--- NOTE | 2024-01-26 19:52 | ED_ITS ---
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 Son is at bedside as tremor historian he is his DPOA and reports he noticed increasing dyspnea yesterday. He is also maybe some left abdominal pain. Patient does appear to be in some mild respiratory distress at this time but is not actually hypoxic. He resides at a assisted living facility in [place]. Related Data Home Medications Medication Instructions Recorded Confirmed acetaminophen 325 mg tablet 650 mg PO Q4-6H PRN Pain (Scale 10/06/19 08/12/23 Score 1-3) albuterol sulfate 0.63 mg/3 mL 0.63 mg inhalation Q4H PRN SOB 10/06/19 08/12/23 solution for nebulization cholecalciferol (vitamin D3) 50 50 mcg PO DAILY 10/06/19 08/12/23 mcg (2,000 unit) tablet (Vitamin D3) clopidogrel 75 mg tablet 75 mg PO DAILY 10/06/19 08/12/23 famotidine 20 mg tablet 20 mg PO DAILY PRN GERD 10/06/19 08/12/23 tizanidine 2 mg tablet 2 mg PO BEDTIME 10/06/19 08/12/23 venlafaxine 75 mg tablet 75 mg PO BID 10/06/19 08/12/23 amlodipine 5 mg tablet 7.5 mg PO DAILY 08/12/23 08/12/23 atorvastatin 40 mg tablet 40 mg PO BEDTIME 08/12/23 08/12/23 losartan 100 mg tablet 100 mg PO DAILY 08/12/23 08/12/23 metformin 500 mg tablet 500 mg PO BID 08/13/23 08/13/23 Allergies Allergy/AdvReac Type Severity Reaction Status Date / Time aspirin Allergy Verified 08/11/23 20:17 Penicillins Allergy Verified 08/11/23 20:17 Patient History Medical History HTN (hypertension) Depression GERD (gastroesophageal reflux disease) History of stroke Hemiparesis affecting right side as late effect of cerebrovascular accident Expressive aphasia CVA (cerebral vascular accident) Social History household members: other Smoking Status: Former smoker alcohol intake: never Smoking Status: Former smoker Substance Use Type: does not use Exam Initial Vital Signs Initial Vital Signs: Vital Signs Temperature 100.3 F H 01/26/24 17:51 Pulse Rate 71 01/26/24 17:51 Respiratory Rate 22 01/26/24 17:51 Blood Pressure 112/64 01/26/24 17:51 Pulse Oximetry 96 01/26/24 17:51 Oxygen Delivery Method Room Air 01/26/24 17:51 GENERAL: Alert 88-year-old male and in no acute distress. HEENT: Head atraumatic,EOMI, pupils reactive, face symmetric, moist mucous membranes CARDIOVASCULAR: Regular rate and rhythm without murmurs, rubs or gallops. RESPIRATORY: Decreased breath sounds bilaterally obvious dyspnea tachypnea no rales or rhonchi ABDOMEN: Soft, mild left upper quadrant mild distention : Difficult Barnett catheter, but Barnett in no significant hematuria EXTREMITIES: Normal range of motion, no clubbing or edema. Neurovascularly intact NEUROLOGICAL: Chronic right-sided weakness moving left side without difficulty at baseline per son SKIN: Warm, dry, no laceration, no petechiae, no rashes or lesions. Course Orders Ordered: ED Orders 01/26/24 18:00 BNP [NT-proBNP (BNP-Adult 18+)] Stat Complete Blood Count AUTO DIFF Stat Comprehensive Metabolic Panel Stat Lactate (Lactic Acid) Stat Lipase Stat PTT Partial Thromboplastin [place] Stat Procalcitonin Stat Prothrombin Time INR Stat Troponin & CK Cardiac Panel Stat 01/26/24 18:02 XR chest 1V Stat EKG-12 Lead Stat RT Consult Eval and Treat NOW 01/26/24 18:10 Respiratory Panel (Film Array) Stat 01/26/24 18:25 Blood Culture Stat 01/26/24 20:19 Urine Microscopic Stat 01/26/24 20:47 EKG-12 Lead Stat 01/26/24 21:00 Troponin & CK Cardiac Panel Stat 01/26/24 21:07 EKG-12 Lead Stat Discontinued Medications Albuterol/Ipratropium (Albuterol/Ipratropium 3 Ml Ampul) 3 ml INH NOW ONE Stop: 01/26/24 20:39 Last Admin: 01/26/24 20:53 Dose: 3 ml Documented By: MANUELA Clopidogrel Bisulfate (Clopidogrel 75 Mg Tablet) 300 mg PO NOW ONE Stop: 01/26/24 20:57 Last Admin: 01/26/24 21:09 Dose: Not Given Documented By: JEFF Furosemide (Furosemide 40 Mg/4 Ml Vial) 40 mg IV NOW ONE Stop: 01/26/24 20:39 Last Admin: 01/26/24 20:43 Dose: 40 mg Documented By: GERA Heparin Sodium (Porcine) (Heparin 5,000 Unit/Ml Vial) 5,000 unit IV NOW ONE Stop: 01/26/24 20:56 Last Admin: 01/26/24 21:07 Dose: 5,000 unit Documented By: BOB Ceftriaxone Sodium 1,000 mg/ (Sodium Chloride) 100 mls @ 200 mls/hr IV NOW ONE Stop: 01/26/24 18:58 Last Infusion: 01/26/24 20:25 Dose: Infused Documented By: Admin: 01/26/24 19:51 Dose: 200 mls/hr Documented By: CLAUDIA Heparin Sodium/Dextrose (Heparin Drip) 25,000 unit in 500 mls @ 23.188 mls/hr IV CONT LANDY; Protocol Last Admin: 01/26/24 21:20 Dose: Not Given Documented By: BOB Heparin Sodium/Dextrose (Heparin Drip) 25,000 unit in 500 mls @ 20 mls/hr IV CONT LANDY; Protocol Last Admin: 01/26/24 21:18 Dose: 1,000 unit/hr, 20 mls/hr Documented By: GERA Co-signed By: BOB Lidocaine HCl (Lidocaine 2% (Glydo) 6 Ml Gel) 6 ml TOP NOW ONE Stop: 01/26/24 19:27 Last Admin: 01/26/24 19:28 Dose: 6 ml Documented By: GERA Lidocaine HCl (Lidocaine 2% (Glydo) 6 Ml Gel) 6 ml TOP NOW ONE Stop: 01/26/24 20:02 Last Admin: 01/26/24 20:03 Dose: 6 ml Documented By: GERA Ondansetron HCl (Ondansetron 4 Mg/2 Ml Inj) 4 mg IV NOW PRN PRN Reason: Nausea And Vomiting Ondansetron HCl (Ondansetron 4 Mg Odt) 4 mg SL NOW PRN PRN Reason: Nausea And Vomiting Vital Signs Vital signs: Vital Signs - 8 hr 01/26/24 17:51 01/26/24 18:02 01/26/24 18:30 Temperature 100.3 F H Pulse Rate 71 69 68 Respiratory Rate 22 25 H 22 Blood Pressure 112/64 Pulse Oximetry 96 97 97 Oxygen Delivery Method Room Air Oxygen Flow Rate Fraction of Inspired Oxygen 01/26/24 18:30 01/26/24 19:00 01/26/24 19:01 Temperature Pulse Rate 68 68 Respiratory Rate 31 H 25 H Blood Pressure 131/63 Pulse Oximetry 97 97 Oxygen Delivery Method Oxygen Flow Rate Fraction of Inspired Oxygen 01/26/24 19:01 01/26/24 19:30 01/26/24 19:31 Temperature Pulse Rate 67 67 Respiratory Rate 34 H 36 H Blood Pressure 151/66 H Pulse Oximetry 97 97 Oxygen Delivery Method Oxygen Flow Rate Fraction of Inspired Oxygen 01/26/24 19:31 01/26/24 20:00 01/26/24 20:00 Temperature Pulse Rate 67 Respiratory Rate 31 H Blood Pressure 135/63 126/59 L Pulse Oximetry 98 Oxygen Delivery Method Oxygen Flow Rate Fraction of Inspired Oxygen 01/26/24 20:30 01/26/24 20:36 01/26/24 20:36 Temperature Pulse Rate 70 71 Respiratory Rate 25 H 27 H Blood Pressure 154/67 H Pulse Oximetry 98 98 Oxygen Delivery Method Oxygen Flow Rate Fraction of Inspired Oxygen 01/26/24 20:40 01/26/24 20:53 01/26/24 21:00 Temperature 99.6 F Pulse Rate 72 71 Respiratory Rate 20 29 H Blood Pressure Pulse Oximetry 96 96 Oxygen Delivery Method Room Air Oxygen Flow Rate 0 Fraction of Inspired Oxygen 21 01/26/24 21:07 01/26/24 21:07 Temperature Pulse Rate 74 Respiratory Rate 27 H Blood Pressure 144/65 H Pulse Oximetry 97 Oxygen Delivery Method Oxygen Flow Rate Fraction of Inspired Oxygen MDM - Altered Mental Status Lab Data 01/26/24 18:00 01/26/24 18:00 Labs: Lab Results 01/26/24 01/26/24 01/26/24 Range/Units 18:00 18:10 20:19 WBC 20.2 H (4.5-11.0) X10^3/uL RBC 4.26 L (4.5-5.9) X10^6/uL Hgb 12.9 L (13.5-17.5) g/dL Hct 38.2 L (41-53) % MCV 89.6 (80-100) fL MCH 30.3 (26-34) PG MCHC 33.8 (30-36) % RDW 14.3 (11.6-14.8) % Plt Count 225 (150-400) X10^3/uL Neut % (Auto) Not Reportable Lymph % (Auto) Not Reportable [place] % (Auto) Not Reportable Eos % (Auto) Not Reportable Baso % (Auto) Not Reportable Lymph # (Auto) Not Reportable [place] # (Auto) Not Reportable Baso # (Auto) Not Reportable Total Counted 100 Seg Neutrophils % 78.0 H (38-70) % Band Neutrophils % 3.0 (3-7) % Lymphocytes % (Manual) 11.0 L (25-45) % Monocytes % (Manual) 7.0 (2-11) % Basophils % (Manual) 1.0 (0-1) % Neutrophils # (Manual) 09476 H (4224-4683) /uL RBC Morphology Normal morphology PT 13.5 H (9.4-12.5) SECONDS INR 1.2 (0.9-1.3) APTT 34 (25.1-36.5) SECONDS Sodium 130 L (137-145) mmol/L Potassium 4.3 (3.4-5.1) mmol/L Chloride 102 (98-107) mmol/L Carbon Dioxide 20 L (22-32) mmol/L BUN 26 H (9-20) mg/dL Creatinine 1.69 H (0.66-1.25) mg/dL Estimated GFR 39 L (>60) mL/min BUN/Creatinine Ratio 15.4 (6-22) Glucose 181 H (80-110) mg/dL Lactate 1.7 (0.7-2.1) mmol/L Calcium 9.2 (8.4-10.2) mg/dL Total Bilirubin 1.8 H (0.2-1.3) mg/dL AST 30 (17-59) IU/L ALT 29 (<50) IU/L Alkaline Phosphatase 72 (38-126) U/L Total Creatine Kinase 108 (55-170) U/L Troponin I 0.016 (0.01-0.034) ng/mL NT-Pro-B Natriuret Pep 2970 H (<450) pg/mL Total Protein 7.7 (6.3-8.2) g/dL Albumin 4.1 (3.5-5.0) g/dL Globulin 3.6 (1.7-4.1) g/dL Albumin/Globulin Ratio 1.1 (1.0-2.8) Lipase 34 (23-300) U/L Procalcitonin 0.422 (<0.5) ng/mL Urine RBC 0-1/hpf (0-5/HPF) Urine WBC 0-1/hpf (0-5/HPF) Ur Squamous Epith Cells 0-1 /hpf (0-5/HPF) Amorphous Sediment 2+ Urine Bacteria Occasional (0-1) (None) Urine Mucus 2+ H (Negative) Ur Culture Indicated? Cult not indicated Vol Urine Centrifuged 10ml (spun) Chlamy pneumoniae PCR Not detected (Not Detect) Adenovirus (PCR) Not detected (Not Detect) B. pertussis DNA (PCR) Not detected (Not Detect) B.parapertussis DNA PCR Not detected (Not Detecte) Coronavirus OC43 (PCR) Not detected (Not Detect) Coronavirus HKU1 (PCR) Not detected (Not Detect) Coronavirus 229E (PCR) Not detected (Not Detect) SARS-CoV-2 (PCR) Not detected (Not Detecte) Coronavirus NL63 (PCR) Not detected (Not Detect) Human Metapneumovir PCR Not detected (Not Detect) Influenza Type A (PCR) Not detected (Not Detect) Influenza Type B (PCR) Not detected (Not Detect) M. pneumoniae (PCR) Not detected (Not Detect) Parainfluenza 1 (PCR) Not detected (Not Detect) Parainfluenza 2 (PCR) Not detected (Not Detect) Parainfluenza 3 (PCR) Not detected (Not Detect) Parainfluenza 4 (PCR) Not detected (Not Detect) RSV (PCR) Not detected (Not Detect) Entero/Rhino (PCR) Not detected (Not Detect) 01/26/24 Range/Units 21:00 WBC (4.5-11.0) X10^3/uL RBC (4.5-5.9) X10^6/uL Hgb (13.5-17.5) g/dL Hct (41-53) % MCV (80-100) fL MCH (26-34) PG MCHC (30-36) % RDW (11.6-14.8) % Plt Count (150-400) X10^3/uL Neut % (Auto) Lymph % (Auto) [place] % (Auto) Eos % (Auto) Baso % (Auto) Lymph # (Auto) [place] # (Auto) Baso # (Auto) Total Counted Seg Neutrophils % (38-70) % Band Neutrophils % (3-7) % Lymphocytes % (Manual) (25-45) % Monocytes % (Manual) (2-11) % Basophils % (Manual) (0-1) % Neutrophils # (Manual) (3317-8268) /uL RBC Morphology PT (9.4-12.5) SECONDS INR (0.9-1.3) APTT (25.1-36.5) SECONDS Sodium (137-145) mmol/L Potassium (3.4-5.1) mmol/L Chloride (98-107) mmol/L Carbon Dioxide (22-32) mmol/L BUN (9-20) mg/dL Creatinine (0.66-1.25) mg/dL Estimated GFR (>60) mL/min BUN/Creatinine Ratio (6-22) Glucose (80-110) mg/dL Lactate (0.7-2.1) mmol/L Calcium (8.4-10.2) mg/dL Total Bilirubin (0.2-1.3) mg/dL AST (17-59) IU/L ALT (<50) IU/L Alkaline Phosphatase (38-126) U/L Total Creatine Kinase 122 (55-170) U/L Troponin I 0.014 (0.01-0.034) ng/mL NT-Pro-B Natriuret Pep (<450) pg/mL Total Protein (6.3-8.2) g/dL Albumin (3.5-5.0) g/dL Globulin (1.7-4.1) g/dL Albumin/Globulin Ratio (1.0-2.8) Lipase (23-300) U/L Procalcitonin (<0.5) ng/mL Urine RBC (0-5/HPF) Urine WBC (0-5/HPF) Ur Squamous Epith Cells (0-5/HPF) Amorphous Sediment Urine Bacteria (None) Urine Mucus (Negative) Ur Culture Indicated? Vol Urine Centrifuged Chlamy pneumoniae PCR (Not Detect) Adenovirus (PCR) (Not Detect) B. pertussis DNA (PCR) (Not Detect) B.parapertussis DNA PCR (Not Detecte) Coronavirus OC43 (PCR) (Not Detect) Coronavirus HKU1 (PCR) (Not Detect) Coronavirus 229E (PCR) (Not Detect) SARS-CoV-2 (PCR) (Not Detecte) Coronavirus NL63 (PCR) (Not Detect) Human Metapneumovir PCR (Not Detect) Influenza Type A (PCR) (Not Detect) Influenza Type B (PCR) (Not Detect) M. pneumoniae (PCR) (Not Detect) Parainfluenza 1 (PCR) (Not Detect) Parainfluenza 2 (PCR) (Not Detect) Parainfluenza 3 (PCR) (Not Detect) Parainfluenza 4 (PCR) (Not Detect) RSV (PCR) (Not Detect) Entero/Rhino (PCR) (Not Detect) Urine Dip Bedside Urine Glucose Negative Bedside Urine Bilirubin - Negative Bedside Urine Ketone - Negative Urine Specific [place] 1.020 Bedside Urine Occult Blood +/- Bedside Urine pH 6.0 Bedside Urine Protein + 30 Bedside Urine Urobilinogen - Negative Bedside Urine Nitrite - Negative Bedside Urine Leukocytes - Negative Esterase Imaging Data Chest x-ray: Radiologist's Impression: PROCEDURE: XR CHEST 1V INDICATIONS: suspected sepsis TECHNIQUE: One view of the chest was acquired. COMPARISON: [facility], XR CHEST 1V, 11/13/2023, 14:39. [facility], XR CHEST 1V, 08/13/2023, 12:58. FINDINGS: Surgical changes and devices: None. Lungs and pleura: Small left pleural effusion with left basilar atelectasis. Right lung is clear. No pneumothorax. Mediastinum: Cardiac silhouette is enlarged. Bones and chest wall: No suspicious bony lesions. Overlying soft tissues appear unremarkable. IMPRESSION: Cardiomegaly. Small left pleural effusion with left basilar atelectasis. Approved by: Nnamdi Dewitt M.D. on 01/26/2024 at 19:34 ECG Data Attestation: I personally reviewed and interpreted this ECG as follows: Prior ECG tracings: available for review Interpretation: Sinus rhythm rate 75 [place] interval 1 68 QRS 122 QTC 453 does not appear he has some ST elevation 2 3 and AVF I do not see reciprocal depression he has a chronic right bundle-branch ST changes are new from previous EKGs MDM Narrative Medical decision making narrative: MDM CC: Increasing confusion shortness of breath Complicating co-morbidities: CVA with right-sided hemiparesis aphasia resides at assisted living facility Data collected from: Son KENNY Medical records reviewed: Previous ED visit on 11/13/2023 for dyspnea provider documentation reviewed. Patient blood work EKGs given albuterol and discharged home Differential considered: Sepsis congestive heart failure pulmonary embolism COPD exacerbation Exam documented above, pertinent findings include: Patient obviously dyspneic not diaphoretic possibly left upper quadrant pain Lab Test results independently reviewed as above. Pertinent findings: WBC 20 Creatinine 1.69 Lactate 1.7 Troponin 0.016 --> pending BNP 2970 blood cultures pending Viral panel negative urinalysis negative Independently reviewed EKG as above: New ST elevation noted in inferior leads no reciprocal depression, new and worsened from prior EKGs Repeat EKGs shows significantly worse elevation Imaging studies independently reviewed: New ST elevation noted in inferior leads without reciprocal changes persistent ST elevation on 2nd and 3rd EKGs Consultations: 2100 Dr. Chauhan cardiology updated on patient's symptoms test results has reviewed EKGs. Agrees that there is significant change. If family would consent to procedure he is happy to do so. Dr. Roche Located Within [facility] Emergency Department updated patient's symptoms test results Treatments: Rocephin Heparin he has an allergy to aspirin Plavix was not given there was concern for aphasia by nursing but he does take pills orally Re-evaluations: Patient is not actively having chest pain but difficult to provide any sort of history Discussion: Patient 88-year-old male history of CVA right-sided deficits aphasia presenting today with increasing shortness of breath. He is denying any sort of pain. He initially had low-grade temp of a 100.3? leukocytosis of 20 suspicion for sepsis and infection. No source of infection viral panel negative urinalysis negative chest x-ray does not show any sort of pneumonia. Upon further evaluation EKGs does show elevation in inferior leads repeat EKGs shows worsening elevation. Discussion with son at bedside in regards to transferring to higher level of care for cardiac intervention. He agrees. Patient is started on heparin given Rocephin. He has an allergy to aspirin in his in able to swallow secondary to his aphasia. Plan was to have patient go through CT scanner to look for source of infection with up abdomen and chest. However with the EKGs changes that was held and patient was transferred emergently for cardiac intervention. Critical Care Time Critical Care Time Critical Care Time: Yes Total Critical Care Time: 45 Attestation: The high probability of a clinically significant, sudden or life threatening deterioration of the [cardiovascular] system(s) required my full and direct attention, intervention and personal management. The aggregate critical care time was [45] minutes. This time is in addition to time spent performing reported procedures but includes the following: [x] Data Review and interpretation [x] Patient assessment and monitoring of vital signs [x] Documentation [x] Medication orders and management Discharge Plan Departure Patient Disposition: [facility] Clinical Impression: Acute ST elevation myocardial infarction (STEMI) of inferior wall Prescriptions: No Action clopidogrel 75 mg tablet 75 mg PO DAILY albuterol sulfate 0.63 mg/3 mL Solution For Nebulization 0.63 mg INHALATION Q4H PRN (Reason: SOB) acetaminophen 325 mg Tablet 650 mg PO Q4-6H PRN (Reason: Pain (Scale Score 1-3)) venlafaxine 75 mg tablet 75 mg PO BID tizanidine 2 mg tablet 2 mg PO BEDTIME Patient Comments: May take one more tablet as needed famotidine 20 mg tablet 20 mg PO DAILY PRN (Reason: GERD) cholecalciferol (vitamin D3) [Vitamin D3] 50 mcg (2,000 unit) Tablet 50 mcg PO DAILY atorvastatin 40 mg tablet 40 mg PO BEDTIME amlodipine 5 mg tablet 7.5 mg PO DAILY losartan 100 mg tablet 100 mg PO DAILY metformin 500 mg Tablet 500 mg PO BID Referrals: Miscellaneous,Doctor, MD [Primary Care Provider] -
[2024-01-26 19:57] LABS: Adenovirus Not Detected (Not Detect); B. parapertussis Not Detected (Not Detecte); Bordetella pertussis Not Detected (Not Detect); Chlamydophila pneumoniae Not Detected (Not Detect); Coronavirus 229E Not Detected (Not Detect); Coronavirus HKU1 Not Detected (Not Detect); Coronavirus NL 63 Not Detected (Not Detect); Coronavirus OC43 Not Detected (Not Detect); Human Metapneumovirus Not Detected (Not Detect); Human Rhinovirus/Enterovirus Not Detected (Not Detect); Influenza A Not Detected (Not Detect); Influenza B Not Detected (Not Detect); Mycoplasma pneumoniae Not Detected (Not Detect); Parainfluenza Virus 1 Not Detected (Not Detect); Parainfluenza Virus 2 Not Detected (Not Detect); Parainfluenza Virus 3 Not Detected (Not Detect); Parainfluenza Virus 4 Not Detected (Not Detect); Respiratory Syncytial Virus Not Detected (Not Detect); SARS- CoV-2 Not Detected (Not Detecte)
[2024-01-26 20:39] LABS: Amorphous Sediment Urine 2+; Bacteria Urine Occasional (0-1); RBC Urine 0-1/HPF (0-5/HPF); Squamous Epithelial Cell Urine 0-1 /HPF (0-5/HPF); Urine Volume 10mL (spun); WBC Urine 0-1/HPF (0-5/HPF)
[2024-01-26 20:40] LABS: Culture Indicated Urine Cult Not Indicated; Mucus Urine 2+ (Negative)
[2024-01-26] MEDS: FUROSEMIDE 40 MG/4 ML VIAL IV (20:43)
--- NOTE | 2024-01-26 20:47 | EKG_ITS ---
[address] [address] [place] [address] Test Date: 2024-01-26 Pat Name: Dhruv Hernandez Department: [facility] Room: Gender: Male Finding Fastener: : 1935 Requested By: Order Number: [id number] Reading MD: Daniel Cortez Measurements Intervals [place] Rate: 76 P: 39 MA: 172 QRS: 71 QRSD: 118 T: 55 QT: 400 QTc: 450 Interpretive Statements Sinus rhythm with premature atrial complexes Incomplete right bundle branch block ST elevation, consider early repolarization, pericarditis, or injury Electronically Signed On 01-28-2024 19:03:20 PST by Daniel Cortez
[2024-01-26] MEDS: ALBUTEROL/IPRATROPIUM 3 ML AMPUL INH (20:53)
[2024-01-26] MEDS: HEPARIN 5,000 UNIT/ML VIAL 5000 UNIT IV (21:07)
--- NOTE | 2024-01-26 21:07 | EKG_ITS ---
[address] [address] Test Date: 2024-01-26 Pat Name: Dhruv Hernandez Department: [facility] Room: Gender: Male Policyholder Information Clerk: : 1935 Requested By: Order Number: [id number] Reading MD: Daniel Cortez Measurements Intervals [place] Rate: 76 P: 34 RI: 164 QRS: 68 QRSD: 124 T: 56 QT: 404 QTc: 454 Interpretive Statements Normal sinus rhythm with sinus arrhythmia Right bundle branch block Cannot rule out Inferior infarct , age undetermined Electronically Signed On 01-28-2024 19:03:21 PST by Daniel Cortez
[2024-01-26] MEDS: HEPARIN DRIP 25,000 UNIT/500 ML IV.SOLN 20 UNIT IV (21:18)
[2024-01-26 21:21] LABS: Creatine Kinase 122 U/L (55-170)
[2024-01-26 21:34] LABS: Troponin I 0.014 ng/mL (0.01-0.034)
--- NOTE | 2024-01-26 21:38 | PC.NURSE ---
Pt sent to [facility], Provider noted EKG changes and elevated troponin.
== END 2024-01-26 21:43 | disposition short-term general hospital (02) ==
PROVIDERS: Emergency Medicine; Emergency Provider Emergency Medicine; Family Provider Family Medicine
DX: I21.3 ST elevation (STEMI) myocardial infarction of unspecified site (principal); R06.02 Shortness of breath; Z11.52 Encounter for screening for COVID-19; I69.320 Aphasia following cerebral infarction; I51.7 Cardiomegaly; I45.10 Unspecified right bundle-branch block
CPT/HCPCS: 36415; 71045; 80053; 81003; 81015; 82550; 83605; 83690; 83880; 84145; 84484; 85007; 85025; 85610; 85730; 87040; 87633; 93005; 96365; 96375; 99285; 99291; J0696; J1644; J1940